=== PATIENT | male | born 1945 | race Caucasian/White ===

== ENCOUNTER 2019-03-02 16:14 | Outpatient (REF) | payer MEDICARE, BC, SELFPAY ==
[2019-03-02 19:42] LABS: ALT 34 U/L (12-78); AST 27 U/L (15-37); Albumin 3.6 g/dL (3.4-5.0); Alkaline Phosphatase 80 U/L (46-116); Anion Gap 7.6 mmol/L (3-11); BUN 16 mg/dL (7-18); Bilirubin, Total 1.4 mg/dL (0.2-1.0); CO2 28.4 mmol/L (21.0-32.0); CREATININE 0.84 mg/dL (0.70-1.30); Calcium 8.5 mg/dL (8.5-10.1); Chloride 105 mmol/L (98-107); Cholesterol 127 mg/dL (50-200); Glucose 101 mg/dL (70-100); HDL Cholesterol 65 mg/dL (40-60); LDL CHOLESTEROL 56 mg/dL (<100); Potassium 4.6 mmol/L (3.5-5.1); Sodium 141 mmol/L (136-145); Total Protein 6.6 g/dL (6.4-8.2); Triglyceride 31 mg/dL (30-150)
[2019-03-02 20:11] LABS: Creatine Kinase 109 U/L (39-308)
== END 2019-03-02 16:34 ==
LOC: NCHCN 16:14
PROVIDERS: PCP Internal Medicine; Visit Provider Internal Medicine
DX: E78.5 Hyperlipidemia, unspecified (principal); I10 Essential (primary) hypertension
CPT/HCPCS: 80053; 80061; 82550; 83721

== ENCOUNTER 2019-08-26 12:28 | Outpatient (REF) | payer MEDICARE, BC, SELFPAY ==
[2019-08-26 19:35] LABS: INR 1.1 (0.9-1.1); Prothrombin Time 11.4 sec (9.3-11.0)
[2019-08-26 19:37] LABS: ALT 28 U/L (16-63); AST 25 U/L (15-37); Albumin 3.7 g/dL (3.4-5.0); Alkaline Phosphatase 91 U/L (46-116); Anion Gap 7.3 mmol/L (3-11); BUN 20 mg/dL (7-18); Bilirubin, Total 1.2 mg/dL (0.2-1.0); CO2 26.7 mmol/L (21.0-32.0); CREATININE 0.91 mg/dL (0.70-1.30); Chloride 107 mmol/L (98-107); Glucose 101 mg/dL (70-100); Potassium 4.5 mmol/L (3.5-5.1); Sodium 141 mmol/L (136-145); Total Protein 6.9 g/dL (6.4-8.2)
[2019-08-26 19:41] LABS: HCT 39.6 % (40.0-50.0); HGB 13.1 g/dL (13.5-17.5); Mean Corp. HGB Concentration 33.1 g/dL (32.0-36.0); Mean Corpuscular Hemoglobin 31.6 pg (27.0-33.0); Mean Corpuscular Volume 95.4 fL (80-95); Mean Platelet Volume 11.1 fL (8.0-11.0); Platelet Count 181 x1000/uL (130-400); RBC 4.15 m/cumm (4.50-6.00); RBC Distribution Width 12.8 % (11.8-14.1); White Blood Cell Count 5.24 k/cumm (4.4-10.8)
== END 2019-08-26 12:48 ==
LOC: NCHCN 12:28
PROVIDERS: PCP Internal Medicine; Visit Provider Internal Medicine
DX: I48.91 Unspecified atrial fibrillation (principal); R73.09 Other abnormal glucose; G56.22 Lesion of ulnar nerve, left upper limb; E66.9 Obesity, unspecified
CPT/HCPCS: 80053; 85027; 85610

== ENCOUNTER 2019-11-24 18:43 | Outpatient (REF) | payer MEDICARE, BC, SELFPAY ==
[2019-11-24 20:59] LABS: Abs Immature Grans 0.01 k/cumm (0.0-0.09); Absolute Basophil Count 0.03 k/cumm (0.0-0.2); Absolute Eosinophil Count 0.22 k/cumm (0.0-0.7); Absolute Lymphocyte Count 1.46 k/cumm (1.2-3.4); Absolute Monocyte Count 0.83 k/cumm (0.11-0.7); Absolute Neutrophil Count 4.15 k/cumm (1.2-6.7); Basophils % 0.4; Eosinophils % 3.3; HCT 38.6 % (40.0-50.0); HGB 13.1 g/dL (13.5-17.5); Immature Grans % 0.1 %; Lymphocytes % 21.8; Mean Corp. HGB Concentration 33.9 g/dL (32.0-36.0); Mean Corpuscular Hemoglobin 32.2 pg (27.0-33.0); Mean Corpuscular Volume 94.8 fL (80-95); Monocytes % 12.4; Platelet Count 171 x1000/uL (130-400); RBC 4.07 m/cumm (4.50-6.00)
[2019-11-24 21:04] LABS: Anion Gap 6.7 mmol/L (3-11); BUN 21 mg/dL (7-18); CO2 30.3 mmol/L (21.0-32.0); CREATININE 1.02 mg/dL (0.70-1.30); Calcium 8.7 mg/dL (8.5-10.1); Chloride 104 mmol/L (98-107); Glucose 96 mg/dL (74-106); Potassium 4.3 mmol/L (3.5-5.1); Sodium 141 mmol/L (136-145)
== END 2019-11-24 19:03 ==
LOC: NCHCN 18:43
PROVIDERS: PCP Internal Medicine; Visit Provider Internal Medicine Cardiovascular Disease
DX: I48.91 Unspecified atrial fibrillation (principal)
CPT/HCPCS: 80048; 85025

== ENCOUNTER 2020-10-02 14:46 | Outpatient (REF) | payer MEDICARE, BC, SELFPAY ==
[2020-10-02 20:08] LABS: HCT 39.4 % (40.0-50.0); HGB 12.9 g/dL (13.5-17.5); MCH 31.5 pg (27.0-33.0); MCHC 32.7 % (32.0-36.0); MCV 96.3 fL (80-95); Platelet Count 155 10^3/uL (130-400); RBC 4.09 10^6/uL (4.36-5.78); RDW 12.6 % (11.8-14.1); RDW-SD 44.9 fL
[2020-10-02 20:19] LABS: ALT 25 U/L (16-63); AST 27 U/L (15-37); Albumin 3.7 g/dL (3.4-5.0); Alkaline Phosphatase 92 U/L (46-116); Anion Gap 6.5 mmol/L (3-11); BUN 17 mg/dL (7-18); Bilirubin, Total 1.3 mg/dL (0.2-1.0); CO2 26.5 mmol/L (21.0-32.0); CREATININE 0.96 mg/dL (0.70-1.30); Calcium 8.9 mg/dL (8.5-10.1); Chloride 105 mmol/L (98-107); Glucose 145 mg/dL (74-106); Potassium 4.1 mmol/L (3.5-5.1); Sodium 138 mmol/L (136-145); Total Protein 6.9 g/dL (6.4-8.2)
== END 2020-10-02 15:06 ==
LOC: NCHCN 14:46
PROVIDERS: PCP Internal Medicine; Visit Provider Internal Medicine
DX: I10 Essential (primary) hypertension (principal); I48.91 Unspecified atrial fibrillation; Z72.89 Other problems related to lifestyle
CPT/HCPCS: 80053; 85027

== ENCOUNTER 2020-11-06 20:57 | Outpatient (REF) | payer MEDICARE, BC, SELFPAY ==
[2020-11-06 19:54] LABS: Bacteria Negative HPF (Negative); C & S Indicated? No; Casts Negative LPF (Negative); Crystals Negative HPF (Negative); Epithelial Cells Rare HPF (Negative); Mucus Negative (Negative); WBC 0-2 HPF (0-5)
== END 2020-11-06 21:17 ==
LOC: NCHCN 20:57
PROVIDERS: PCP Internal Medicine; Visit Provider Internal Medicine
DX: R36.1 Hematospermia (principal)
CPT/HCPCS: 81015

== ENCOUNTER 2021-02-01 17:42 | Outpatient (REF) | payer MEDICARE, BC, SELFPAY ==
[2021-02-01 18:09] LABS: Epithelial Cells Rare HPF (Negative); Other Cells Few Renal (Negative); RBC 0-2 HPF (0-2); WBC 20-50 HPF (0-5)
[2021-02-01 18:10] LABS: Bacteria Few HPF (Negative); C & S Indicated? Yes; Casts Negative LPF (Negative); Crystals Negative HPF (Negative); Mucus Negative (Negative)
== END 2021-02-01 17:43 | disposition home or self-care (01) ==
LOC: NCHCN 17:42
PROVIDERS: PCP Internal Medicine; Visit Provider Internal Medicine
DX: R31.9 Hematuria, unspecified (principal)
CPT/HCPCS: 81015; 87086

== ENCOUNTER 2021-02-05 13:33 | Outpatient (REF) | payer MEDICARE, BC, SELFPAY | END 2021-02-05 13:34 | disposition home or self-care (01) | LOC: NCHCN 13:33 | PROVIDERS: PCP Internal Medicine; Visit Provider Internal Medicine | DX: R31.9 Hematuria, unspecified (principal) | CPT/HCPCS: 87086 ==

== ENCOUNTER 2021-07-17 09:36 | Outpatient (REF) | payer MEDICARE, BC, SELFPAY ==
[2021-07-17 17:37] LABS: HCT 38.9 % (40.0-50.0); HGB 12.8 g/dL (13.5-17.5); MCH 31.6 pg (27.0-33.0); MCHC 32.9 % (32.0-36.0); MPV 10.9 fL (8.0-11.0); Platelet Count 156 10^3/uL (130-400); RBC 4.05 10^6/uL (4.36-5.78); RDW 12.9 % (11.8-14.1); RDW-SD 45.5 fL; WBC 5.33 10^3/uL (4.4-10.8)
[2021-07-17 17:59] LABS: ALT 30 U/L (16-63); AST 25 U/L (15-37); Anion Gap 8.9 mmol/L (3-11); BUN 12 mg/dL (7-18); CO2 27.1 mmol/L (21.0-32.0); CREATININE 0.8 mg/dL (0.70-1.30); Calcium 8.7 mg/dL (8.5-10.1); Calculated LDL 62 mg/dL (<100); Chloride 106 mmol/L (98-107); Cholesterol 138 mg/dL (<200); Glucose 103 mg/dL (74-106); HDL Cholesterol 68 mg/dL (40-60); Potassium 4.8 mmol/L (3.5-5.1); Sodium 142 mmol/L (136-145); Triglyceride 41 mg/dL (<150)
[2021-07-17 18:14] LABS: Creatine Kinase 143 U/L (39-308)
== END 2021-07-17 09:37 | disposition home or self-care (01) ==
LOC: NCHCN 09:36
PROVIDERS: PCP Internal Medicine; Visit Provider Internal Medicine
DX: Z79.01 Long term (current) use of anticoagulants (principal); I25.810 Atherosclerosis of coronary artery bypass graft(s) without angina pectoris
CPT/HCPCS: 80048; 80061; 82550; 85027; 84450; 84460

== ENCOUNTER 2021-08-29 17:53 | Outpatient (REF) | payer MEDICARE, BC, SELFPAY ==
[2021-08-30 07:12] LABS: COMMENT (LAB VIEW ONLY) 107.64 mg/dL; Microalb ug/mg Crea 11.1 ug/mg Cr
[2021-08-30 18:29] LABS: PSA, Screening 6.6 ng/mL (0.0-6.5)
== END 2021-08-29 17:54 | disposition home or self-care (01) ==
LOC: NCHCN 17:53
PROVIDERS: PCP Internal Medicine; Visit Provider Internal Medicine
DX: Z12.5 Encounter for screening for malignant neoplasm of prostate (principal); R31.9 Hematuria, unspecified
CPT/HCPCS: 84153; 82043; 82570; 87086

== ENCOUNTER 2021-09-27 02:10 | Outpatient (CLI) | payer MEDICARE, BC, SELFPAY ==
--- NOTE | 2021-09-27 | DI.CT_ITS ---
Exam(s) CT ABDOMEN PELVIS WO/W EXAM: CT ABDOMEN PELVIS WO/W CLINICAL HISTORY: HEMATURIA R31.9. TECHNIQUE: Imaging Protocol: Axial computed tomography images with coronal and sagittal reformatted images were created and reviewed CONTRAST MATERIAL: Intravenous: Omnipaque 100cc Oral: None COMPARISON: No exams were available for comparison FINDINGS: VISUALIZED LUNG BASES: There is a 3 millimeter noncalcified nodule in the right lung base posterior b kelle segment. No pleural effusions.. ABDOMEN: There is no ascites. LIVER: There are no focal hepatic lesions evident . GALLBLADDER/BILIARY: Multiple calculi are noted gallbladder. Largest calculus measures 1.5 cm. Gall bladder wall is not edematous and no pericholecystic fluid. CBD is not dilated. PANCREAS: No evidence of obvious pancreatic mass. No obvious dilatation pancreatic duct. Dilatation of the pancreatic duct. SPLEEN: Spleen is not enlarged. No obvious intrasplenic lesions. Splenic and portal veins are paten t. ADRENALS: There are no significant adrenal masses. KIDNEYS:There is a small benign exophytic cyst at the anterior cortex of the right kidney which measu res 9 x 9 millimeters. Another similar size 9 millimeter cyst is seen in the inferior pole of the op posite-left kidney. There are no solid renal masses. No calculi nor hydronephrosis.. URETERS: Single nondilated ureter on each side. URINARY BLADDER: Not distended. Right-sided Hutch diverticulum measuring 2.5 x 2.0 cm. No mass nor calculus within this diverticulum. PROSTATE GLAND: Enlarged and lobulated. It projects into the bladder base. No other obvious bladder findings. ABDOMINAL AORTA: There is an low infrarenal abdominal aortic aneurysm just below the ISABELA, exhibiting maximum diameter of 3 cm and appearing saccular.. LYMPH NODES:There is no retroperitoneal nor paraaortic adenopathy. ABDOMINAL WALL: Fat containing small umbilical hernia. No bowel loops therein. No significant ingui nal hernia. GI: There is no evidence of bowel obstruction, free air, nor abscess. PELVIS: GI: No evidence of appendicitis.Sigmoid diverticulosis but no obvious acute diverticulitis. LYMPH NODES: There is no intrapelvic nor inguinal adenopathy. REPRODUCTIVE: Enlarged partially calcified lobulated prostate gland. URINARY BLADDER: As above. OSSEOUS: Sternotomy wires. No lytic osseous lesions. No blastic osseous seen. Multilevel chronic degenerative disc disease. No compression fractures IMPRESSION: 1. Cholelithiasis. Multiple gallstones. No gallbladder wall edema nor dilatation of the biliary charles e. 2. Solitary small cyst in each kidney. No solid renal masses. No calculi nor hydronephrosis. There is a solitary nondilated ureter on each side 3. Enlarged and lobulated partially calcified prostate gland projecting into the bladder base. The b ladder is not distended but does exhibit a right-sided Hutch diverticulum measuring 25 x 20 millimete rs. There is no mass nor calculus evident within the Hutch diverticulum. 4. There is a 3 cm saccular appearing low infrarenal abdominal aortic aneurysm just above the aortic bifurcation. No leak at this time. RADIATION DOSE DELIVERED: 4,445.64mGy.cm Total DLP DATA REPOSITORY: All CT scans at this facility are submitted to the National Radiology Data Registry (NRDR) Dose Index Registry (DIR) with the [employer] (ACR). RADIATION OPTIMIZATION: All CT scans at this facility use at least one of these dose optimization te chniques: automated exposure control; mA and/or kV adjustment per patient size (includes targeted exa ms where dose is matched to clinical indication); or iterative reconstruction.
[2021-09-27] MEDS: Omnipaque 350 MG/ML 100 ML BTL IJ (13:59)
== END 2021-09-27 02:30 ==
PROVIDERS: PCP Internal Medicine; Visit Provider Internal Medicine
DX: R31.9 Hematuria, unspecified (principal); N28.1 Cyst of kidney, acquired; N32.3 Diverticulum of bladder; N40.0 Benign prostatic hyperplasia without lower urinary tract symptoms; I71.4 Abdominal aortic aneurysm, without rupture; K80.20 Calculus of gallbladder without cholecystitis without obstruction
CPT/HCPCS: 74178; J3490

== ENCOUNTER → 2021-11-28 08:53 | Outpatient (BNVA) | payer MEDICARE, BC, SELFPAY | PROVIDERS: PCP Internal Medicine; Referring Provider Internal Medicine; Visit Provider Nurse Practitioner Gerontology | DX: R31.0 Gross hematuria (principal); R97.20 Elevated prostate specific antigen [PSA]; Z12.5 Encounter for screening for malignant neoplasm of prostate; Z80.42 Family history of malignant neoplasm of prostate | CPT/HCPCS: 36415; 81003; 99205 ==

== ENCOUNTER 2021-11-28 10:46 | Outpatient (REF) | payer MEDICARE, BC, SELFPAY ==
[2021-11-28 22:39] LABS: PSA, Diagnostic 9.2 ng/mL (0.0-6.5)
== END 2021-11-28 10:47 | disposition home or self-care (01) ==
LOC: LBN 10:46
PROVIDERS: PCP Internal Medicine; Visit Provider Nurse Practitioner Gerontology
DX: R31.9 Hematuria, unspecified (principal); R97.20 Elevated prostate specific antigen [PSA]
CPT/HCPCS: 84153

== ENCOUNTER 2021-12-03 01:41 | Outpatient (CLI) | payer MEDICARE, BC, SELFPAY ==
[2021-12-03 14:36] LABS: CREATININE 0.8 mg/dL (0.70-1.30)
== END 2021-12-03 01:42 | disposition home or self-care (01) ==
LOC: LBO 01:41
PROVIDERS: PCP Internal Medicine; Visit Provider Nurse Practitioner Gerontology
DX: R31.9 Hematuria, unspecified (principal)
CPT/HCPCS: 36415; 82565

== ENCOUNTER → 2022-01-01 12:52 | Outpatient (BNVA) | payer MEDICARE, BC, SELFPAY | PROVIDERS: PCP Internal Medicine; Referring Provider Internal Medicine; Visit Provider Nurse Practitioner Gerontology | DX: R31.0 Gross hematuria (principal); R97.20 Elevated prostate specific antigen [PSA]; Z80.42 Family history of malignant neoplasm of prostate | CPT/HCPCS: 99215 ==

== ENCOUNTER 2022-01-08 01:11 | Outpatient (CLI) | payer MEDICARE, BC, SELFPAY ==
--- NOTE | 2022-01-08 07:30 | DI.US_ITS ---
Exam(s) US PROSTATE BIOPSY EXAM: US PROSTATE BIOPSY CLINICAL HISTORY: pelvic MRI RAD 5,prostate nodule,n40.2 TECHNIQUE: Transrectal prostate ultrasound was provided for Dr. Morgan for guidance with performing p rostate biopsy. COMPARISON: No exams were available for comparison FINDINGS: Prostate volume 60 cc. Twelve biopsy samples were obtained. Please see procedure note for details. DATA REPOSITORY:
--- NOTE | 2022-01-08 14:00 | PROST_PTH ---
PATIENT: Parag Cervantes LOC: [facility]#:[id number] AGE/SX: 76/M ROOM: RE01/08/[address]: Rajni Galeano DNP : 1945 BED: DIS: 01/08/2022 SPEC #: [id number] RECD: 01/08/22 15:50 STATUS: CRIS REChristy #: [id number] DONTE: 01/08/22 14:[address]: Renaldo Morgan DEPT: Surgical Specimen RECD BY: Bela Hayes ENTERED: 01/08/22 15:52 SP TYPE: PROST OTHR DR: BERYL Cotton Robert E Tissues: 1 - PROSTATE NEEDLE BIOPSY 2 - PROSTATE NEEDLE BIOPSY 3 - PROSTATE NEEDLE BIOPSY 4 - PROSTATE NEEDLE BIOPSY 5 - PROSTATE NEEDLE BIOPSY 6 - PROSTATE NEEDLE BIOPSY 7 - PROSTATE NEEDLE BIOPSY 8 - PROSTATE NEEDLE BIOPSY 9 - PROSTATE NEEDLE BIOPSY 10 - PROSTATE NEEDLE BIOPSY 11 - PROSTATE NEEDLE BIOPSY 12 - PROSTATE NEEDLE BIOPSY Procedures: GROSS AND MICRO LEVEL 4 Comments: [id number]
--- NOTE | 2022-01-08 14:40 | ROE_ITS ---
Date of service: 01/08/22 Time of Service: 14:41 Operative Note Operative Note DATE OF PROCEDURE: 01/08/22 PRE-OP DIAGNOSIS: Elevated PSA POST-OP DIAGNOSIS: same Abnormal prostate MRI PROCEDURE: Ultrasound guided biopsy of the prostate SURGEON: Renaldo Morgan ANESTHESIA TYPE: Local By Surgeon Refer to Anesthesia Record ESTIMATED BLOOD LOSS: 10 PATHOLOGY: other (12 laterally directed biopsies of the prostate sent for permanent section) COMPLICATIONS: None Patient was transported to: no change Patient's condition: stable Implants: None Indications: This is a 76-year gentleman who has a finding of an elevated PSA of 9.2 ng/mL. He was evaluated with a multiparameter prostate MRI. There was a suspicious finding in the prostate in the right anterior mid gland (PI-RADS 5) the left posterior lateral mid prostate (PI-RADS 4) and in the transition zone toward the mid gland and base (PI-RADS 5). He presents for ultrasound-guided biopsy of the prostate Findings: Multiple calcifications at the junction of the transition and peripheral zones Procedure Description: The patient was given a antibiotic and mechanical bowel prep. He was brought to the radiology suite on 01/08/2022. He was placed in the left lateral position. Transrectal imaging of the prostate was then performed using a variable megahertz transducer. The prostate was imaged in transverse and longitudinal planes. The prostatic volume was calculated at 57 cc. No specific hypoechoic areas were seen in the peripheral zone. A periprostatic nerve block was then performed with 1% lidocaine without epine phrine. A total of 12 laterally directed prostate biopsies were then taken, labeled and sent to pathology for permanent section. The patient tolerated the procedure well with no complications. He will follow up in 1 to 2 weeks for his biopsy results. He may resume his Eliquis as soon as any blood in the urine or stool has subsided.
== END 2022-01-08 01:31 ==
PROVIDERS: PCP Internal Medicine; Visit Provider Nurse Practitioner Gerontology
DX: N40.2 Nodular prostate without lower urinary tract symptoms (principal); C61 Malignant neoplasm of prostate
CPT/HCPCS: 55700; 76942; 88305

== ENCOUNTER → 2022-01-17 15:10 | Outpatient (BNVA) | payer MEDICARE, BC, SELFPAY | PROVIDERS: PCP Internal Medicine; Referring Provider Internal Medicine; Visit Provider Urology | DX: C61 Malignant neoplasm of prostate (principal); R31.9 Hematuria, unspecified; N32.89 Other specified disorders of bladder; I48.91 Unspecified atrial fibrillation; I25.10 Atherosclerotic heart disease of native coronary artery without angina pectoris; Z79.01 Long term (current) use of anticoagulants; Z95.1 Presence of aortocoronary bypass graft | CPT/HCPCS: 99443 ==

== ENCOUNTER → 2022-01-30 01:44 | Outpatient (CLI) | payer MEDICARE, BC, SELFPAY ==
--- NOTE | 2022-01-30 15:03 | DI.US_ITS ---
APPROVED REPORT EXAM: Comprehensive 2D, Doppler, and color-flow Echocardiogram Patient Location: Out-Patient Seamstress Fitter: Sandi Reyna RDCS (AE) Indications: Pre operative exam, CAD, A Fib, Chronic anticoagulation, CABG Other Information Study Quality: Fair. Technically limited study due to body habitus. Conclusion Normal left ventricular wall thickness and chamber size. Estimated ejection fraction is 55%. No wal l motion abnormalities are identified Normal right ventricular size and systolic function The left atrium is moderately dilated. The right atrium is borderline dilated Mildly sclerotic trileaflet aortic valve without stenosis or regurgitation Mild mitral annular calcification. Mild mitral regurgitation Normal tricuspid valve with mild regurgitation. Estimated right ventricular systolic pressure is 30 mmHg Mildly dilated ascending aorta measuring 3.76 cm Wall motion Left Ventricle The left ventricle is normal size. The overall left ventricular systolic function appears normal. The re is normal left ventricular wall thickness. No wall motion abnormalities There is no ventricular se ptal defect visualized. LVEF is 55%. Right Ventricle Right ventricle is grossly normal in size. Right ventricular systolic function is grossly normal. Atria Left atrium is moderately dilated. Right atrium is borderline dilated. The interatrial septum is inta ct with no evidence for an atrial septal defect. Aortic Valve The Aortic valve is mildly sclerotic. Aortic valve is trileaflet. There is no aortic valvular stenosi s. No aortic regurgitation is present. Mitral Valve Mild mitral annular calcification. No evidence of mitral valve stenosis. Mild mitral regurgitation. Tricuspid Valve The tricuspid valve is normal in structure. There is no tricuspid valve stenosis. Mild tricuspid regu rgitation. The RVSP is 30.1 mmHg. Pulmonic Valve The pulmonary valve is normal in structure. There is no pulmonic valvular stenosis. Trace pulmonic re gurgitation. Great Vessels Aortic root is mildly dilated. The ascending aorta is mildly dilated. Aortic arch is not well visuali zed. IVC is normal in size and collapses >50% with inspiration. Pericardium There is no pericardial effusion. 2D Dimensions IVSD d PLAX 1.10 cm M: 0.6-1.2 LV Vol A2C d MOD 135.9 mL LVPW d PLAX 1.13 cm M: 0.6 - 1.2 LV Vol A4C d MOD 114.6 mL LVID d PLAX 4.51 cm M: 4.2 - 5.8 LA vol/ BSA A2C s A-L 65.5 mL/m2 LVDs 3.15 cm M: 2.5 - 4.0 LA vol/ BSA A4C s A-L 52.3 mL/m2 Ao Root d 3.91 cm M: 3.1 - 3.7 LA Vol/ BSA Biplane s A-L 60.7 mL/m2 RA Area A4C 16.14 cm2 LA Area A4C s MOD 30.55 cm2 RA Vol/ BSA A4C s A-L 19.1 mL/m2 LA Area A2C s MOD 35.48 cm2 Ao Asc Diam d 3.76 cm M: 2.6 - 3.4 LV EF A4C MOD 55.6 % LV EF Teichholz 56.9 % LV EF A2C MOD 46.6 % LVEF (Forde's) 49.14 % M: 52 - 72 LV EF Biplane MOD 49.1 % LV Volume 90.62 mL M: 62 - 150 SV 61.39 mL LV Volume Index 41.00 mL/m2 M: 34 - 74 SV Index 27.68 mL/m2 LV Vol Biplane MOD 124.9 mL FS 29.65 % M-Mode TAPSE 1.39 cm (M/F) >1.7 LV Diastology MV E' medial 0.093 (>0.07 m/s) MV E Vmax 1.00 (0.4-1.3 m/s) LV E/e MED 10.70 (<14) MV E' lateral 0.139 (>0.1 m/s) LV E/e LAT 7.15 (<14) MV E/E' medial 10.74 MV E/E' lateral 7.16 Aortic Valve LVOT Area 3.93 cm2 AoV Area Vmax 2.88 cm2 LVOT Vmax 1.00 m/s AoV Area/ BSA (Vmax) 1.30 cm2/m2 LVOT Mean Jean. 0.66 m/s JEFF Mean Jean. 2.67 cm2 LVOT Peak Grad 4.0 mmHg JEFF Mean Jean. Index 1.20 cm2/m2 LVOT Mean Grad 2.1 mmHg LVOT VTI 0.187 m LVOT Diam s 2.20 cm AoV Vmax 1.37 m/s Velocity Ratio 0.72 AoV Mean Jean. 0.98 m/s AoV Peak Grad 7.5 mmHg LVOT SV 73.57 mL AoV Mean Grad 4.3 mmHg AoV VTI 0.256 m AoV Area VTI 2.87 cm2 AoV Area/ BSA (VTI) 1.30 cm/m2 Mitral Valve MV DT 144 (160-240 msec) MR Vmax 4.47 m/s MV PHT 42 msec MR VTI 1.419 m MV Area PHT 5.26 cm2 MR Peak Grad 80.0 mmHg MV VTI 0.262 m MR Mean Grad 67.1 mmHg MV Area VTI 2.81 (4.0-6.0 cm2) Pulmonary Valve PV Vmax 1.24 (0.5-1.5 m/s) RVOT Peak Gr. 2.76 mmHg PV Peak Grad 6.1 mmHg RVOT Mean Gr. 1.40 mmHg PV Mean Grad 3.6 mmHg RVOT VTI 0.129 m PV VTI 0.234 m RVOT Vmax 0.83 m/s Tricuspid Valve TR Peak Grad 27.0 mmHg TR Vmax 2.60 m/s RA Pressure 3.00 mmHg RVSP (TR) 30.1 mmHg
== END ==
PROVIDERS: PCP Internal Medicine; Visit Provider Urology
DX: I25.10 Atherosclerotic heart disease of native coronary artery without angina pectoris (principal); I48.91 Unspecified atrial fibrillation; Z79.01 Long term (current) use of anticoagulants
CPT/HCPCS: 93306

== ENCOUNTER 2022-03-11 09:19 | Outpatient (CLI) | payer MEDICARE, BC, SELFPAY ==
--- NOTE | 2022-03-11 09:15 | RT.EKG_ITS ---
APPROVED REPORT Exam: Resting ECG Reason for Exam: Afib Patient Location: O HR:72 bpm ECG Measurements Heart Rate [address] [id number] P [id number] QRSd 94 QRS 61 QT 372 T 33 QTc 408 Conclusion Atrial fibrillation...V-rate 58- 93, irreg A-activity Borderline low voltage, extremity leads...all extremity leads <0.6mV PVC
== END 2022-03-11 09:20 | disposition home or self-care (01) ==
LOC: DI.CARD 09:20
PROVIDERS: PCP Internal Medicine; Visit Provider Internal Medicine Cardiovascular Disease
DX: I25.10 Atherosclerotic heart disease of native coronary artery without angina pectoris (principal); I48.91 Unspecified atrial fibrillation
CPT/HCPCS: 93010

== ENCOUNTER → 2022-03-11 11:04 | Outpatient (BNVA) | payer MEDICARE, BC, SELFPAY | PROVIDERS: PCP Internal Medicine; Referring Provider Urology; Visit Provider Internal Medicine Cardiovascular Disease | DX: I25.10 Atherosclerotic heart disease of native coronary artery without angina pectoris (principal); I48.91 Unspecified atrial fibrillation | CPT/HCPCS: 93005; 99203; 99214 ==

== ENCOUNTER → 2022-03-25 00:39 | Outpatient (CLI) | payer MEDICARE, BC, SELFPAY ==
--- NOTE | 2022-03-25 07:30 | DI.NM_ITS ---
APPROVED REPORT Exam: Exercise Treadmill Patient Location: Out-Patient Room/Bed: Stress Nurse: Thais Harding RN Ordering Provider:LORI ARANDA, Contact Number: [phone] BMI: 38.39 Baseline Rhythm: Atrial Fibrillation Comment: Frequent multi focal PVC's, occasional couplet Indications: Shortness of breath, fatigue, CAD Medical History Medical History: bladder mass, prostate CA, afib, angina, CAD, ETOH abuse, HLD, HTN, obesity, JOLENE, pr e DM, torn meniscus, shoulder impingement Cardiac Medications: Apixiban, Atorvastatin, Lisinopril, Metoprolol Allergies: None Cardiac Risk Factors: +Family history, HTN, HLD, CVD, pre DM, Obesity Previous Cardiac Procedures: CABG x4 (2016) Pretest Chest Pain Characteristics: No chest pain Exercise History: Sedentary Physical Disabilities: None Lung Sounds: Clear bilaterally Heart Sounds: S1/S2, irregular Stress Test Details Test: Exercise stress testing was performed using a Del protocol. Nuclear Acquisition: Rest Tc-99m/Stress Tc-99m 1 day Rest Isotope: Tc-99m Sestamibi. Dose: 11 Date: 03/25/2022 Injection Time: 0900 Stress Isotope: Tc-99m Sestamibi. Dose: 37 Date: 03/25/2022 Injection Time: 1103 HR Resting HR Supine: 72 bpm Max Heart Rate (APMHR): 142.484161 bpm Resting HR Standin bpm Target HR (85% APMHR): 120.559358 bpm Max HR Achieved: 148 bpm % of APMHR: 104.23 Recovery HR: 94 bpm HR response to stress: Accelerated HR response to stress Comment: Metoprolol not held for stress test per PCP BP Resting BP Supine: 132/94 mmHg Resting BP Standin/98 mmHg Max BP: 192/100 mmHg Recovery BP: 150/98 mmHg BP response to stress: Normal blood pressure response to stress. ECG Resting ECG: Atrial Fibrillation Ectopy: Frequent multifocal PVC's, occasional couplet Stress ECG: Atrial Fibrillation ST Change: No significant ST segment changes noted Comment: Frequent multifocal PVC's Recovery ECG: Atrial Fibrillation Recovery ST Change: No significant ST segment changes noted Comment: Frequent multifocal PVC's, more frequent couplets, intermittent but short lived bigeminy,ra re triplet Clinical Reason for Termination: Fatigue Stress Symptoms: General Fatigue, Dyspnea Exercise duration: 2 min06 sec Highest Stage Reached: Stage 1: 1.7 mph at 10% grade. Exercise capacity: 4.64 METs Angina Score: None Hunt Treadmill Score: 1.7 Rate Pressure Product: 31069 Stress ECG Conclusion 1. Resting electrocardiogram showed atrial fibrillation 2. Patient exercised on the Del protocol and completed a workload of 4.64 METS, limited by fatigue 3. Accelerated heart rate response to exercise. The patient achieved greater than 100% of predicted heart rate for age 4. There was no electrocardiographic evidence of myocardial ischemia 5. Atrial fibrillation was present throughout, with premature ventricular contractions versus aberran cy 6. See MPI report Hunt Treadmill Score is 1.7 which is Moderate risk. Stress Test Summary STAGE Time (mins) Speed (mph) Grade (%) HR BP SYMPTOMS METS Supine 72 132/94 Standing 77 138/98 1 3 1.7 10 143 4.6 1 min recovery 126 178/88 3 min recovery 82 192/100 6 min recovery 94 150/98 MPI Conclusion Normal myocardial perfusion without evidence of ischemia or prior infarction EF 50%, normal wall motion Radiologist Interpretation Radiologist agrees with Hose Turner's Interpretation. Radiologist Interpretation by: Gogo Shaffer MD Interpretation Date/Time: 03/25/2022 15:48:55
== END ==
PROVIDERS: PCP Internal Medicine; Visit Provider Internal Medicine Cardiovascular Disease
DX: I25.10 Atherosclerotic heart disease of native coronary artery without angina pectoris (principal); R53.83 Other fatigue; R06.02 Shortness of breath
CPT/HCPCS: 78452; 93016; 93018; 93017

== ENCOUNTER 2022-04-12 01:11 | Outpatient (CLI) | payer MEDICARE, BC, SELFPAY ==
[2022-04-12 10:16] LABS: Source Nasal/Nares
[2022-04-12 12:49] LABS: COVID-19 PCR Negative (Negative)
== END 2022-04-12 01:12 | disposition home or self-care (01) ==
LOC: LBO 01:11
PROVIDERS: PCP Internal Medicine; Visit Provider Urology
DX: Z20.822 Contact with and (suspected) exposure to COVID-19 (principal); Z01.818 Encounter for other preprocedural examination
CPT/HCPCS: 87635; U0005

== ENCOUNTER 2022-04-15 05:52 | Day surgery (SDC) | payer MEDICARE, BC, SELFPAY ==
[2022-04-15 06:24] VITALS: BP 115/81; PULSE 68; RESP 17; TEMP 36.9; O2SAT 92
--- NOTE | 2022-04-15 06:50 | HPE_ITS ---
Date of service: 04/15/22 Time of Service: 06:51 Assessment and Plan Assessment and plan (1) Bladder mass: Status: Acute Assessment and plan: For cystoscopy with TURBT. His ultimate treatment will depend on his surgical pathology (2) Prostate cancer: Status: Chronic History of Present Illness History of Present Illness Chief Complaint: Bladder mass Narrative: This is a 76-year-old gentleman who was initially seen with an elevated PSA. He underwent a multiparameter prostate MRI which showed a high suspicion for clinically significant prostate cancer. He ultimately underwent ultrasound- guided biopsies of the prostate confirmed adenocarcinoma. Given his age and tumor parameters, we are pursuing an active surveillance protocol for him. His MRI also demonstrated a mass on the left side of the bladder adjacent to the ureteral orifice. He presents now for cystoscopy with transurethral resection of this area. He has not seen any gross blood in the urine since one week after his prostate biopsy Review of Systems Narrative: No fevers or chills No vision change or dysphasia No diabetes or thyroid dysfunction Shortness of breath with exertion. No hemoptysis Hx A Fib and CAD. No chest pain. Chronic constipation improved after prostate biopsy. No nausea, vomiting, hepatitis, ulcers, jaundice No seizures, strokes or peripheral neuropathy Bleeds and bruises easily while on Eliquis No gout PFSH All Active Problems (Updated 04/15/22 @ 06:57 by Renaldo Morgan MD) Bladder mass (Acute) Prostate cancer (Chronic) Family history of prostate cancer (Acute) Hematuria (Acute) Medical History (Updated 04/15/22 @ 06:57 by Renaldo Morgan MD) Actinic keratoses Afib Angina at rest Arthritis of both knees CAD (coronary artery disease) Chronic anticoagulation Heavy alcohol consumption Hematospermia HLD (hyperlipidemia) HTN (hypertension) Obesity JOLENE (obstructive sleep apnea) Prediabetes Shoulder impingement syndrome Torn meniscus Ulnar neuropathy Surgical History S/P CABG x 4 [facility] 12/20/15 Social History Smoking/Tobacco Use Status: Former Tobacco Use Quit Date: 10/20/61 Smoking risk assessment performed?: Yes Alcohol Intake: current Alcohol Intake frequency: 3 or more drinks per day Alcohol type: beer Drug use: Rarely Substance use type: marijuana Details: 6 pack/night Do you feel safe at home: Yes Do you feel safe in your relationship?: Yes Meds Allergies and Home Medications Allergies Allergy/AdvReac Type Severity Reaction Status Date / Time No Known Allergies Allergy Verified 04/15/22 06:42 Home Medications Medication Instructions Recorded Confirmed Type apixaban 5 mg tablet (Eliquis) 5 mg PO BID 09/05/21 04/15/22 History atorvastatin 40 mg tablet 40 mg PO QHS 09/05/21 04/15/22 History cholecalciferol (vitamin D3) 50 50 mcg PO DAILY 09/05/21 04/15/22 History mcg (2,000 unit) capsule lisinopril 10 mg tablet 10 mg PO DAILY 09/05/21 04/15/22 History metoprolol tartrate 50 mg tablet 50 mg PO BID 09/05/21 04/15/22 History jwgchiwa-qpf-nfxnj acid 300 1 tab PO DAILY 09/05/21 04/15/22 History mcg-lycopene 600 mcg-lutein 300 mcg tablet (Centrum Silver Men) omega-3 fatty acids 1,000 mg 1,000 mg PO DAILY 09/05/21 04/15/22 History capsule (Fish Oil Concentrate) saw palm 50 mg-pyg 20 mg-nettl 25 1 cap PO DAILY 09/05/21 04/15/22 History mg-pump 100 [id number]-it-Zn-Cu capsule (Prostate Control) triamcinolone acetonide 0.1 % 1 applic topical BID 09/05/21 04/15/22 History topical cream Exam Const General: cooperative Nutritional Appearance: obese Neck Neck: normal visual inspection and supple Resp Effort & Inspection: normal respiratory effort Auscultation: clear to auscultation bilaterally Cardio Rate: abnormal rate Rhythm: abnormal rhythm GI Palpation: soft Neuro General: patient alert, patient awake and patient oriented x3 Results Last Vital Signs Temp 36.9 C 04/15/22 06:24 Pulse 68 04/15/22 06:24 Resp 17 04/15/22 06:24 BP 115/81 04/15/22 06:24 Pulse Ox 92 04/15/22 06:24
--- NOTE | 2022-04-15 07:00 | W.ANESPRE ---
General Info Date of Service Date Performed: 04/15/22 Height: 5 ft 9 in Weight: 117.2 kg Body Mass Index (BMI): 38.1 Surgical Procedure: Operation Date: 04/15/22 07:40 Proposed Procedure Side Surgeon p Cysto w/Transurethral Resection Bladder Tumor Renaldo Morgan MD Meds Allergies and Home Medications Allergies Allergy/AdvReac Type Severity Reaction Status Date / Time No Known Allergies Allergy Verified 04/15/22 06:42 Home Medication Medication Instructions Recorded apixaban 5 mg tablet (Eliquis) 5 mg PO BID 09/05/21 atorvastatin 40 mg tablet 40 mg PO QHS 09/05/21 cholecalciferol (vitamin D3) 50 50 mcg PO DAILY 09/05/21 mcg (2,000 unit) capsule lisinopril 10 mg tablet 10 mg PO DAILY 09/05/21 metoprolol tartrate 50 mg tablet 50 mg PO BID 09/05/21 ottuebyx-kvh-kexlm acid 300 1 tab PO DAILY 09/05/21 mcg-lycopene 600 mcg-lutein 300 mcg tablet (Centrum Silver Men) omega-3 fatty acids 1,000 mg 1,000 mg PO DAILY 09/05/21 capsule (Fish Oil Concentrate) saw palm 50 mg-pyg 20 mg-nettl 25 1 cap PO DAILY 09/05/21 mg-pump 100 ii-najk-dh-Zn-Cu capsule (Prostate Control) triamcinolone acetonide 0.1 % 1 applic topical BID 09/05/21 topical cream Current Visit Medications: Current Medications Generic Name Dose Route Start Last Admin Trade Name Freq PRN Reason Stop Dose Admin Ringer's Solution 1,000 mls @ 80 mls/hr 04/15/22 06:00 IV 05/12/22 23:59 INFUSION LAURA Cefazolin Sodium/Dextrose 2 gm in 50 mls @ 100 mls/hr 04/15/22 06:00 Ancef Duplex IVPB 05/12/22 23:59 PREOP LAURA IV Miscellaneous Supplies 1 each 04/15/22 06:00 Iv Access IV 05/12/22 23:59 DIRECTED LAURA Sodium Chloride 0 ml 04/15/22 06:00 Normal Saline Flush 10 Ml Syr IV 05/12/22 23:59 PRN PRN Sodium Chloride 0 ml 04/15/22 06:00 Normal Saline 10 Ml Vial IJ 05/12/22 23:59 DIRECTED PRN Sterile Water 0 ml 04/15/22 06:00 Water,Injection,Sterile 10 Ml Vial IJ 05/12/22 23:59 DIRECTED PRN PFSH Active Problems Active Problems: Problem Status Onset Code Bladder mass N32.89 Prostate cancer C61 Family history of prostate cancer Z80.42 Hematuria R31.9 Medical History Medical History (Updated 04/15/22 @ 06:57 by Renaldo Morgan MD) Actinic keratoses Afib Angina at rest Arthritis of both knees CAD (coronary artery disease) Chronic anticoagulation Heavy alcohol consumption Hematospermia HLD (hyperlipidemia) HTN (hypertension) Obesity JOLENE (obstructive sleep apnea) Prediabetes Shoulder impingement syndrome Torn meniscus Ulnar neuropathy Surgical History Surgical History S/P CABG x 4 Visaliastate 12/20/15 RH Tobacco Smoking/Tobacco Use Status: Former Tobacco Use Alcohol Alcohol Intake: current Alcohol intake frequency: 3 or more drinks per day Alcohol type: beer Substance Use Substance use: Rarely Substance use type: marijuana Details: 6 pack/night Vital Signs and Lab Results Vital Signs Most Recent Vital Signs in EMR: Most Recent Vital Signs Temp Pulse Resp BP Pulse Ox 36.9 C 68 17 115/81 92 04/15/22 06:24 04/15/22 06:24 04/15/22 06:24 04/15/22 06:24 04/15/22 06:24 Lab Results Blood Type / Crossmatch: No Data to Display Complete Blood Count: No Data to Display Complete Metabolic Panel: No Data to Display Liver Function Panel: No Data to Display Coagulation Panel: No Data to Display Cardiac Panel: No Data to Display Arterial Blood Gas: No Data to Display Venous Blood Gas: No Data to Display Pancreas Panel: No Data to Display Thyroid Panel: No Data to Display Infectious Disease: Coronavirus (COVID-19)(PCR) Negative (Negative) 04/12/22 08:10 Coronavirus 2019 Source Nasal/Nares 04/12/22 08:10 Blood Cultures: No Data to Display Toxicology Panel: No Data to Display Imaging and Studies Imaging and Studies Study information below may be from another EMR and interpreted by another provider. Please see original notes in EMR for more complete details. EKG Summary: Conclusion Atrial fibrillation...V-rate 58- 93, irreg A-activity Borderline low voltage, extremity leads...all extremity leads <0.6mV PVC Stress Test Summary: Stress ECG Conclusion 1. Resting electrocardiogram showed atrial fibrillation 2. Patient exercised on the Del protocol and completed a workload of 4.64 METS, limited by fatigue 3. Accelerated heart rate response to exercise. The patient achieved greater than 100% of predicted heart rate for age 4. There was no electrocardiographic evidence of myocardial ischemia 5. Atrial fibrillation was present throughout, with premature ventricular contractions versus aberrancy 6. See MPI report Hunt Treadmill Score is 1.7 which is Moderate risk. Echocardiogram Summary: Conclusion Normal left ventricular wall thickness and chamber size. Estimated ejection fraction is 55%. No wall motion abnormalities are identified Normal right ventricular size and systolic function The left atrium is moderately dilated. The right atrium is borderline dilated Mildly sclerotic trileaflet aortic valve without stenosis or regurgitation Mild mitral annular calcification. Mild mitral regurgitation Normal tricuspid valve with mild regurgitation. Estimated right ventricular systolic pressure is 30 mmHg Mildly dilated ascending aorta measuring 3.76 cm Anesthesia Assessment and Plan Anesthesia History Personal History: No History of Anesthesia Complications Family History: No Family History of Anesthesia Complications Exercise Tolerance Exercise Tolerance: Metabolic Equivalents>4 Pertinent Negatives Pertinent Negatives: No Symptoms of GERD, No Major Cardiovascular Symptoms or Complaints (A fib (chronic)), No Major Pulmonary Symptoms or Complaints and No History of CVA/TIA Cardiac & Pulmonary Exam Cardiac Exam: Normal S1/S2 Heart Sounds Pulmonary Exam: Clear Bilateral Breath Sounds Implantable Cardiac Device Does patient have a Pacemaker or an ICD?: No Airway Exam Known Difficult Airway: No Mallampati Class: 2 Mouth Opening: Normal (> 3cm) Thyromental Distance: Greater than 3 cm Facial Hair: Full Nelson Neck Range of Motion: Full ROM Neck Circumference: Normal Teeth Condition: Normal Dentition ASA Classification ASA Score: ASA 2 Emergency Case?: No NPO Status NPO Status: NPO Clears >2 hours, Solids >8 hours Anesthesia Plan Resuscitation Status: Full Code Anesthesia Technique: General Anesthesia Airway Planned: Natural Airway Monitors Used: Standard Monitors
[2022-04-15] MEDS: Lactated Ringers 1,000 ML 80 ML IV (07:13)
[2022-04-15] MEDS: ceFAZolin 2 GM/50 ML BAG IVPB (07:27)
[2022-04-15 07:29] VITALS: BMI 38.1
--- NOTE | 2022-04-15 07:47 | BLADDER_PTH ---
PATIENT: Parag Cervantes LOC: [facility] U#:[id number] AGE/SX: 76/M ROOM: RE04/15/[address]: Renaldo Morgan MD : 1945 BED: DIS: 04/15/2022 SPEC #: [id number] RECD: 04/15/22 13:00 STATUS: CRIS REQ #: [id number] DONTE: 04/15/22 07:[address]: Renaldo Morgan DEPT: Surgical Specimen RECD BY: Bela Hayes ENTERED: 04/15/22 13:02 SP TYPE: Bladder OTHR DR: Kingsley Handy Tissues: 1 - BLADDER BIOPSY Procedures: GROSS AND MICRO LEVEL 5 Comments: [id number]
--- NOTE | 2022-04-15 07:59 | W.PM.OP ---
Date of service: 04/15/22 Time of Service: 07:59 Operative Note Operative Note DATE OF PROCEDURE: 04/15/22 PRE-OP DIAGNOSIS: Bladder mass POST-OP DIAGNOSIS: same PROCEDURE: cystoscopy with TURBT SURGEON: Renaldo Morgan ANESTHESIA TYPE: General:No Airway Refer to Anesthesia Record ESTIMATED BLOOD LOSS: 25 PATHOLOGY: other (bladder tumor) COMPLICATIONS: None Patient was transported to: same day Patient's condition: stable Implants: 16 bangladeshi elizabeth with 10 cc in sterile balloon Indications: This is a 76-year-old gentleman who was initially seen for an elevated PSA. He was evaluated with a multiparameter prostate MRI. The imaging studies showed the likelihood of clinically significant prostate cancer, but also showed a mass in the bladder. The patient underwent ultrasound-guided biopsies of the prostate which confirmed adenocarcinoma. He is being monitored with an active surveillance protocol. He presents now for cystoscopy with transurethral resection of his bladder mass. Findings: Papillary lesion adjacent to the left ureteral orifice. The mass measured 2 to 3 cm in largest dimension Procedure Description: The patient was brought to the operating room on 04/15/2022. He was given a dose of preoperative antibiotics. After successful induction of general anesthesia, he was placed in the dorsal lithotomy position. His genitalia was prepped and draped. 2% Xylocaine jelly was instilled into the urethra to act as a local anesthetic. A 22 Mongolian rigid cystoscope was passed through the urethra into the bladder. The urethra and bladder were inspected with a 30 degree lens. The pendulous, bulbar and membranous urethra all appeared normal with no strictures. The prostatic urethra showed some trilobar enlargement with a very small median lobe. The bladder neck was entered and the bladder mucosa was inspected. The right ureteral orifice appeared normal. Just lateral to the left ureteral orifice, a papillary lesion was identified. The lesion in the typical appearance of a urothelial cell carcinoma. The remainder of the bladder was inspected using both a 30 and a 70 degree lens. No additional lesions were identified. We then removed the cystoscope and passed a 24 Mongolian resectoscope sheath through the urethra into the bladder. Transurethral resection of the visible tumor was performed using an [employer] resectoscope and bipolar cautery. All resected tissue was evacuated and sent to pathology for permanent section. The base of the resection site was cauterized using the coagulation current. Care was taken not to cauterize around the ureteral orifice. Because of the depth of the resection, we elected to place a Elizabeth catheter. We chose a 16 Mongolian catheter and passed it through the urethra into the bladder. The catheter balloon was inflated with 10 cc of sterile water and the catheter was hooked to gravity drainage. The patient tolerated the procedure well with no complications.
--- NOTE | 2022-04-15 08:02 | W.PM.DSUDISC ---
Discharge Plan Disposition Patient Disposition: HOME Condition: Good Discharge Details Reason For Visit: Bladder tumor Attending Provider: Renaldo Morgan Primary Care Provider: Kingsley Handy Meds and New Rx's Prescriptions: No Action Prostate Control 14-12-76-100 mg capsule 1 cap PO DAILY Eliquis 5 mg tablet 5 mg PO BID atorvastatin 40 mg tablet 40 mg PO QHS metoprolol tartrate 50 mg tablet 50 mg PO BID lisinopril 10 mg tablet 10 mg PO DAILY triamcinolone acetonide 0.1 % cream 1 applic topical BID Centrum Silver Men 300-600-300 mcg tablet 1 tab PO DAILY cholecalciferol (vitamin D3) 50 mcg (2,000 unit) capsule 50 mcg PO DAILY omega-3 fatty acids [Fish Oil Concentrate] 1,000 mg capsule 1,000 mg PO DAILY Discharge Instructions Additional Instructions: elizabeth to leg bag - instruct pt in care followup @ 1 week for elizabeth removal (could be as early as Friday) appt with me @ 2 weeks to review surgical pathology may restart Eliquis once catheter is removed Activity:: Activity as Tolerated Shower/Bathe:: 24 hours Equipment/Supplies:: elizabeth to leg bag Diet:: As Tolerated Discharge Orders Discharge Orders: Discharge Order (Routine); Ordered 04/15/22 Ordered By: Renaldo Morgan DS: Diagnosis Discharge Diagnosis (1) Bladder mass: Status: Acute (2) Prostate cancer: Status: Chronic
[2022-04-15 08:07] VITALS: BP 96/62; PULSE 59; RESP 16; TEMP 36.5; O2SAT 92
--- NOTE | 2022-04-15 08:53 | W.ANESPOSTOP ---
Postoperative Evaluation Date, Time and Location Date Performed: 04/15/22 Time Performed: 08:53 Patient Location: Day Surgery Unit Vital Signs Most Recent Imported Vital Signs: Most Recent Vital Signs Temp Pulse Resp BP Pulse Ox 36.9 C 68 17 115/81 92 04/15/22 06:24 04/15/22 06:24 04/15/22 06:24 04/15/22 06:24 04/15/22 06:24 Most Recent Manually Entered Vital Signs: Adult Blood Pressure: 96/62 Heart Rate: 59 Respirations: 16 Oxygen Saturation (%): 92 Temperature (C): 36.5 C Pain Score (0-10 Scale): 0 Pain Score Most Recent Pain Score: Most Recent Pain Score Pain Level 0 04/15/22 06:24 Assessment Mental Status: Awake (Alert & Oriented to Patient Baseline) Airway and Respiratory Function: Patent airway with normal (patient baseline) respiratory exam Cardiovascular Function: Hemodynamically Stable Hydration Status: Adequately Hydrated Nausea & Vomiting: No Nausea or Vomiting Pain: Pt. Denies Any Pain Peripheral Nerve Block: Patient did not receive a nerve block
[2022-04-15 08:57] VITALS: BP 96/62; PULSE 59; RESP 16; TEMPC 36.5; O2SAT 92
[2022-04-15 09:13] VITALS: BP 131/83; PULSE 59; RESP 16; TEMP 36.5; O2SAT 93
== END 2022-04-15 09:45 | disposition home or self-care (01) ==
PROVIDERS: PCP Internal Medicine; Visit Provider Urology
PROC: 0TBB8ZZ Excision of Bladder, Via Natural or Artificial Opening Endoscopic (ICD-10-PCS; CPT 52235; principal; 2022-04-15 07:30)
DX: N32.89 Other specified disorders of bladder (principal); C61 Malignant neoplasm of prostate; I48.91 Unspecified atrial fibrillation; I25.10 Atherosclerotic heart disease of native coronary artery without angina pectoris
CPT/HCPCS: 52235; 88305; 88307; J0690; J1100; J2405

== ENCOUNTER → 2022-04-17 12:06 | Outpatient (BNVA) | payer MEDICARE, BC, SELFPAY | PROVIDERS: PCP Internal Medicine; Referring Provider Internal Medicine; Visit Provider Nurse Practitioner Gerontology | DX: R31.9 Hematuria, unspecified (principal); N32.89 Other specified disorders of bladder | CPT/HCPCS: 99214 ==

== ENCOUNTER → 2022-04-23 07:48 | Outpatient (BNVA) | payer MEDICARE, BC, SELFPAY | PROVIDERS: PCP Internal Medicine; Referring Provider Internal Medicine; Visit Provider Urology | DX: C61 Malignant neoplasm of prostate (principal); C67.9 Malignant neoplasm of bladder, unspecified | CPT/HCPCS: 99213 ==

== ENCOUNTER 2022-04-24 05:45 | Inpatient (IN) | payer MEDICARE, BC, SELFPAY ==
[2022-04-24] VITALS (100 sets, daily range): BP systolic 106–163; BP diastolic 53–78; PULSE 81–143; RESP 11–49; TEMP 36.5–39.1; O2SAT 89–99
--- NOTE | 2022-04-24 | DI.US_ITS ---
Exam(s) US RENAL EXAM: US RENAL CLINICAL HISTORY: urosepsis. TECHNIQUE: [place] scale, color and spectral Doppler were used. COMPARISON: No exams were available for comparison FINDINGS: Exam is somewhat limited by patient body habitus. Renal size in cm: Right: 12.2 left: 11.3 Echogenicity: Normal Hydronephrosis: No Cyst or mass: No Nephrolithiasis: No Bladder:Not well distended. Prevoid vol: 105 cc. The patient voided 20 minutes prior to the exam Postvoid vol:Patient was unable to void again. Prostate not visualized IMPRESSION: No evidence hydronephrosis. Limited exam due to patient body habitus. DATA REPOSITORY:
--- NOTE | 2022-04-24 05:45 | RT.EKG_ITS ---
APPROVED REPORT Exam: Resting ECG Reason for Exam: dizzy Patient Location: E HR:108 bpm ECG Measurements Heart Rate 108 AXIS PA [id number] P [id number] QRSd 96 QRS 33 QT 325 T 45 QTc 435 Conclusion Atrial fibrillation...V-rate 79-142, irreg A-activity
--- NOTE | 2022-04-24 06:00 | DI.CT_ITS ---
Exam(s) CT HEAD CERVICAL SPINE WO EXAM: CT HEAD CERVICAL SPINE WO CLINICAL HISTORY: fal, antocoagulated, weakness. TECHNIQUE: Imaging Protocol: Axial computed tomography images with coronal and sagittal reformatted images were created and reviewed COMPARISON: No exams were available for comparison FINDINGS: Head CT Ventricles and Extra axial spaces: Normal in size and morphology for the patient's age. Hemorrhage: None. Cerebral parenchyma: Minimal atrophy, otherwise normal. Midline shift: None. Brainstem/Cerebellum: Normal. Calvarium: Normal. Visualized Paranasal sinuses/Mastoids: Clear. Cervical Spine CT BONES: Vertebral body heights are maintained. There is reversal of the normal cervical lordosis likel y secondary to combination of neck positioning and degenerative changes. There is no evidence of acu te fracture. Advanced degenerative disc changes and facet degenerative changes are seen at multiple levels . SOFT TISSUES: No paraspinal hematoma. The airway appears intact. No pneumothorax is seen at the lung apices. IMPRESSION: Head CT: No acute abnormality. C-spine CT: Degenerative changes, no acute abnormality. RADIATION DOSE DELIVERED: 1,533.78mGy.cm Total DLP DATA REPOSITORY: All CT scans at this facility are submitted to the National Radiology Data Registry (NRDR) Dose Index Registry (DIR) with the [employer] (A[employer]). RADIATION OPTIMIZATION: All CT scans at this facility use at least one of these dose optimization te chniques: automated exposure control; mA and/or kV adjustment per patient size (includes targeted exa ms where dose is matched to clinical indication); or iterative reconstruction.
--- NOTE | 2022-04-24 06:00 | DI.RAD_ITS ---
Exam(s) XR CHEST 2V PA LATERAL EXAM: XR CHEST 2V PA LATERAL CLINICAL HISTORY: fever, weakness TECHNIQUE: 2D digital imaging was performed. COMPARISON: No exams were available for comparison FINDINGS: Exam is limited by under penetration and suboptimal pulmonary inflation. The heart is enlarged. Alexis rnal wires are noted. No focal infiltrate or effusion. IMPRESSION: No acute abnormality. DATA REPOSITORY: RADIATION DOSE DELIVERED:
--- NOTE | 2022-04-24 06:09 | ED.GENADUL_ITS ---
Discharge Plan Disposition Patient Disposition: [facility] INPATIENT Condition: Stable Discharge Details Clinical Impression: Fall, Acute UTI Primary Care Provider: Kingslye Handy ED Provider: Favio Chaney Home Meds and New Rx's Prescriptions: No Action Prostate Control 76-15-88-100 mg capsule 1 cap PO DAILY Eliquis 5 mg tablet 5 mg PO BID atorvastatin 40 mg tablet 40 mg PO QHS metoprolol tartrate 50 mg tablet 50 mg PO BID lisinopril 10 mg tablet 10 mg PO DAILY triamcinolone acetonide 0.1 % cream 1 applic topical BID Centrum Silver Men 300-600-300 mcg tablet 1 tab PO DAILY cholecalciferol (vitamin D3) 50 mcg (2,000 unit) capsule 50 mcg PO DAILY omega-3 fatty acids [Fish Oil Concentrate] 1,000 mg capsule 1,000 mg PO DAILY Medical Decision Making <Alan Sanchez MD - Last Filed: 04/24/22 07:02> 76-year-old male who underwent cystoscopy with resection of bladder tumor on April 15. The catheter was removed on April 23. Last night patient had unwitnessed fall approximately 2:30 in the morning. He was found by EMS to have mild weakness, confusion and a fever. His states yesterday he was weak, a little out of it, and that when he fell early in the morning he was unable to get up and she found him on the floor this morning. He arrives to the ER awake and alert, oriented. His exam is reassuring but notes resting pulse approximately 100 and subtle hypoxia for which he is given 2 L oxygen. Differential diagnosis includes occult or aspiration pneumonia, electrolyte abnormality, must exclude ACS or traumatic injury. Patient IV access established, referred for CT scan of the head and cervical spine, chest x-ray, laboratory work-up with urinalysis and blood cultures. Labs noted elevated white blood cell count and evidence of mild dehydration. Fluids initiated. Patient will be signed out to Dr. Hector Polo pending review of his imaging and reevaluation. <Favio Chaney MD - Last Filed: 04/24/22 07:57> 76-year-old male who underwent cystoscopy with resection of bladder tumor on April 15. The catheter was removed on April 23. Last night patient had unwitnessed fall approximately 2:30 in the morning. He was found by EMS to have mild weakness, confusion and a fever. His states yesterday he was weak, a little out of it, and that when he fell early in the morning he was unable to get up and she found him on the floor this morning. He arrives to the ER awake and alert, oriented. His exam is reassuring but notes resting pulse approximately 100 and subtle hypoxia for which he is given 2 L oxygen. Differential diagnosis includes occult or aspiration pneumonia, electrolyte abnormality, must exclude ACS or traumatic injury. Patient IV access established, referred for CT scan of the head and cervical spine, chest x-ray, laboratory work-up with urinalysis and blood cultures. Labs noted elevated white blood cell count and evidence of mild dehydration. Fluids initiated. Patient will be signed out to Dr. Hector Polo pending review of his imaging and reevaluation. 7: 57 evidence of UTI. Likely contributing to delirium and fall. CT negative. X-ray negative. Ceftriaxone initiated. Patient admitted for antibiotics fluid hydration close monitoring of mental status and strength. HPI <Alan Sanchez MD - Last Filed: 04/24/22 07:02> General Mode of arrival: EMS . Date/Time Provider Initiated Documentation: 04/24/22 06:03 . Limitations to Documentation: no limitations . Information obtained by: patient, family and EMS . History of Present Illness 76 year old M presents to the emergency department with the chief complaint of Unwitnessed fall this AM. Fever 102, weakness., described as moderate, Patient reports no radiation. Patient started experiencing this hour(s) No relieving factors improve symptom(s), No exacerbating factors reported . Patient notes fever/chills and weakness; denies diaphoresis and headaches. Patient did receive the following treatments prior to arrival, none Related Data Home Medications Medication Instructions Recorded Confirmed apixaban 5 mg tablet (Eliquis) 5 mg PO BID 09/05/21 04/24/22 atorvastatin 40 mg tablet 40 mg PO QHS 09/05/21 04/24/22 cholecalciferol (vitamin D3) 50 50 mcg PO DAILY 09/05/21 04/24/22 mcg (2,000 unit) capsule lisinopril 10 mg tablet 10 mg PO DAILY 09/05/21 04/24/22 metoprolol tartrate 50 mg tablet 50 mg PO BID 09/05/21 04/24/22 ndxunnyx-psk-ouhll acid 300 1 tab PO DAILY 09/05/21 04/24/22 mcg-lycopene 600 mcg-lutein 300 mcg tablet (Centrum Silver Men) omega-3 fatty acids 1,000 mg 1,000 mg PO DAILY 09/05/21 04/24/22 capsule (Fish Oil Concentrate) saw palm 50 mg-pyg 20 mg-nettl 25 1 cap PO DAILY 09/05/21 04/15/22 mg-pump 100 kl-htks-ff-Zn-Cu capsule (Prostate Control) triamcinolone acetonide 0.1 % 1 applic topical BID 09/05/21 04/15/22 topical cream Allergies Allergy/AdvReac Type Severity Reaction Status Date / Time No Known Allergies Allergy Verified 04/24/22 05:59 General Stated Complaint: AMS/LOC PRASHANT: 2 Review of Systems <Alan Sanchez MD - Last Filed: 04/24/22 07:02> Narrative: Unsure of loss of consciousness. Was too weak to get up. Been urinating but with blood as he was told to expect. Denies cough or shortness of breath. 8 systems were reviewed and otherwise - PFSH <Alan Sanchez MD - Last Filed: 04/24/22 07:02> All Active Problems (Updated 04/24/22 @ 07:57 by Favio Chaney MD) Fall (Acute) Acute UTI (Acute) Bladder cancer (Acute) Prostate cancer (Chronic) Family history of prostate cancer (Acute) Hematuria (Acute) Medical History Actinic keratoses Afib Angina at rest Arthritis of both knees Bladder mass CAD (coronary artery disease) Chronic anticoagulation Heavy alcohol consumption Hematospermia HLD (hyperlipidemia) HTN (hypertension) Obesity JOLENE (obstructive sleep apnea) Prediabetes Shoulder impingement syndrome Torn meniscus Ulnar neuropathy Surgical History S/P CABG x 4 [facility] 12/20/15 RH Social History Smoking/Tobacco Use Status: Former Tobacco Use Quit Date: 10/20/61 Smoking risk assessment performed?: Yes Alcohol Intake: current Alcohol Intake frequency: 3 or more drinks per day Alcohol type: beer Drug use: Rarely Substance use type: marijuana Details: 6 pack/night Do you feel safe at home: Yes Do you feel safe in your relationship?: Yes Exam <Alan Sanchez MD - Last Filed: 04/24/22 07:02> Narrative Exam Narrative: GEN: awake, alert, oriented 3. Pleasant, well groomed, interactive. HEAD: Normocephalic, atraumatic ENT: Mucous membranes dry, oropharynx unremarkable, External ear exam unremarkable EYES: PERRL, EOMI NECK: Full ROM, no MONIQUE, no menigismus CHEST/RESP: Nontender, clear to auscultation bilateral, no wheeze/rhonchi/rales CARDIOVASCULAR: Irregularly irregular, no murmur, rub cathleen. 2+ Rad pulse bilateral ABDOMEN: Soft, nontender, no mass. +Bowel sounds EXT: Full ROM, no edema, no rash Neuro: Grossly normal neurologic exam, conversant, interactive. Psych: Speech fluent, thoughts congruent, affect normal Course <Alan Sanchez MD - Last Filed: 04/24/22 07:02> Vital Signs Vital signs: Vital Signs Temperature 39.1 C H 04/24/22 05:55 Pulse 104 H 04/24/22 05:55 Respiratory Rate 28 H 04/24/22 05:55 Blood Pressure 144/78 H 04/24/22 05:55 Pulse Oximetry 93 04/24/22 05:55 Temperature 39.1 C H 04/24/22 05:55 Temperature Source Oral 04/24/22 05:55 Pulse 104 H 04/24/22 05:55 Respiratory Rate 25 H 04/24/22 06:01 Respiratory Effort 04/24/22 06:01 Respiratory Depth Normal 04/24/22 06:01 Respiratory Pattern Tachypnea 04/24/22 06:01 Blood Pressure 144/78 H 04/24/22 05:55 Blood Pressure Position Supine 04/24/22 05:55 Pulse Oximetry 93 04/24/22 05:55 Oxygen Delivery Method Room Air 04/24/22 05:55 Oxygen Flow Rate 0 04/24/22 05:55 Pain Level 0 04/24/22 05:55 Sign Out <Alan Sanchez MD - Last Filed: 04/24/22 07:02> Sign Out Data: Sign Out Comment: Followup imaging, labs Last updated by Alan Sanchez MD at 04/24/22 07:03
[2022-04-24] MEDS: Normal Saline 1,000 ML 125 ML IV ×2 (06:15→10:02)
[2022-04-24 06:24] LABS: Abs Immature Grans 0.07 10^3/uL (0.0-0.06); Absolute Lymphocyte Count 0.26 10^3/uL (1.2-3.4); Basophils % 0.1; HCT 40.8 % (40.0-50.0); HGB 13.7 g/dL (13.5-17.5); Immature Grans % 0.5; Lymphocytes % 1.9; MCH 32.3 pg (27.0-33.0); MCHC 33.6 % (32.0-36.0); MCV 96 fL (80-95); MPV 10.3 fL (8.0-11.0); Monocytes % 7.9; Neutrophils % 89.6; Platelet Count 141 10^3/uL (130-400); RBC 4.24 10^6/uL (4.36-5.78); RDW 12.3 % (11.8-14.1); RDW-SD 43.5 fL; WBC 13.48 10^3/uL (4.4-10.8)
[2022-04-24 06:25] LABS: Absolute Basophil Count 0.01 10^3/uL (0.0-0.2); Absolute Monocyte Count 1.06 10^3/uL (0.1-0.8); Absolute Neutrophil Count 12.08 10^3/uL (1.2-6.7)
[2022-04-24 06:37] LABS: Lactate 1.4 mmol/L (0.6-1.4)
[2022-04-24 06:42] LABS: INR 1.3 (0.9-1.1); Prothrombin Time 13.2 sec (9.3-11.0)
[2022-04-24 06:45] LABS: ALT 27 U/L (16-63); AST 32 U/L (15-37); Albumin 3.6 g/dL (3.4-5.0); Alkaline Phosphatase 81 U/L (46-116); Anion Gap 10.5 mmol/L (3-11); BUN 22 mg/dL (7-18); Bilirubin, Total 2.8 mg/dL (0.2-1.0); CO2 22.5 mmol/L (21.0-32.0); CREATININE 1.5 mg/dL (0.70-1.30); Calcium 8.9 mg/dL (8.5-10.1); Chloride 97 mmol/L (98-107); Estimated GFR 45.26 (mL/min/1.73m2); Glucose 152 mg/dL (74-106); Magnesium 1.7 mg/dL (1.8-2.4); Potassium 4.5 mmol/L (3.5-5.1); Sodium 130 mmol/L (136-145); Total Protein 7.7 g/dL (6.4-8.2); Troponin I < 50 ng/L (<or=60)
--- NOTE | 2022-04-24 07:08 | DI.VRAD_ITS ---
PROCEDURE INFORMATION: Exam: CT Head Without Contrast Exam date and time: 04/24/2022 6:49 AM Age: 76 years old Clinical indication: Injury or trauma; Blunt trauma (contusions or hematomas); With loss of consciousness; Not specified; Syncope and collapse and other: General weakness; Injury date: 04/24/22; Injury details: Fall, syncope TECHNIQUE: Imaging protocol: Computed tomography of the head without contrast. Radiation optimization: All CT scans at this facility use at least one of these dose optimization techniques: automated exposure control; mA and/or kV adjustment per patient size (includes targeted exams where dose is matched to clinical indication); or iterative reconstruction. COMPARISON: No relevant prior studies available. FINDINGS: Brain: Normal. No hemorrhage. Unremarkable white matter. No mass effect. Cerebral ventricles: No ventriculomegaly. Paranasal sinuses: Visualized sinuses are unremarkable. No fluid levels. Mastoid air cells: Visualized mastoid air cells are well aerated. Bones/joints: Unremarkable. No acute fracture. Soft tissues: Unremarkable. IMPRESSION: No acute intracranial abnormality. PROCEDURE INFORMATION: Exam: CT Cervical Spine Without Contrast Exam date and time: 04/24/2022 6:49 AM Age: 76 years old Clinical indication: Injury or trauma; Blunt trauma (contusions or hematomas); With loss of consciousness; Not specified; Syncope and collapse and other: General weakness; Injury date: 04/24/22; Injury details: Fall, syncope TECHNIQUE: Imaging protocol: Computed tomography of the cervical spine without contrast. Radiation optimization: All CT scans at this facility use at least one of these dose optimization techniques: automated exposure control; mA and/or kV adjustment per patient size (includes targeted exams where dose is matched to clinical indication); or iterative reconstruction. COMPARISON: No relevant prior studies available. FINDINGS: Bones/joints: Reversal of the normal cervical lordosis. No evidence of fracture. Discs/Spinal canal/Neural foramina: Intervertebral disc space narrowing C3-C4, C6-C7. Lungs: Lung apices are normal. Soft tissues: Unremarkable. IMPRESSION: 1. No acute traumatic cervical spine injury. 2. Multilevel degenerative changes. Dictated and Authenticated by: Pan Stanford MD. Ordering:SOUTH Phillips MD
[2022-04-24 07:14] LABS: COVID-19 PCR Negative (Negative); Influenza A PCR Negative (Negative); Influenza B PCR Negative (Negative); RSV PCR Negative (Negative)
[2022-04-24] MEDS: Acetaminophen 325 MG TAB 650 MG PO (07:16)
[2022-04-24] MEDS: MAGNESIUM SULFATE 2 GM/50 ML BAG IVPB (07:17)
[2022-04-24 07:24] LABS: Source Nasopharynx
--- NOTE | 2022-04-24 07:35 | DI.VRAD_ITS ---
PROCEDURE INFORMATION: Exam: XR Chest Exam date and time: 04/24/2022 7:01 AM Age: 76 years old Clinical indication: Fever and other: Weakness; Patient HX: Fever, weakness TECHNIQUE: Imaging protocol: Radiologic exam of the chest. Views: 2 views. COMPARISON: CT HEAD CERVICAL SPINE WO 04/24/2022 6:49 AM FINDINGS: Lungs: Unremarkable. No consolidation. Pleural spaces: Unremarkable. No pleural effusion. No pneumothorax. Heart/Mediastinum: Unremarkable. No cardiomegaly. Bones/joints: Unremarkable. IMPRESSION: No acute findings. Dictated and Authenticated by: Pan Stanford MD. Ordering:SOUTH Phillips MD
[2022-04-24 07:48] LABS: Bilirubin Negative (Negative); Blood Large (Negative); Clarity Cloudy (Clear); Glucose Negative (Negative); Ketones Trace mg/dL (Negative); Leukocyte Esterase Large (Negative); Nitrite Positive (Negative)
[2022-04-24 07:55] LABS: Bacteria Few HPF (Negative); C & S Indicated? Yes; Casts Negative LPF (Negative); Crystals Negative HPF (Negative); Epithelial Cells Rare HPF (Negative); Mucus Trace (Negative); RBC >50 HPF (0-2); WBC >50 HPF (0-5)
[2022-04-24] MEDS: Normal Saline Flush 10 ML SYR IVP (08:45)
--- NOTE | 2022-04-24 10:40 | HPE_ITS ---
Date of service: 04/24/22 Time of Service: 10:41 Assessment and Plan Assessment and plan (1) Sepsis: Status: Acute Assessment and plan: probably urinary source. continue Rocephin; check blood and urine cultures; check renal US. monitor urine output and response to iv fluids. He is currently hemodynamically stable and can be managed on med/surg for now. Professional time spent interviewing and examining patient, discussion of goals of care with hospital team (care management, nursing and consulting professionals) was 60 minutes. (2) Acute UTI: Status: Acute (3) Syncope: Status: Chronic Assessment and plan: probably related to urosepsis. Will monitor on telemetry; negative troponin therefore no evidence for ACS however could be rhythm related or BP related. Hold lisinopril and monitor HR/rhythm. give judicious iv fluids. (4) Bladder cancer: Status: Acute Assessment and plan: Dr. Morgan following. I have put him on consult and he can see him when Dr. Morgan gets back; elizabeth was removed two days ago and patient has been voiding freely. (5) Prostate cancer: Status: Chronic Assessment and plan: follow up w/ Dr. Morgan (6) Afib: Assessment and plan: continue metoprolol but hold his lisinopril in setting of azotemia and syncope; give judicious iv fluids, resume apixaban, monitor telemetry (7) CAD (coronary artery disease): Assessment and plan: patient has hx of CABG x 4 vessels in 01/02 @ [facility] in [place], [place] but had a normal stress MPI on 03/25/22 prior to his cysto/TUBR. He denies any CP or dyspnea and his admission EKG did not show any ischemia and he had two neg. troponin levels. Will monitor on telemetry d/t his afib and syncope (8) HTN (hypertension): (9) HLD (hyperlipidemia): (10) JOLENE (obstructive sleep apnea): History of Present Illness History of Present Illness Chief Complaint: fever, rigors, confusion Narrative: 76 yr male with prostate cancer who underwent cystoscopy and TUBR of bladder mass performed on 04/15. He had his elizabeth removed two days ago. During last night/early this morning around 2:30 am he got out of bed and has unwitnessed fall. He was found by his on the floor who called EMS. He was found to be confused and febrile (temp 39.1 C at the ED this morning). reported to the ED that he was a little weak and out of it yesterday. Evaluation in the ED included head CT and CXR both which showed no acute pathology. Labs were remarkable for WBC 13,000, mild azotemia (BUN 13, creati nine 1.5), negative troponin x two sets, normal lactate 1.4, and UA consistent w/ UTI w/ large blood, positive nitrites and large leukocyte esterase, >50 RBC/HPF, >50 WBC/HPF, and few bacteria, no casts. Blood cultures were obtained and he was begun on Rocephin 1 gm and given iv fluids and acetaminophen. Since admitted from the ER he is more coherent and feeling better. He is admitted for treatment of complicated UTI possible early sepsis and azotemia. Dr. Morgan is off today but I have texted him that his patient is being admitted. I do not feel the patient needs any surgical or procedural intervention. Of note patient does drink beer on regular basis but denies any alcoholic drinks since his surgery as he did not want this to thin his blood out and mess up my surgery. PFSH All Active Problems (Updated 04/24/22 @ 13:31 by Jose Gentile MD) Syncope (Chronic) Sepsis (Acute) Fall (Acute) Acute UTI (Acute) Bladder cancer (Acute) Prostate cancer (Chronic) Family history of prostate cancer (Acute) Hematuria (Acute) Medical History Actinic keratoses Afib Angina at rest Arthritis of both knees Bladder mass CAD (coronary artery disease) Chronic anticoagulation Heavy alcohol consumption Hematospermia HLD (hyperlipidemia) HTN (hypertension) Obesity JOLENE (obstructive sleep apnea) Prediabetes Shoulder impingement syndrome Torn meniscus Ulnar neuropathy Surgical History S/P CABG x 4 [facility] 12/20/15 Social History Smoking/Tobacco Use Status: Former Tobacco Use Quit Date: 10/20/61 Smoking risk assessment performed?: Yes Alcohol Intake: current Alcohol Intake frequency: 3 or more drinks per day Alcohol type: beer Drug use: Rarely Substance use type: marijuana Details: 6 pack/night Do you feel safe at home: Yes Do you feel safe in your relationship?: Yes Meds Allergies and Home Medications Allergies Allergy/AdvReac Type Severity Reaction Status Date / Time No Known Allergies Allergy Verified 04/24/22 05:59 Home Medications Medication Instructions Recorded Confirmed Type apixaban 5 mg tablet (Eliquis) 5 mg PO BID 09/05/21 04/24/22 History atorvastatin 40 mg tablet 40 mg PO QHS 09/05/21 04/24/22 History cholecalciferol (vitamin D3) 50 50 mcg PO DAILY 09/05/21 04/24/22 History mcg (2,000 unit) capsule lisinopril 10 mg tablet 10 mg PO DAILY 09/05/21 04/24/22 History metoprolol tartrate 50 mg tablet 50 mg PO BID 09/05/21 04/24/22 History ovibbhez-xzb-kmawo acid 300 1 tab PO DAILY 09/05/21 04/24/22 History mcg-lycopene 600 mcg-lutein 300 mcg tablet (Centrum Silver Men) omega-3 fatty acids 1,000 mg 1,000 mg PO DAILY 09/05/21 04/24/22 History capsule (Fish Oil Concentrate) saw palm 50 mg-pyg 20 mg-nettl 25 1 cap PO DAILY 09/05/21 04/15/22 History mg-pump 100 qf-uqvn-xk-Zn-Cu capsule (Prostate Control) triamcinolone acetonide 0.1 % 1 applic topical BID 09/05/21 04/15/22 History topical cream Exam Narrative Exam Narrative: Obese white male who is lying in bed in semisolid position he was sleeping with sonorous respirations but easily awakened. Denies any dyspnea or chest discomfort or abdominal discomfort. He confirmed the history that I had re viewed from the ER notes and from my discussion with Dr. Hector Polo. Patient indicated that he had his Elizabeth taken out 2 days ago and was feeling fine until last night when he began chilling having rigors and running a fever. He does not recall how he ended up on the floor. HEENT is unremarkable. His head is atraumatic no bruising of his face. Facial mimetic muscle movements normal extraocular motions intact speech is clear and coherent no dysarthria. Oropharynx noninjected Neck is supple nontender normal carotid pulses no bruits no JVD Lungs are clear to auscultation Skin is diaphoretic Heart is irregular irregular, slightly tachycardic Abdomen is soft nontender normal bowel sounds no organomegaly no bruits No CVA tenderness Extremities warm dry without cyanosis normal pedal pulses no calf tenderness no pretibial or ankle edema. Neuro exam grossly intact no focal motor or sensory deficits no focal cranial nerve deficits. Results Labs Result diagrams: 04/24/22 06:10 04/24/22 06:10 Labs: Laboratory Results - last 24 hr 04/24/22 04/24/22 04/24/22 06:10 06:10 06:10 WBC 13.48 H RBC 4.24 L Hgb 13.7 Hct 40.8 MCV 96 H MCH 32.3 MCHC 33.6 RDW 12.3 Plt Count 141 MPV 10.3 Immature Gran % 0.5 Neutrophils % 89.6 Lymphocytes % 1.9 Monocytes % 7.9 Eosinophils % 0.0 Basophils % 0.1 Nucleated RBC % 0.0 Absolute Neutrophils 12.08 H Absolute Lymphocytes 0.26 L Absolute Monocytes 1.06 H Absolute Eosinophils 0.00 Absolute Basophils 0.01 PT 13.2 H INR 1.3 H VBG Lactate Sodium 130 L Potassium 4.5 Chloride 97 L Carbon Dioxide 22.5 Anion Gap 10.5 BUN 22 H Creatinine 1.5 H Estimated GFR/1.73 m2 45.26 Glucose 152 H Calcium 8.9 Magnesium 1.7 L Total Bilirubin 2.8 H AST 32 ALT 27 Alkaline Phosphatase 81 Troponin I < 50 Total Protein 7.7 Albumin 3.6 Urine Color Urine Clarity Urine pH Ur Specific Ware Urine Protein Urine Ketones Urine Blood Urine Nitrite Urine Bilirubin Urine Urobilinogen Ur Leukocyte Esterase Urine RBC Urine WBC Ur Epithelial Cells Urine Crystals Urine Bacteria Urine Casts Urine Mucus Ur Culture Indicated? Urine Glucose COVID-19 Source SARS-CoV-2 (PCR) Influenza Type A (PCR) Influenza Type B (PCR) RSV (PCR) 04/24/22 04/24/22 04/24/22 06:24 06:32 07:42 WBC RBC Hgb Hct MCV MCH MCHC RDW Plt Count MPV Immature Gran % Neutrophils % Lymphocytes % Monocytes % Eosinophils % Basophils % Nucleated RBC % Absolute Neutrophils Absolute Lymphocytes Absolute Monocytes Absolute Eosinophils Absolute Basophils PT INR VBG Lactate 1.4 Sodium Potassium Chloride Carbon Dioxide Anion Gap BUN Creatinine Estimated GFR/1.73 m2 Glucose Calcium Magnesium Total Bilirubin AST ALT Alkaline Phosphatase Troponin I Total Protein Albumin Urine Color Red Urine Clarity Cloudy Urine pH 6.0 Ur Specific Ware 1.020 Urine Protein >=300 H Urine Ketones Trace H Urine Blood Large H Urine Nitrite Positive H Urine Bilirubin Negative Urine Urobilinogen 1.0 H Ur Leukocyte Esterase Large H Urine RBC >50 H Urine WBC >50 H Ur Epithelial Cells Rare Urine Crystals Negative Urine Bacteria Few Urine Casts Negative Urine Mucus Trace Ur Culture Indicated? Yes Urine Glucose Negative COVID-19 Source Nasopharynx SARS-CoV-2 (PCR) Negative Influenza Type A (PCR) Negative Influenza Type B (PCR) Negative RSV (PCR) Negative Last Vital Signs Temp 37.8 C H 04/24/22 09:48 Pulse 102 H 04/24/22 09:48 Resp 22 04/24/22 09:48 BP 106/68 04/24/22 09:48 Pulse Ox 94 04/24/22 09:48
[2022-04-24 11:04] LABS: Troponin I < 50 ng/L (<or=60)
[2022-04-24] MEDS: Lactated Ringers 1,000 ML 100 ML IV (11:51)
[2022-04-24] MEDS: Acetaminophen 325 MG TAB PO ×2 (13:51→23:01)
[2022-04-24 14:01] LABS: Lab Add On Test DONE
[2022-04-24 14:28] LABS: Procalcitonin 19.9 ng/mL
[2022-04-24] MEDS: Atorvastatin 40 MG TAB PO (21:49)
[2022-04-24] MEDS: Metoprolol 50 MG TAB PO (21:49)
[2022-04-25] VITALS (12 sets, daily range): BP systolic 102–150; BP diastolic 59–86; PULSE 63–93; RESP 17–22; TEMP 36.5–38.2; O2SAT 93–98
[2022-04-25 06:52] LABS: Abs Immature Grans 0.04 10^3/uL (0.0-0.06); Absolute Basophil Count 0.02 10^3/uL (0.0-0.2); Absolute Eosinophil Count 0.04 10^3/uL (0.0-0.7); Absolute Lymphocyte Count 0.55 10^3/uL (1.2-3.4); Absolute Monocyte Count 0.86 10^3/uL (0.1-0.8); Absolute Neutrophil Count 8.22 10^3/uL (1.2-6.7); Basophils % 0.2; Eosinophils % 0.4; HCT 36.4 % (40.0-50.0); HGB 11.9 g/dL (13.5-17.5); Immature Grans % 0.4; Lymphocytes % 5.7; MCH 32.1 pg (27.0-33.0); MCHC 32.7 % (32.0-36.0); MCV 98 fL (80-95); MPV 10.1 fL (8.0-11.0); Monocytes % 8.8; Neutrophils % 84.5; Platelet Count 114 10^3/uL (130-400); RBC 3.71 10^6/uL (4.36-5.78); RDW 12.5 % (11.8-14.1); RDW-SD 45.3 fL; WBC 9.73 10^3/uL (4.4-10.8)
[2022-04-25 07:00] LABS: Anion Gap 7.1 mmol/L (3-11); BUN 20 mg/dL (7-18); CO2 25.9 mmol/L (21.0-32.0); CREATININE 0.9 mg/dL (0.70-1.30); Calcium 8.6 mg/dL (8.5-10.1); Chloride 101 mmol/L (98-107); Glucose 109 mg/dL (74-106); Potassium 4.1 mmol/L (3.5-5.1); Sodium 134 mmol/L (136-145)
[2022-04-25] MEDS: cefTRIAXone 1 GM/50 ML BAG IVPB (08:01)
[2022-04-25] MEDS: Normal Saline Flush 10 ML SYR IVP (08:01)
[2022-04-25] MEDS: Metoprolol 50 MG TAB PO ×2 (08:02→19:42)
[2022-04-25] MEDS: Cholecalciferol (Vitamin D3) 1,000 UNIT TAB 2000 UNITS PO (08:02)
[2022-04-25] MEDS: Multivitamin w/Minerals TAB 1 TAB PO (08:02)
[2022-04-25] MEDS: Apixaban 5 MG TAB PO (08:02)
[2022-04-25] MEDS: Omega-3 Fatty Acids 1000 MG CAP PO (08:02)
[2022-04-25] MEDS: Acetaminophen 325 MG TAB PO ×2 (08:21→17:07)
--- NOTE | 2022-04-25 08:29 | INITIAL_ITS ---
- If Service Date Differs Date of service: 04/25/22 Time of Service: 08:29 Care Management Initial Assess REASON FOR HOSPITALIZATION:: Sepsis PAST MEDICAL HISTORY/PAST SURGICAL HISTORY:: Medical History . Actinic keratoses. Afib. Angina at rest. Arthritis of both knees. Bladder mass. CAD (coronary artery disease). Chronic anticoagulation. Heavy alcohol consumption. Hematospermia. HLD (hyperlipi demia). HTN (hypertension). Obesity. JOLENE (obstructive sleep apnea). Prediabetes. Shoulder impingement syndrome. Torn meniscus. Ulnar neuropathy. Surgical History . S/P CABG x 4. [facility] 12/20/15 [facility]. Cysto and TUBR of bladder mass 04/10 PREVIOUS FUNCTIONAL STATUS/SOCIAL/FAMILY SUPPORTS:: aLlo lives in [place], [place] with his Ijeoma. He has a son Parag araujo who lives in [place]. ADVANCE DIRECTIVES:: none on file Has patient been provided with info about the portal/API?: Yes Did the patient sign up for the portal?: No CODE STATUS:: Full Code INSURANCE COVERAGE / FINANCIAL ISSUES:: Medicare. BS PRIMARY CARE PHYSICIAN:: Kingsley Handy POTENTIAL DISCHARGE NEEDS:: follow up qwith Urology and PCP and plan of care PATIENT/FAMILY EDUCATION NEEDS:: Review discharge instructions, medications, activity, limitations, follow up plan and discuss Ask Me Three TRANSPORTATION:: via private vehicle with family PLAN:: Lalo will likely be discharged home with no new services. He will follow up with his surgeon, PCP and plan of care and transport with family.CM will support Lalo henrietta his discharge planning needs.
--- NOTE | 2022-04-25 12:21 | UCONE_ITS ---
Date of service: 04/25/22 Time of Service: 12:21 Assessment and Plan Assessment and plan (1) Acute UTI: Status: Acute (2) Sepsis: Status: Acute Assessment and plan: We can see urosepsis after a prostate biopsy, but normally the septic events occur shortly thereafter. His prostate biopsy was about 3 months ago, so I do not there is any association between the prostate biopsy and his septic episode Likewise, his bladder tumor was close to the left ureteral orifice. There is always a concern that these patients will develop hydronephrosis and needs some type of drainage procedure if there is infected urine trapped up in the kidney. This gentleman has no flank pain and his renal ultrasound shows no hydronephrosis A much more likely scenario is bacterial seeding that occurred when I removed his Dykes catheter on 04/23/2022. The catheter can become colonized with bacteria and any manipulation of the catheter (such as irrigation or catheter removal) can lead to an infection. Clinically, he is doing much better. Once we see his final culture and sensitivities, we should be able to discharge him with oral antibiotics. History of Present Illness History of Present Illness Chief Complaint: UTI with sepsis Narrative: Is a 76-year-old gentleman is well-known to our practice because of his history of an elevated PSA and bladder mass. Because of the PSA, he underwent ultrasound-guided biopsy of the prostate. We identified low risk prostate cancer and we had planned an active surveillance call. He is due for his next PSA level in 3 months. More recently, he underwent cystoscopy and transurethral resection of a papillary lesion at the left ureteral orifice. The surgical pathology demonstrated low-grade, noninvasive urothelial cell carcinoma. We left a Dykes catheter in place following the surgery. We removed the catheter on 04/23/2022. The patient presented to the emergency department about 24 hours later with fevers and chills. He had an elevated serum white count and his urine was suggestive of a urinary tract infection. He was admitted for IV antibiotics and hydration. He is currently on ceftriaxone pending his final urine and blood cultures. He is feeling much better compared to his admission. He has no flank pain. He has been able to void but feels like his stream is slow. He believes his stream is improving with time For the prostate biopsy, he was prophylaxed with a quinolone. For the transurethral resection of bladder tumor, he was prophylaxed with Ancef. Review of Systems Constitutional Constitutional: Reports chills and Reports fever(s) Cardiovascular Cardiovascular: Denies chest pain Respiratory Respiratory: Denies cough, Denies hemoptysis and Denies excessive phlegm production Gastrointestinal Gastrointestinal: Denies nausea and Denies vomiting PFSH All Active Problems (Updated 04/24/22 @ 13:31 by Jose Gentile MD) Syncope (Chronic) Sepsis (Acute) Fall (Acute) Acute UTI (Acute) Bladder cancer (Acute) Prostate cancer (Chronic) Family history of prostate cancer (Acute) Hematuria (Acute) Medical History Actinic keratoses Afib Angina at rest Arthritis of both knees Bladder mass CAD (coronary artery disease) Chronic anticoagulation Heavy alcohol consumption Hematospermia HLD (hyperlipidemia) HTN (hypertension) Obesity JOLENE (obstructive sleep apnea) Prediabetes Shoulder impingement syndrome Torn meniscus Ulnar neuropathy Surgical History S/P CABG x 4 [facility] 12/20/15 [facility] Social History Smoking/Tobacco Use Status: Former Tobacco Use Quit Date: 10/20/61 Smoking risk assessment performed?: Yes Alcohol Intake: current Alcohol Intake frequency: 3 or more drinks per day Alc ohol type: beer Drug use: Rarely Substance use type: marijuana Details: 6 pack/night Do you feel safe at home: Yes Do you feel safe in your relationship?: Yes Exam Narrative Exam Narrative: Comfortable sitting up at the bedside His vital signs are documented elsewhere His abdomen is soft. His bladder is not distended He is awake and alert His urine culture is growing gram-negative rods and his blood cultures are negative so far I reviewed his renal ultrasound on the PACS system. I do not see any evidence of hydronephrosis on either kidney. Results Last Vital Signs Temp 36.5 C 04/25/22 11:18 Pulse 63 04/25/22 11:18 Resp 20 04/25/22 11:18 BP 108/79 04/25/22 11:18 Pulse Ox 98 04/25/22 11:18 Labs Result diagrams: 04/25/22 06:15 04/25/22 06:15 Labs: Laboratory Results - last 24 hr 04/24/22 04/24/22 04/25/22 06:10 06:10 06:15 WBC RBC Hgb Hct MCV MCH MCHC RDW Plt Count MPV Immature Gran % Neutrophils % Lymphocytes % Monocytes % Eosinophils % Basophils % Nucleated RBC % Absolute Neutrophils Absolute Lymphocytes Absolute Monocytes Absolute Eosinophils Absolute Basophils Sodium 134 L Potassium 4.1 Chloride 101 Carbon Dioxide 25.9 Anion Gap 7.1 BUN 20 H Creatinine 0.9 Estimated GFR/1.73 m2 >= 60.00 Glucose 109 H Calcium 8.6 Procalcitonin 19.9 Add-On Test Request DONE 04/25/22 06:15 WBC 9.73 RBC 3.71 L Hgb 11.9 L Hct 36.4 L MCV 98 H MCH 32.1 MCHC 32.7 D RDW 12.5 Plt Count 114 L MPV 10.1 Immature Gran % 0.4 Neutrophils % 84.5 Lymphocytes % 5.7 Monocytes % 8.8 Eosinophils % 0.4 Basophils % 0.2 Nucleated RBC % 0.0 Absolute Neutrophils 8.22 H Absolute Lymphocytes 0.55 L Absolute Monocytes 0.86 H Absolute Eosinophils 0.04 Absolute Basophils 0.02 Sodium Potassium Chloride Carbon Dioxide Anion Gap BUN Creatinine Estimated GFR/1.73 m2 Glucose Calcium Procalcitonin Add-On Test Request
--- NOTE | 2022-04-25 12:31 | PDOC.CMIN ---
- If Service Date Differs Date of service: 04/25/22 Time of Service: 12:31 Care Management Initial Assess REASON FOR HOSPITALIZATION:: Urosepsis, complicated UTI, delirium, LEATHA. PAST MEDICAL HISTORY/PAST SURGICAL HISTORY:: All Active Problems: Syncope (Chronic), Sepsis (Acute), Fall (Acute), Acute UTI (Acute), Bladder cancer (Acute), Prostate cancer (Chronic), Family history of prostate cancer (Acute), and Hematuria (Acute). Medical History: Actinic keratoses, Afib, Angina at rest, Arthritis of both knees, Bladder mass, CAD (coronary artery disease), Chronic anticoagulation, Heavy alcohol consumption, Hematospermia, HLD (hyperlipidemia), HTN (hypertension), Obesity, JOLENE (obstructive sleep apnea), Prediabetes, Shoulder impingement syndrome, Torn meniscus, and Ulnar neuropathy. Surgical History: S/P CABG x 4 - [facility] 12/20/15 . PREVIOUS FUNCTIONAL STATUS/SOCIAL/FAMILY SUPPORTS:: Lalo lives in [place], [place] with his Ijeoma. He has two sons, Parag Fisher and Quincy, both of whom reside in [place]. Lalo also has a daughter but she from heart failure a couple of weeks ago. He reports her service is next week on May 04, 2022. 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 He now occupies his time by caring for his property and occasionally driving cars from one lot to another for [facility]. Lalo is independent with his ADLs at baseline. CURRENT FUNCTIONAL STATUS:: Lalo is sitting in a chair when comes to meet with him. He is alert, pleasant and easily engages in conversation. 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 ADVANCE DIRECTIVES:: None on file; offers an Advance Directives form and patient declines. Has patient been provided with info about the portal/API?: Yes Did the patient sign up for the portal?: No CODE STATUS:: Full Code INSURANCE COVERAGE / FINANCIAL ISSUES:: BCBS and Medicare. CURRENT HOME/COMMUNITY SERVICES/EQUIPMENT:: No home/community services. Lalo owns a walker rollator with a seat and brakes. PRIMARY CARE PHYSICIAN:: Kingsley Handy MD ([facility]). POTENTIAL DISCHARGE NEEDS:: Follow up appointments with PCP and Urology and plan of care. PATIENT/FAMILY EDUCATION NEEDS:: Review discharge instructions re medications, limitations, follow up plan and discuss Ask Me Three. ANTICIPATED BARRIERS TO DISCHARGE:: No anticipated barriers at this time. TRANSPORTATION:: Via private vehicle with family. PLAN:: Lalo will likely be discharged home with no new services. He will follow up with his PCP, Urologist, and plan of care as directed. He will be transported home by his via private vehicle when ready. CM will continue to support Lalo and his discharge planning needs.
--- NOTE | 2022-04-25 13:07 | PGE_ITS ---
Date of Service Date of service: 04/25/22 Time of Service: 13:07 Assessment and Plan Assessment and plan (1) Sepsis: Status: Acute Assessment and plan: Patient presented with a septic picture including borderline hypotension tachycardia febrile with a urinary tract infection. Blood cultures are showing no growth. Renal ultrasound showed no obstructive uropathy and no neph rolithiasis. Continue Rocephin 1 g IV daily. We will downgrade his antibiotics and convert to oral antibiotics once we have identification and sensitivity on urine culture. Professional time spent interviewing and examining patient, discussion of goals of care with hospital team (care management, nursing and consulting professionals) was 20 minutes. (2) Acute UTI: Status: Acute Assessment and plan: As above (3) Syncope: Status: Chronic Assessment and plan: probably related to urosepsis. Will monitor on telemetry; negative troponin therefore no evidence for ACS. Blood pressures remain on the lower end of normal therefore I will continue to withhold his lisinopril although his azotemia has resolved. (4) Bladder cancer: Status: Acute Assessment and plan: Patient still voiding some blood urine is looking pink discoloration and will continue to do so for about a week after his surgery. Dr. Morgan saw him earlier today and we will continue to follow him up onto the charge.. (5) Prostate cancer: Status: Chronic Assessment and plan: follow up w/ Dr. Morgan (6) Afib: Assessment and plan: I will discontinue his telemetry as his atrial fibrillation rate is controlled. Continue his metoprolol but continue to hold his lisinopril even though his azotemia is resolved. Blood pressures remain on the lower end of normal. Continue apixaban for stroke prevention (7) CAD (coronary artery disease): Assessment and plan: patient has hx of CABG x 4 vessels in 01/02 @ [facility] in [place], [place] but had a normal stress MPI on 03/25/22 prior to his cysto/TUBR. He denies any CP or dyspnea and his admission EKG did not show any ischemia and he had two neg. troponin levels. No ischemic pain negative troponins will discontinue telemetry at this point. (8) HTN (hypertension): Assessment and plan: Stable blood pressure although in the lower end of normal. Continue metoprolol for his A. fib rate control however we will continue to withhold his lisinopril. (9) HLD (hyperlipidemia): Assessment and plan: Continue atorvastatin (10) JOLENE (obstructive sleep apnea): Assessment and plan: Patient previously diagnosed with JOLENE but declines to wear CPAP as he was intolerant of this. Subjective Subjective Interval history since last seen: Patient is much more alert and oriented today. He is eating well no nausea vomiting denies any shortness of breath or chest pain. Denies any flank pain. Denies any suprapubic pain. Says that Dr. Morgan was just in a little bit earlier this morning and met with him. Patient is being treated for complicated urinary tract infection after cystoscopy and transurethral bladder resection of a bladder mass. Urine cultures growing a gram-negative leonel identification and speciation has not been identified. He is currently on ceftriaxone 1 g IV every 24 hours however he did have a low-grade temp this morning 38.2 WBCs are down to 9700. Blood cultures are showing no growth after 24 hours. We will continue the Rocephin until he has been afebrile for 24 hours and once we have final identification and sensitivity on his urinary tract infection we can switch him to oral antibiotics and discharge him home. Exam Narrative Exam Narrative: Obese white male sitting up in his chair he is alert and oriented per his place time circumstance in no discomfort. Lungs are clear to auscultation Chest is barrel chested Hearts irregular regular but controlled rate. (Review of his telemetry shows heart rates varied between 74 to 131 bpm. Higher rate with activity. Occasional PVCs) No CVA tenderness Abdomen obese soft nontender normal bowel sounds no suprapubic tenderness Objective Last Vital Signs Temp 36.5 C 04/25/22 11:18 Pulse 63 04/25/22 11:18 Resp 20 04/25/22 11:18 BP 108/79 04/25/22 11:18 Pulse Ox 98 04/25/22 11:18 Laboratory Results - last 24 hr 04/24/22 04/24/22 04/25/22 06:10 06:10 06:15 WBC RBC Hgb Hct MCV MCH MCHC RDW Plt Count MPV Immature Gran % Neutrophils % Lymphocytes % Monocytes % Eosinophils % Basophils % Nucleated RBC % Absolute Neutrophils Absolute Lymphocytes Absolute Monocytes Absolute Eosinophils Absolute Basophils Sodium 134 L Potassium 4.1 Chloride 101 Carbon Dioxide 25.9 Anion Gap 7.1 BUN 20 H Creatinine 0.9 Estimated GFR/1.73 m2 >= 60.00 Glucose 109 H Calcium 8.6 Procalcitonin 19.9 Add-On Test Request DONE 04/25/22 06:15 WBC 9.73 RBC 3.71 L Hgb 11.9 L Hct 36.4 L MCV 98 H MCH 32.1 MCHC 32.7 D RDW 12.5 Plt Count 114 L MPV 10.1 Immature Gran % 0.4 Neutrophils % 84.5 Lymphocytes % 5.7 Monocytes % 8.8 Eosinophils % 0.4 Basophils % 0.2 Nucleated RBC % 0.0 Absolute Neutrophils 8.22 H Absolute Lymphocytes 0.55 L Absolute Monocytes 0.86 H Absolute Eosinophils 0.04 Absolute Basophils 0.02 Sodium Potassium Chloride Carbon Dioxide Anion Gap BUN Creatinine Estimated GFR/1.73 m2 Glucose Calcium Procalcitonin Add-On Test Request
--- NOTE | 2022-04-25 13:50 | CHAPLAIN ---
Parag was up in the chair when I visited and his was with him. He was mostly interested in getting the volume of the tv turned down. The remote attached to the call carmen wasn't working so his was going to work on getting someone to help.
--- NOTE | 2022-04-25 16:42 | PHA.REVIEW ---
Pharmacy Admission Review - Admission Clinical Review (Last Reviewed 04/24/22 @ 13:21 by Jose Gentile MD) Sepsis (Acute) Fall (Acute) Acute UTI (Acute) Bladder cancer (Acute) No Known Allergies Allergy (Verified 04/24/22 05:59) Resuscitation Status Full Code Height 5 ft 10 in Weight 113.6 kg - Renal Dosing Renal Dosing: BUN 20 mg/dL (7-18) H 04/25/22 06:15 Creatinine 0.9 mg/dL (0.70-1.30) 04/25/22 06:15 Medications needing adjustments: Reviewed (Crcl ~85.3 mL/min using adjusted body weight. Current meds okay.) - Anticoagulation Anticoagulation: Hgb 11.9 g/dL (13.5-17.5) L 04/25/22 06:15 Hct 36.4 % (40.0-50.0) L 04/25/22 06:15 Plt Count 114 10^3/uL (130-400) L 04/25/22 06:15 INR 1.3 (0.9-1.1) H 04/24/22 06:10 Creatinine 0.9 mg/dL (0.70-1.30) 04/25/22 06:15 DVT Prophylaxis: N/A Therapeutic Anticoagulation: Reviewed Medications: Apixaban - Opiate Usage Evaluate Pain Scale/Pains Meds: N/A - Relevant Labs Sodium 134 mmol/L (136-145) L 04/25/22 06:15 Potassium 4.1 mmol/L (3.5-5.1) 04/25/22 06:15 Chloride 101 mmol/L (98-107) 04/25/22 06:15 Magnesium 1.7 mg/dL (1.8-2.4) L 04/24/22 06:10 Electrolytes, C-Reactive P, ESR: Reviewed (mag- 1.7 yesterday, replacement given) - DM Control DM Control: Glucose 109 mg/dL (74-106) H 04/25/22 06:15 Insulin Dosing: N/A (BG slightly elevated last two days. No DM noted in med history, previous A1c from 2018) - Heart Failure/RI Heart Failure/RI: Troponin I < 50 ng/L (<or=60) 04/24/22 10:20 EF%, LAMONTE's, B-Blockers, Diuretics: Reviewed - BP Control BP Control: Blood Pressure 130/86 Blood Pressure 108/79 Blood Pressure 150/80 If elevated: Reviewed (BP has been up and down some this admission, but mostly within normal limits) - Qtc Review If Elevated: N/A (QTc 435 on admission) - IV to PO Switch IV Medications: Reviewed - Home Meds Home Med List reviewed: Reviewed - Current meds Current Medication Order Review: Reviewed - Comments Comments/Follow Ups: Watch BP, mag, SCr, labs, for culture results, and for med changes. Antibiotic Activity - Pharmacy Antibiotic Review Pharmacy Antibiotic Activity: C/S review (BC no growth @24 hours, UC growing gram negative rods. Ceftriaxone ordered (day 2).)
[2022-04-25] MEDS: Atorvastatin 40 MG TAB PO (19:42)
[2022-04-26 03:10] VITALS: BP 128/75; PULSE 95; RESP 17; TEMP 38.1; O2SAT 92
[2022-04-26] MEDS: Acetaminophen 325 MG TAB PO ×2 (03:13→19:23)
[2022-04-26 06:55] LABS: Abs Immature Grans 0.02 10^3/uL (0.0-0.06); Absolute Basophil Count 0.03 10^3/uL (0.0-0.2); Absolute Eosinophil Count 0.22 10^3/uL (0.0-0.7); Absolute Lymphocyte Count 0.67 10^3/uL (1.2-3.4); Absolute Monocyte Count 0.79 10^3/uL (0.1-0.8); Absolute Neutrophil Count 4.53 10^3/uL (1.2-6.7); Basophils % 0.5; Eosinophils % 3.5; HGB 11.5 g/dL (13.5-17.5); Immature Grans % 0.3; Lymphocytes % 10.7; MCHC 34.8 % (32.0-36.0); MCV 95 fL (80-95); MPV 10.5 fL (8.0-11.0); Monocytes % 12.6; Neutrophils % 72.4; Platelet Count 117 10^3/uL (130-400); RBC 3.48 10^6/uL (4.36-5.78); RDW 12.4 % (11.8-14.1); RDW-SD 43.2 fL; WBC 6.26 10^3/uL (4.4-10.8)
[2022-04-26 07:18] LABS: Anion Gap 8.6 mmol/L (3-11); BUN 18 mg/dL (7-18); CO2 23.4 mmol/L (21.0-32.0); CREATININE 0.7 mg/dL (0.70-1.30); Calcium 8.4 mg/dL (8.5-10.1); Chloride 102 mmol/L (98-107); Glucose 104 mg/dL (74-106); Potassium 4.1 mmol/L (3.5-5.1); Sodium 134 mmol/L (136-145)
--- NOTE | 2022-04-26 07:26 | PGE_ITS ---
Date of Service Date of service: 04/26/22 Time of Service: 07:42 Assessment and Plan Assessment and plan (1) Sepsis: Status: Acute (2) Acute UTI: Status: Acute Assessment and plan: His cultures are still pending, but he is improving clinically. I will start him on tamsulosin to help with his urinary hesitancy. I do not believe he will need the medication long-term but it should help with his urine flow in the short run. Subjective Subjective Interval history since last seen: He feels well. He has some urinary hesitancy but his stream improves once the urination starts. His urine has been dark and his Eliquis has been di scontinued. Exam Narrative Exam Narrative: He does not appear toxic at this point His vital signs are documented elsewhere He is awake and alert The specific gram-negative organism has been identified yet on the urine culture, but one of the 2 blood cultures drawn on admission is also growing g yo-negative rods. Objective Last Vital Signs Temp 38.1 C H 04/26/22 03:10 Pulse 95 H 04/26/22 03:10 Resp 17 04/26/22 03:10 BP 128/75 04/26/22 03:10 Pulse Ox 92 04/26/22 03:10 Laboratory Results - last 24 hr 04/26/22 04/26/22 06:15 06:15 WBC 6.26 RBC 3.48 L Hgb 11.5 L Hct 33.0 L MCV 95 MCH 33.0 MCHC 34.8 D RDW 12.4 Plt Count 117 L MPV 10.5 Immature Gran % 0.3 Neutrophils % 72.4 Lymphocytes % 10.7 Monocytes % 12.6 Eosinophils % 3.5 Basophils % 0.5 Nucleated RBC % 0.0 Absolute Neutrophils 4.53 Absolute Lymphocytes 0.67 L Absolute Monocytes 0.79 Absolute Eosinophils 0.22 Absolute Basophils 0.03 Sodium 134 L Potassium 4.1 Chloride 102 Carbon Dioxide 23.4 Anion Gap 8.6 BUN 18 Creatinine 0.7 Estimated GFR/1.73 m2 >= 60.00 Glucose 104 Calcium 8.4 L
[2022-04-26 07:37] VITALS: BP 117/75; PULSE 80; RESP 18; TEMP 37.1; O2SAT 95
[2022-04-26] MEDS: cefTRIAXone 1 GM/50 ML BAG IVPB (07:38)
[2022-04-26] MEDS: Normal Saline Flush 10 ML SYR IVP ×2 (07:38→08:57)
[2022-04-26] MEDS: Normal Saline 500 ML 30 ML IVPB (07:38)
[2022-04-26] MEDS: Omega-3 Fatty Acids 1000 MG CAP PO (07:39)
[2022-04-26] MEDS: Cholecalciferol (Vitamin D3) 1,000 UNIT TAB 2000 UNITS PO (07:39)
[2022-04-26] MEDS: Metoprolol 50 MG TAB PO ×2 (07:39→19:19)
[2022-04-26] MEDS: Multivitamin w/Minerals TAB 1 TAB PO (07:39)
[2022-04-26] MEDS: Tamsulosin 0.4 MG CAPCR PO (08:57)
[2022-04-26 11:15] VITALS: BP 118/75; PULSE 83; RESP 19; TEMP 37.7; O2SAT 96
--- NOTE | 2022-04-26 12:16 | W.PM.PROGNOT ---
Date of Service Date of service: 04/26/22 Time of Service: 12:16 Assessment and Plan Assessment and plan (1) Sepsis: Status: Acute Assessment and plan: Patient presented with a septic picture including borderline hypotension tachycardia febrile with a urinary tract infection. Blood cultures are positive for gram-negative rods. Urine culture was positive for Morganella. Renal ultrasound showed no obstructive uropathy and no nephrolithiasis. Continue Rocephin 1 g IV daily. We will downgrade his antibiotics and convert to oral antibiotics once we have identification and sensitivity on urine culture and his repeat blood cultures have cleared any bacteremia. Professional time spent interviewing and examining patient, discussion of goals of care with hospital team (care management, nursing and consulting professionals) was 20 minutes. (2) Acute UTI: Status: Acute Assessment and plan: As above (3) Bladder cancer: Status: Acute Assessment and plan: Patient still voiding some blood urine is looking pink discoloration and will continue to do so for about a week after his surgery. Dr. Morgan saw him yesterday and again today. He started the patient on tamsulosin to help with his urinary urgency which patient seems to think that this helped him void this morning although would be unusual for tamsulosin to work this quickly. (4) Prostate cancer: Status: Chronic Assessment and plan: follow up w/ Dr. Morgan (5) Afib: Assessment and plan: A. fib rate seems controlled with his current dose of metoprolol. Telemetry was discontinued yesterday. He has had no symptoms of palpitations or chest pain. We will keep him off his apixaban for now due to recurrent hematuria. Per Dr. Morgan hematuria may continue for another week. (6) CAD (coronary artery disease): Assessment and plan: patient has hx of CABG x 4 vessels in 01/02 @ [facility] in [place], [place] but had a normal stress MPI on 03/25/22 prior to his cysto/TUBR. He denies any CP or dyspnea and his admission EKG did not show any ischemia and he had two neg. troponin levels. No ischemic pain negative troponins telemetry has been discontinued. (7) HTN (hypertension): Assessment and plan: Stable blood pressure although in the lower end of normal. Continue metoprolol for his A. fib rate control however we will continue to withhold his lisinopril. (8) HLD (hyperlipidemia): Assessment and plan: Continue atorvastatin (9) JOLENE (obstructive sleep apnea): Assessment and plan: Patient previously diagnosed with JOLENE but declines to wear CPAP as he was intolerant of this. Subjective Subjective Interval history since last seen: Patient continues to have hematuria. He felt some improvement in his voiding ability after getting Flomax. No symptoms of chest pain or dyspnea no abdominal pain nausea or vomiting. He is moving his bowels. Blood cultures still show gram-negative rods in his blood. Urine cultures growing Morganella which is sensitive to the ceftriaxone he is on. Repeat blood culture was were obtained this morning. I spoke with him and his and explained that he will need to remain hospitalized until we have negative blood cultures at which point we can put him on oral antibiotics. I anticipate he will be discharged home on ciprofloxacin and treated for 2 weeks. Exam Narrative Exam Narrative: Patient was seen in his room sitting up in a chair talking with his no acute distress. Lungs are clear to auscultation Heart irregularly irregular without murmur rub Abdomen is obese soft nontender normal bowel sounds No CVA tenderness No suprapubic tenderness. Objective Last Vital Signs Temp 37.7 C H 04/26/22 11:15 Pulse 83 04/26/22 11:15 Resp 19 04/26/22 11:15 BP 118/75 04/26/22 11:15 Pulse Ox 96 04/26/22 11:15 Laboratory Results - last 24 hr 04/26/22 04/26/22 06:15 06:15 WBC 6.26 RBC 3.48 L Hgb 11.5 L Hct 33.0 L MCV 95 MCH 33.0 MCHC 34.8 D RDW 12.4 Plt Count 117 L MPV 10.5 Immature Gran % 0.3 Neutrophils % 72.4 Lymphocytes % 10.7 Monocytes % 12.6 Eosinophils % 3.5 Basophils % 0.5 Nucleated RBC % 0.0 Absolute Neutrophils 4.53 Absolute Lymphocytes 0.67 L Absolute Monocytes 0.79 Absolute Eosinophils 0.22 Absolute Basophils 0.03 Sodium 134 L Potassium 4.1 Chloride 102 Carbon Dioxide 23.4 Anion Gap 8.6 BUN 18 Creatinine 0.7 Estimated GFR/1.73 m2 >= 60.00 Glucose 104 Calcium 8.4 L
--- NOTE | 2022-04-26 12:21 | CMPROGNOTE_ITS ---
- If Service Date Differs Date of service: 04/26/22 Time of Service: 12:21 Care Management Progress Note S/O: Parag was sitting up in a chair with his by his side. He stated that he is feeling great, and he is hopeful that he will be medically ready for discharge this weekend. Per report, MD is awaiting sensitivities in order to determine appropriate antibiotic course, and once his oral antibiotic regiment is identified, he will likely be ready for discharge. He is agreeable to this pl an. He reported that he is very independent and does not anticipate the need for services upon discharge. CM will continue to follow. A: Parag is a 76 year old male admitted to [facility] on 04/24/22 with urosepsis, UTI. P: Lalo will likely be discharged home with no new services. He will follow up with his PCP, Urologist, and plan of care as directed. He will be transported home by his via private vehicle when ready. CM will continue to support Lalo and his discharge planning needs.
[2022-04-26 14:47] VITALS: BP 148/91; PULSE 96; RESP 20; TEMP 37.7; O2SAT 96
[2022-04-26] MEDS: Atorvastatin 40 MG TAB PO (19:19)
[2022-04-26 19:23] VITALS: BP 154/86; PULSE 107; RESP 16; TEMP 37.5; O2SAT 93
[2022-04-27 01:33] VITALS: BP 114/64; PULSE 105; RESP 14; TEMP 36.1; O2SAT 95
[2022-04-27 07:12] VITALS: BP 129/75; PULSE 64; RESP 18; TEMP 36.4; O2SAT 95
[2022-04-27] MEDS: Cholecalciferol (Vitamin D3) 1,000 UNIT TAB 2000 UNITS PO (08:34)
[2022-04-27] MEDS: Metoprolol 50 MG TAB PO (08:34)
[2022-04-27] MEDS: Multivitamin w/Minerals TAB 1 TAB PO (08:34)
[2022-04-27] MEDS: Tamsulosin 0.4 MG CAPCR PO (08:34)
[2022-04-27] MEDS: Omega-3 Fatty Acids 1000 MG CAP PO (08:34)
[2022-04-27] MEDS: Normal Saline Flush 10 ML SYR IVP (08:35)
[2022-04-27] MEDS: cefTRIAXone 1 GM/50 ML BAG IVPB (08:35)
--- NOTE | 2022-04-27 09:45 | W.PM.DS.N ---
Date of service: 04/27/22 Time of Service: 09:45 DS: Diagnosis Discharge Diagnosis (1) Sepsis: Status: Resolved (2) Acute UTI: Status: Acute (3) Bladder cancer: Status: Acute (4) Prostate cancer: Status: Chronic (5) Afib: (6) CAD (coronary artery disease): (7) HTN (hypertension): (8) HLD (hyperlipidemia): (9) JOLENE (obstructive sleep apnea): Discharge Plan Disposition Patient Disposition: HOME Condition: Stable Discharge Details Reason For Visit: urosepsis, complicated UTI, delirium, LEATHA Admit Date/Time: 04/24/22 07:57 Admit Provider: Jose Gentile Attending Provider: Jose Gentile Primary Care Provider: Kingsley Handy [facility] Course Hospital Course: 76 yr male? with prostate cancer who underwent cystoscopy and TUBR of bladder mass performed on 04/15. He had his elizabeth removed two days prior to admission. 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 He was found by his on the floor who called EMS. He was found to be confused and febrile (temp 39.1 C at the ED this morning). reported to the ED that he was a little weak and out of it yesterday. Evaluation in the ED included head CT and CXR both which showed no acute pathology. Labs were remarkable for WBC 13,000, mild azotemia (BUN 13,? creatinine 1.5), negative troponin x two sets, normal lactate 1.4, and UA consistent w/ UTI w/ large blood, positive nitrites and large leukocyte esterase, >50 RBC/HPF, >50 WBC/HPF, and few bacteria, no casts. Blood cultures were obtained and he was begun on Rocephin 1 gm and given iv fluids and acetaminophen. Since admitted from the ER he is more coherent and feeling better. He is admitted for treatment of complicated UTI possible early sepsis and azotemia. Of note patient does drink beer on regular basis but denies any alcoholic drinks since his surgery as he did not want this to thin his blood out and mess up my surgery. Rocephin intiated. His WBC count was elevated, then normalized. His lisinopril was held initially d/t LEATHA with a creatinine of 1.6. With hydration the creatinine normalized. He was monitored on telemetry w/o any significant findings. Troponin levels negative. His urine and blood cultures grew Morganella MOrganii, sensitive to Rocephin. Repeat blood cultures were obtained to monitor for clearing. He was very adamant about leaving before the repeat cultures were finalized, but they were negative x 24 hours. He was discharged on Levaquin to complete a 14 day course of antibiotics. Addendum: following d/c his repeat blood cultures were negative x 48 hours. Follow up with DR Morgan per his recommendation. Follow up with PCP in 1-2 weeks. Home Meds and New Rx's Prescriptions: New polyethylene glycol 3350 17 gram Powder In Packet 17 g PO DAILY PRN PRN (Reason: Constipation) Qty: 0 0RF tamsulosin 0.4 mg Capsule 0.4 mg PO DAILY Qty: 30 0RF levofloxacin 750 mg tablet 750 mg PO DAILY Qty: 11 0RF Rx Instructions: Take first dose the morning of 04/28/22 Continued Prostate Control 03-33-04-100 mg capsule 1 cap PO DAILY Eliquis 5 mg tablet 5 mg PO BID atorvastatin 40 mg tablet 40 mg PO QHS metoprolol tartrate 50 mg tablet 50 mg PO BID lisinopril 10 mg tablet 10 mg PO DAILY triamcinolone acetonide 0.1 % cream 1 applic topical BID Centrum Silver Men 300-600-300 mcg tablet 1 tab PO DAILY cholecalciferol (vitamin D3) 50 mcg (2,000 unit) capsule 50 mcg PO DAILY omega-3 fatty acids [Fish Oil Concentrate] 1,000 mg capsule 1,000 mg PO DAILY Discharge Instructions Instructions: Bacteremia (DC) Stand Alone Forms: Nursing Discharge Form Referrals: Renaldo Morgan MD [ [facility] STAFF PHYSICIAN] - (Follow-up with Dr. Morgan as scheduled ) Kingsley Handy [Primary Care Provider] - (Follow-up with Dr. Handy in 1-2 weeks) Activity:: Activity as Tolerated Equipment/Supplies:: No Equipment Needed Diet:: Resume usual home diet Discharge Orders Discharge Orders: Discharge Order (Routine); Ordered 04/27/22 Ordered By: Favio Lopez Discharge Data Discharge Date/Time-TO BE ENTERED AT DEPARTURE: 04/27/22 11:02 DS: Summary Time Spent with Patient providing and/or coordinating discharge services: Greater than 30 minutes Status at Discharge Functional status at discharge: independent ambulation Overall status at discharge: patient is back to baseline Mental Status: mental status grossly normal Speech and Movement: speech and movement normal Mood: congruent mood Affect: normal affect Exam Narrative Exam Narrative: Gen: sitting in chair. NAD Lungs are clear to auscultation Heart irregularly irregular without murmur rub Abdomen is obese soft nontender normal bowel sounds No suprapubic tenderness. Psych: affect is normal. Grossly normal appearance and normal mentation. Psych Mental Status: mental status grossly normal Speech and Movement: speech and movement normal Mood: congruent mood Affect: normal affect DS: Data Vitals/I&O Vitals and I&O: Vital Signs Temperature 36.4 C L 04/27/22 07:12 Temperature Source Tympanic 04/27/22 07:12 Pulse 64 04/27/22 07:12 Pulse Rhythm Irregular 04/27/22 04:02 Pulse 90 04/24/22 08:56 Respiratory Rate 18 04/27/22 07:12 Respiratory Effort Non-Labored 04/27/22 04:02 Respiratory Depth Normal 04/27/22 04:02 Respiratory Pattern Normal 04/27/22 04:02 Blood Pressure 129/75 04/27/22 07:12 Blood Pressure Mean 82 04/24/22 08:45 Blood Pressure Position Supine 04/24/22 05:55 Pulse Oximetry 95 04/27/22 07:12 Oxygen Delivery Method Room Air 04/27/22 07:12 Oxygen Flow Rate 0 04/27/22 07:12 Pain Level 0 04/27/22 07:12 Comment 04/26/22 14:47 Intake & Output 04/26/22 04/26/22 04/27/22 11:59 23:59 11:59 Intake Total 545 / 785 240 / 785 Output Total 1100 / 1900 800 / 1900 1300 / 1300 Balance -555 / -1115 -560 / -1115 -1300 / -1300 Weight 114.7 kg 113.5 kg Intake: IV 65 / 65 Oral 480 / 720 240 / 720 Output: Urine 1100 / 1900 800 / 1900 1300 / 1300 Other: Urine Color Dark Red Dark Felicita Straw Urine Appearance Sediment Cloudy Hematuria Urine Odor None None Strong Stool Size Moderate Stool Characteristics Formed Brown Voiding Methods Toilet Toilet Toilet Data Completed and Pending Labs on day of discharge: 04/26/22 09:05 Blood Blood Culture - Pending 04/26/22 08:55 Blood Blood Culture - Pending Preliminary micro results at discharge 04/24/22 06:10 Blood Culture - Preliminary Blood Gram Negative Pawel 04/24/22 06:32 Blood Culture - Preliminary Blood Gram Negative Pawel 04/26/22 09:05 Blood Culture - Pending Blood 04/26/22 08:55 Blood Culture - Pending Blood PFSH All Active Problems (Updated 04/28/22 @ 00:06 by LEYLA HRADIN) Acute UTI (Acute) Bladder cancer (Acute) Prostate cancer (Chronic) Family history of prostate cancer (Acute) Hematuria (Acute) Medical History Actinic keratoses Afib Angina at rest Arthritis of both knees Bladder mass CAD (coronary artery disease) Chronic anticoagulation Heavy alcohol consumption Hematospermia HLD (hyperlipidemia) HTN (hypertension) Obesity JOLENE (obstructive sleep apnea) Prediabetes Shoulder impingement syndrome Torn meniscus Ulnar neuropathy Surgical History S/P CABG x 4 [facility] 12/20/15 [facility] Social History Smoking/Tobacco Use Status: Former Tobacco Use Quit Date: 10/20/61 Smoking risk assessment performed?: Yes Alcohol Intake: current Alcohol Intake frequency: 3 or more drinks per day Alcohol type: beer Drug use: Rarely Substance use type: marijuana Details: 6 pack/night Do you feel safe at home: Yes Do you feel safe in your relationship?: Yes
--- NOTE | 2022-04-27 13:33 | PDOC.CMDIS ---
- If Service Date Differs Date of service: 04/27/22 Time of Service: 13:33 LACE Index Scoring Tool - Questions: Length of Stay (in days): 3 Acuity (Admit via E.D.?): Yes Comorbidities: Any Tumor E.D. Visits: 1 - Answers: Total Score: 9 Risk of Readmission: Low Risk Care Management Discharge Reason for Hospitalization: Urosepsis, complicated UTI, delirium, LEATHA. Discharge Plan: Parag returned home today with no new services. His drove him home via private vehicle. He will follow up with his PCP and discharge plan of care. He is happy to be going home. Patient/Family Education Needs: Review discharge instructions and limitations, discussion of self care needs including ask me three.
== END 2022-04-27 11:02 | disposition home or self-care (01) | DRG 872 ==
LOC: ER 07:57 → MS 09:24
PROVIDERS: Emergency Medicine; Admitting Provider Internal Medicine; Emergency Provider Emergency Medicine; PCP Internal Medicine; Visit Provider Internal Medicine
DX: A41.59 Other Gram-negative sepsis (principal); N39.0 Urinary tract infection, site not specified; R55 Syncope and collapse; R53.1 Weakness; E86.0 Dehydration; C67.9 Malignant neoplasm of bladder, unspecified; C61 Malignant neoplasm of prostate; I48.91 Unspecified atrial fibrillation; E78.5 Hyperlipidemia, unspecified; I10 Essential (primary) hypertension; E66.9 Obesity, unspecified; G47.33 Obstructive sleep apnea (adult) (pediatric); R73.03 Prediabetes; B96.89 Other specified bacterial agents as the cause of diseases classified elsewhere; Z87.891 Personal history of nicotine dependence; W19.XXXA Unspecified fall, initial encounter; I25.10 Atherosclerotic heart disease of native coronary artery without angina pectoris; Z68.35 Body mass index [BMI] 35.0-35.9, adult; Z80.42 Family history of malignant neoplasm of prostate; Z79.01 Long term (current) use of anticoagulants; Z95.1 Presence of aortocoronary bypass graft
CPT/HCPCS: 36410; 36415; 76770; 80048; 80053; 84145; 87040; 87077; 87637; 93005; 96361; 96365; 96366; 96368; 99222; 99232; 99285; 70450; 71046; 72125; 81003; 81015; 83605; 83735; 84484; 85025; 85610; 87086; 87186; 93010; 99223; 99239; J0696

== ENCOUNTER → 2022-05-16 15:06 | Outpatient (BNVA) | payer MEDICARE, BC, SELFPAY | PROVIDERS: PCP Internal Medicine; Referring Provider Internal Medicine; Visit Provider Nurse Practitioner Gerontology | DX: C67.9 Malignant neoplasm of bladder, unspecified (principal); C61 Malignant neoplasm of prostate; R82.998 Other abnormal findings in urine | CPT/HCPCS: 51798; 81003; 99213 ==

== ENCOUNTER 2022-05-16 17:46 | Outpatient (REF) | payer MEDICARE, BC, SELFPAY | END 2022-05-16 17:47 | disposition home or self-care (01) | LOC: LBN 17:46 | PROVIDERS: PCP Internal Medicine; Visit Provider Nurse Practitioner Gerontology | DX: N39.0 Urinary tract infection, site not specified (principal) | CPT/HCPCS: 87086 ==

== ENCOUNTER 2022-07-24 02:49 | Outpatient (CLI) | payer MEDICARE, BC, SELFPAY ==
[2022-07-24 22:55] LABS: PSA, Diagnostic 6.5 ng/mL (<=6.5)
== END 2022-07-24 02:50 | disposition home or self-care (01) ==
LOC: LBO 02:49
PROVIDERS: PCP Internal Medicine; Visit Provider Urology
DX: C61 Malignant neoplasm of prostate (principal)
CPT/HCPCS: 36415; 84153

== ENCOUNTER → 2022-07-30 12:51 | Outpatient (BNVA) | payer MEDICARE, BC, SELFPAY | PROVIDERS: PCP Internal Medicine; Referring Provider Internal Medicine; Visit Provider Urology | DX: C68.9 Malignant neoplasm of urinary organ, unspecified (principal) | CPT/HCPCS: 52000; 81003 ==

== ENCOUNTER 2022-07-30 13:31 | Outpatient (REF) | payer MEDICARE, BC, SELFPAY ==
--- NOTE | 2022-07-30 13:00 | PAPNONF_PTH ---
PATIENT: Parag Cervantes LOC: [facility] U#:[id number] AGE/SX: 76/M ROOM: RE07/30/[address]: Renaldo Morgan MD : [id number] BED: DIS: 07/30/2022 SPEC #: [id number] RECD: 07/30/22 18:15 STATUS: GABRIELLEJeanine REQ #: [id number] DONTE: 07/30/22 13:[address]: Renaldo Morgan DEPT: [facility] Cytology RECD BY: Bela Hayes ENTERED: 07/30/22 18:16 SP TYPE: ELMER GARCIA DR: Kingsley Handy Tissues: 1 - BODY FLUID CYTO(SPUTUM/URINE)[facility] Procedures: BODY FLUID CYTO(URINE/SPUTUM) Comments: [id number] (TOTAL VOLUME = 45 ml) (45 ml URINE & 45 ml CYTOLYT ADDED)
== END 2022-07-30 13:32 | disposition home or self-care (01) ==
LOC: LBN 13:31
PROVIDERS: PCP Internal Medicine; Visit Provider Urology
DX: C61 Malignant neoplasm of prostate (principal)
CPT/HCPCS: 88104

== ENCOUNTER 2022-08-05 07:40 | Day surgery (SDC) | payer MEDICARE, BC, SELFPAY | END 2022-08-05 07:41 | disposition home or self-care (01) | LOC: SUR 07:41 | PROVIDERS: PCP Internal Medicine; Visit Provider Urology | DX: C67.9 Malignant neoplasm of bladder, unspecified (principal); Z53.9 Procedure and treatment not carried out, unspecified reason ==

== ENCOUNTER 2022-08-08 06:03 | Day surgery (SDC) | payer MEDICARE, BC, SELFPAY ==
[2022-08-08 06:15] VITALS: BP 152/89; PULSE 69; RESP 18; TEMP 36.4; O2SAT 99
[2022-08-08] MEDS: Lactated Ringers 1,000 ML 80 ML IV (06:45)
--- NOTE | 2022-08-08 06:48 | W.ANESPRE ---
General Info Date of Service Date Performed: 08/08/22 Height: 5 ft 10 in Weight: 115.8 kg Body Mass Index (BMI): 36.6 Surgical Procedure: Operation Date: 08/08/22 07:40 Proposed Procedure Side Surgeon p Cystoscopy with Bladder Biopsy, Fulgration, Instill Mitomycin Renaldo Morgan MD Meds Allergies and Home Medications Allergies Allergy/AdvReac Type Severity Reaction Status Date / Time No Known Allergies Allergy Verified 08/08/22 06:04 Home Medication Medication Instructions Recorded apixaban 5 mg tablet (Eliquis) 5 mg PO BID 09/05/21 atorvastatin 40 mg tablet 40 mg PO QHS 09/05/21 cholecalciferol (vitamin D3) 50 50 mcg PO DAILY 09/05/21 mcg (2,000 unit) capsule lisinopril 10 mg tablet 10 mg PO DAILY 09/05/21 metoprolol tartrate 50 mg tablet 50 mg PO BID 09/05/21 swtxpjvh-fcf-ksdjs acid 300 1 tab PO DAILY 09/05/21 mcg-lycopene 600 mcg-lutein 300 mcg tablet (Centrum Silver Men) omega-3 fatty acids 1,000 mg 1,000 mg PO DAILY 09/05/21 capsule (Fish Oil Concentrate) saw palm 50 mg-pyg 20 mg-nettl 25 1 cap PO DAILY 09/05/21 mg-pump 100 tm-akej-hv-Zn-Cu capsule (Prostate Control) triamcinolone acetonide 0.1 % 1 applic topical BID 09/05/21 topical cream polyethylene glycol 3350 17 gram 17 g PO DAILY PRN PRN Constipation 04/27/22 oral powder packet #0 ea tamsulosin 0.4 mg capsule 0.4 mg PO DAILY #90 caps 05/16/22 Current Visit Medications: Current Medications Generic Name Dose Route Start Last Admin Trade Name Freq PRN Reason Stop Dose Admin Mitomycin 40 mg/ Sodium 0 mg 08/08/22 06:00 Chloride 40 ml BLADIN 08/08/22 16:00 ONCE LAURA Ringer's Solution 1,000 mls @ 80 mls/hr 08/08/22 06:00 08/08/22 06:45 IV 09/06/22 23:59 80 mls/hr INFUSION LAURA Administration Cefazolin Sodium/Dextrose 2 gm in 50 mls @ 100 mls/hr 08/08/22 06:00 Ancef Duplex IVPB 08/08/22 16:00 PREOP LAURA IV Miscellaneous Supplies 1 each 08/08/22 06:00 Iv Access IV 09/06/22 23:59 DIRECTED LAURA Sodium Chloride 0 ml 08/08/22 06:00 Normal Saline Flush 10 Ml Syr IV 09/06/22 23:59 PRN PRN Sodium Chloride 0 ml 08/08/22 06:00 Normal Saline 10 Ml Vial IJ 09/06/22 23:59 DIRECTED PRN Sterile Water 0 ml 08/08/22 06:00 Water,Injection,Sterile 10 Ml Vial IJ 09/06/22 23:59 DIRECTED PRN PFSH Active Problems Active Problems: Problem Status Onset Code Urothelial carcinoma C68.9 Acute UTI N39.0 Family history of prostate cancer Z80.42 Hematuria R31.9 Medical History Medical History Actinic keratoses Afib Angina at rest Arthritis of both knees Bladder mass CAD (coronary artery disease) Chronic anticoagulation Heavy alcohol consumption Hematospermia HLD (hyperlipidemia) HTN (hypertension) Obesity JOLENE (obstructive sleep apnea) Prediabetes Shoulder impingement syndrome Torn meniscus Ulnar neuropathy Surgical History Surgical History S/P CABG x 4 [facility] 12/20/15 RH Tobacco Smoking/Tobacco Use Status: Former Tobacco Use Alcohol Alcohol Intake: current Alcohol intake frequency: 3 or more drinks per day Alcohol type: beer Substance Use Substance use: Rarely Substance use type: marijuana Details: 6 pack/night Vital Signs and Lab Results Vital Signs Most Recent Vital Signs in EMR: Most Recent Vital Signs Temp Pulse Resp BP Pulse Ox 36.4 C L 69 18 152/89 H 99 08/08/22 06:15 08/08/22 06:15 08/08/22 06:15 08/08/22 06:15 08/08/22 06:15 Lab Results Blood Type / Crossmatch: No Data to Display Complete Blood Count: No Data to Display Complete Metabolic Panel: No Data to Display Liver Function Panel: No Data to Display Coagulation Panel: No Data to Display Cardiac Panel: No Data to Display Arterial Blood Gas: No Data to Display Venous Blood Gas: No Data to Display Pancreas Panel: No Data to Display Thyroid Panel: No Data to Display Infectious Disease: No Data to Display Blood Cultures: No Data to Display Toxicology Panel: No Data to Display Imaging and Studies Imaging and Studies Study information below may be from another EMR and interpreted by another provider. Please see original notes in EMR for more complete details. EKG Summary: Conclusion Atrial fibrillation...V-rate 58- 93, irreg A-activity Borderline low voltage, extremity leads...all extremity leads <0.6mV PVC Stress Test Summary: Stress ECG Conclusion 1. Resting electrocardiogram showed atrial fibrillation 2. Patient exercised on the Del protocol and completed a workload of 4.64 METS, limited by fatigue 3. Accelerated heart rate response to exercise. The patient achieved greater than 100% of predicted heart rate for age 4. There was no electrocardiographic evidence of myocardial ischemia 5. Atrial fibrillation was present throughout, with premature ventricular contractions versus aberrancy 6. See MPI report Hunt Treadmill Score is 1.7 which is Moderate risk. Echocardiogram Summary: Conclusion Normal left ventricular wall thickness and chamber size. Estimated ejection fraction is 55%. No wall motion abnormalities are identified Normal right ventricular size and systolic function The left atrium is moderately dilated. The right atrium is borderline dilated Mildly sclerotic trileaflet aortic valve without stenosis or regurgitation Mild mitral annular calcification. Mild mitral regurgitation Normal tricuspid valve with mild regurgitation. Estimated right ventricular systolic pressure is 30 mmHg Mildly dilated ascending aorta measuring 3.76 cm Anesthesia Assessment and Plan Anesthesia History Personal History: No History of Anesthesia Complications Family History: No Family History of Anesthesia Complications Exercise Tolerance Exercise Tolerance: Metabolic Equivalents>4 Pertinent Negatives Pertinent Negatives: No Symptoms of GERD Cardiac & Pulmonary Exam Cardiac Exam: Normal S1/S2 Heart Sounds Pulmonary Exam: Clear Bilateral Breath Sounds Implantable Cardiac Device Does patient have a Pacemaker or an ICD?: No Airway Exam Known Difficult Airway: No Mallampati Class: 3 Mouth Opening: Normal (> 3cm) Thyromental Distance: Greater than 3 cm Neck Range of Motion: Full ROM Neck Circumference: Normal Teeth Condition: Normal Dentition ASA Classification ASA Score: ASA 3 Emergency Case?: No NPO Status NPO Status: NPO Clears >2 hours, Solids >8 hours Anesthesia Plan Resuscitation Status: Full Code Anesthesia Technique: General Anesthesia Airway Planned: Natural Airway Monitors Used: Standard Monitors
--- NOTE | 2022-08-08 06:49 | HPE_ITS ---
Date of service: 08/08/22 Time of Service: 06:49 Assessment and Plan Assessment and plan (1) Urothelial carcinoma: Status: Acute Assessment and plan: For cystoscopy, TURBT and instillation of Mitomycin C into bladder History of Present Illness History of Present Illness Chief Complaint: Bladder cancer Narrative: This is a 76-year-old gentleman who has a history of low-grade, noninvasive urothelial cell carcinoma of the bladder.? He was diagnosed in March 2022.? On surveillance cystoscopy, a small papillary lesion was identified on the floor of the bladder. He presents for TURBT and instillation of Mitomycin C. He also has a history of an elevated PSA.? He underwent ultrasound-guided biopsy of the prostate.? 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 We have been monitoring him with active surveillance.? His PSA was not in 9.2 ng/mL at the time of his diagnosis.? The PSA has since come back down to 6.5 ng/mL. Review of Systems Narrative: No fevers or chills No vision change or dysphasia No diabetes or thyroid dysfunction Chronically short of breath. No cough or hemoptysis Hx atrial fibrillation. No chest pain No nausea, vomiting, hepatitis, ulcers, jaundice No seizures, strokes or peripheral neuropathy No bleeding disorders or anemia No gout PFSH All Active Problems Urothelial carcinoma (Acute) Acute UTI (Acute) Family history of prostate cancer (Acute) Hematuria (Acute) Medical History Actinic keratoses Afib Angina at rest Arthritis of both knees Bladder mass CAD (coronary artery disease) Chronic anticoagulation Heavy alcohol consumption Hematospermia HLD (hyperlipidemia) HTN (hypertension) Obesity JOLENE (obstructive sleep apnea) Prediabetes Shoulder impingement syndrome Torn meniscus Ulnar neuropathy Surgical History S/P CABG x 4 [facility] 12/20/15 Social History Smoking/Tobacco Use Status: Former Tobacco Use Quit Date: 10/20/61 Smoking risk assessment performed?: Yes Alcohol Intake: current Alcohol Intake frequency: 3 or more drinks per day Alcohol type: beer Drug use: Rarely Substance use type: marijuana Details: 6 pack/night Do you feel safe at home: Yes Do you feel safe in your relationship?: Yes Meds Allergies and Home Medications Allergies Allergy/AdvReac Type Severity Reaction Status Date / Time No Known Allergies Allergy Verified 08/08/22 06:04 Home Medications Medication Instructions Recorded Confirmed Type apixaban 5 mg tablet (Eliquis) 5 mg PO BID 09/05/21 08/07/22 History atorvastatin 40 mg tablet 40 mg PO QHS 09/05/21 08/08/22 History cholecalciferol (vitamin D3) 50 50 mcg PO DAILY 09/05/21 08/08/22 History mcg (2,000 unit) capsule lisinopril 10 mg tablet 10 mg PO DAILY 09/05/21 08/08/22 History metoprolol tartrate 50 mg tablet 50 mg PO BID 09/05/21 08/08/22 History cngdftdd-ouw-vhjsr acid 300 1 tab PO DAILY 09/05/21 08/08/22 History mcg-lycopene 600 mcg-lutein 300 mcg tablet (Centrum Silver Men) omega-3 fatty acids 1,000 mg 1,000 mg PO DAILY 09/05/21 08/08/22 History capsule (Fish Oil Concentrate) saw palm 50 mg-pyg 20 mg-nettl 25 1 cap PO DAILY 09/05/21 08/08/22 History mg-pump 100 jx-gfzm-xa-Zn-Cu capsule (Prostate Control) triamcinolone acetonide 0.1 % 1 applic topical BID 09/05/21 08/08/22 History topical cream polyethylene glycol 3350 17 gram 17 g PO DAILY PRN PRN Constipation 04/27/22 08/07/22 Rx oral powder packet #0 ea tamsulosin 0.4 mg capsule 0.4 mg PO DAILY #90 caps 05/16/22 08/08/22 Rx Exam Const General: cooperative and comfortable Neck Neck: supple Resp Effort & Inspection: normal respiratory effort Auscultation: clear to auscultation bilaterally Cardio Rate: regular rate Rhythm: regular rhythm GI Palpation: soft and no masses Neuro General: patient alert, patient awake and patient oriented x3 Results Last Vital Signs Temp 36.4 C L 08/08/22 06:15 Pulse 69 08/08/22 06:15 Resp 18 08/08/22 06:15 BP 152/89 H 08/08/22 06:15 Pulse Ox 99 08/08/22 06:15
[2022-08-08 06:51] VITALS: BMI 36.6
[2022-08-08] MEDS: ceFAZolin 2 GM/50 ML BAG IVPB (07:59)
--- NOTE | 2022-08-08 08:20 | BLADDER_PTH ---
PATIENT: Parag Cervantes LOC: [facility] U#:[id number] AGE/SX: 77/M ROOM: RE08/08/[address]: Renaldo Morgan MD : 1945 BED: DIS: 08/08/2022 SPEC #: [id number] RECD: 08/08/22 12:42 STATUS: CRIS REQ #: [id number] DONTE: 08/08/22 08:[address]: Renaldo Morgan DEPT: Surgical Specimen RECD BY: Bela Hayes ENTERED: 08/08/22 12:42 SP TYPE: Bladder OTHR DR: Kingsley Handy Tissues: 1 - BLADDER BIOPSY Procedures: GROSS AND MICRO LEVEL 4 Comments: [id number]
[2022-08-08] MEDS: mitoMYcin 40 MG, Normal Saline 40 ML BLADIN (08:21)
--- NOTE | 2022-08-08 08:26 | PDOC.DSDIS_ITS ---
Discharge Plan Disposition Patient Disposition: HOME Condition: Good Discharge Details Reason For Visit: bladder cancer Attending Provider: Renaldo Morgan Primary Care Provider: Kingsley Handy Jeremiah Meds and New Rx's Prescriptions: No Action tamsulosin 0.4 mg capsule 0.4 mg PO DAILY Qty: 90 0RF Prostate Control 16-02-73-100 mg capsule 1 cap PO DAILY Eliquis 5 mg tablet 5 mg PO BID atorvastatin 40 mg tablet 40 mg PO QHS metoprolol tartrate 50 mg tablet 50 mg PO BID lisinopril 10 mg tablet 10 mg PO DAILY triamcinolone acetonide 0.1 % cream 1 applic topical BID Centrum Silver Men 300-600-300 mcg tablet 1 tab PO DAILY cholecalciferol (vitamin D3) 50 mcg (2,000 unit) capsule 50 mcg PO DAILY omega-3 fatty acids [Fish Oil Concentrate] 1,000 mg capsule 1,000 mg PO DAILY polyethylene glycol 3350 17 gram Powder In Packet 17 g PO DAILY PRN PRN (Reason: Constipation) Qty: 0 0RF Discharge Instructions Additional Instructions: OK to restart Eliquis Followup 1 to 2 weeks for pathology report Leave catheter clamped with Mitomycin C in place for 1 to 2 hours - then unclamp, drain bladder and remove catheter Unclamp and drain bladder sooner if pt experiencing significant bladder pain Activity:: Activity as Tolerated Shower/Bathe:: 24 hours Diet:: As Tolerated Discharge Orders Discharge Orders: Discharge Order (Routine); Ordered 08/08/22 Ordered By: Renaldo Mogran DS: Diagnosis Discharge Diagnosis (1) Urothelial carcinoma: Status: Acute
--- NOTE | 2022-08-08 08:31 | ROE_ITS ---
Date of service: 08/08/22 Time of Service: 08:31 Operative Note Operative Note DATE OF PROCEDURE: 08/08/22 PRE-OP DIAGNOSIS: Bladder cancer POST-OP DIAGNOSIS: same PROCEDURE: Cystoscopy, bladder biopsy, fulguration of bladder tumor, instillation of Mitomycin-C into the bladder SURGEON: Renaldo Morgan ANESTHESIA TYPE: General:No Airway Refer to Anesthesia Record ESTIMATED BLOOD LOSS: 5 PATHOLOGY: other (bladder biopsy) Patient was transported to: same day Patient's condition: stable Implants: 16 turkish elizabeth catheter with 10 cc sterile water in balloon - clamped with M itomycin C 40 mg in 40 mL solution instilled Indications: This is a 77-year-old gentleman who has a history of low-grade, noninvasive urothelial cell carcinoma of the bladder. On a recent surveillance cystoscopy, he had a small recurrence. He presents for biopsy, fulguration and instillation of chemotherapy into the bladder Findings: small papillary tumor on posterior bladder wall Procedure Description: The patient was brought to the operating room on 08/07/2022. He was given a dose of preoperative IV antibiotics. After successful induction of general anesthesia without intubation, he was placed in the dorsal lithotomy position. His genitalia was prepped and draped. 2% Xylocaine jelly was instilled into the urethra to act as a local anesthetic. A 22 Persian rigid cystoscope was passed through the urethra into the bladder. Urethra and bladder were inspected with the 30 degree lens. The pendulous, bulbar and membranous urethra was all appeared normal with no strictures. The prostatic urethra showed lateral lobe enlargement but no significant median lobe. The bladder neck was entered and the bladder mucosa was inspected. Both ureteral orifices appeared normal with no blood coming from either side. Posterior to the trigone, a small less than 2 cm papillary lesion was visualized. No additional papillary or nodular lesions were seen throughout the remainder of the bladder. There was a right sided bladder diverticulum with no mucosal abnormalities within the lumen of the diverticulum. The visible bladder tumor was biopsied with cold cup biopsy forceps. The biopsy was sent to pathology for permanent section. The biopsy site was then cauterized with bipolar cautery. The cystoscope was withdrawn. A 16 Persian Elizabeth catheter was then passed through the urethra into the bladder. The catheter balloon was inflated with 10 cc of sterile water. The bladder was drained. A solution containing 40 mg of Mitomycin-C mixed in 40 mL of saline was then instilled into the bladder through the catheter. The catheter was cl amped. We will plan on leaving the medication instilled in the bladder for 1 to 2 hours postop before draining the bladder and removing the catheter. The patient tolerated this procedure with no complications. He was taken back to the day surgery unit in stable condition.
[2022-08-08 08:35] VITALS: BP 133/82; PULSE 61; RESP 18; TEMP 36.4; O2SAT 96
[2022-08-08 09:10] VITALS: BP 156/87; PULSE 59; RESP 16; TEMP 36.4; O2SAT 95
--- NOTE | 2022-08-08 09:10 | W.ANESPOSTOP ---
Postoperative Evaluation Date, Time and Location Date Performed: 08/08/22 Time Performed: 09:10 Patient Location: Day Surgery Unit Vital Signs Most Recent Imported Vital Signs: Most Recent Vital Signs Temp Pulse Resp BP Pulse Ox 36.4 C L 61 18 133/82 96 08/08/22 08:35 08/08/22 08:35 08/08/22 08:35 08/08/22 08:35 08/08/22 08:35 Pain Score Most Recent Pain Score: Most Recent Pain Score Pain Level 0 08/08/22 08:35 Assessment Mental Status: Awake (Alert & Oriented to Patient Baseline) Airway and Respiratory Function: Patent airway with normal (patient baseline) respiratory exam Cardiovascular Function: Hemodynamically Stable Hydration Status: Adequately Hydrated Nausea & Vomiting: No Nausea or Vomiting Pain: Pt. Denies Any Pain Peripheral Nerve Block: Patient did not receive a nerve block
[2022-08-08 10:20] VITALS: BP 138/80; PULSE 66; RESP 18; TEMP 36.4; O2SAT 96
== END 2022-08-08 11:55 | disposition home or self-care (01) ==
PROVIDERS: PCP Internal Medicine; Visit Provider Urology
PROC: 0TBB8ZX Excision of Bladder, Via Natural or Artificial Opening Endoscopic, Diagnostic (ICD-10-PCS; CPT 52204; principal; 2022-08-08 07:30)
DX: C67.0 Malignant neoplasm of trigone of bladder (principal); R73.03 Prediabetes; I48.91 Unspecified atrial fibrillation; I25.10 Atherosclerotic heart disease of native coronary artery without angina pectoris
CPT/HCPCS: 52234; 51720; 88305; J0690; J2704; J9280

== ENCOUNTER 2022-08-12 12:30 | Day surgery (SDC) | payer MEDICARE, BC, SELFPAY ==
[2022-08-12] VITALS (7 sets, daily range): BP systolic 83–145; BP diastolic 47–97; PULSE 55–74; RESP 13–18; TEMP 36–36.6; O2SAT 92–96; BMI 37.3
--- NOTE | 2022-08-12 13:00 | W.PM.HP.N ---
Date of service: 08/12/22 Time of Service: 13:01 Assessment and Plan Assessment and plan (1) Clot retention of urine: Status: Acute Assessment and plan: We will plan to do a cystoscopy and clot evacuation. History of Present Illness History of Present Illness Chief Complaint: Clot Retention Narrative: 77-year-old gentleman who has a history of urothelial cell carcinoma of the bladder. He underwent cystoscopy, bladder biopsy, fulguration of the biopsy site and instillation of Mitomycin-C into the bladder late last week. He is on anticoagulation chronically and he was instructed to restart the anticoagulants within 24 hours. He presented to the office today with gross hematuria, clots and difficulty voiding. Review of Systems Narrative: No fevers or chills No vision change or dysphasia No diabetes or thyroid dysfunction Chronically short of breath. No hemoptysis Hx atrial fibrillation. No chest pain No nausea, vomiting, hepatitis, ulcers, jaundice, No seizures, strokes or peripheral neuropathy On Eliquis. No anemia No gout PFSH All Active Problems (Updated 08/12/22 @ 13:03 by Renaldo Morgan MD) Clot retention of urine (Acute) Hematuria (Acute) Family history of prostate cancer (Acute) Acute UTI (Acute) Urothelial carcinoma (Acute) Medical History (Updated 08/12/22 @ 13:03 by Renaldo Morgan MD) Actinic keratoses Afib Angina at rest Arthritis of both knees Bladder mass CAD (coronary artery disease) Chronic anticoagulation Heavy alcohol consumption Hematospermia HLD (hyperlipidemia) HTN (hypertension) Obesity JOLENE (obstructive sleep apnea) Prediabetes Shoulder impingement syndrome Torn meniscus Ulnar neuropathy Surgical History (Updated 08/12/22 @ 12:52 by Flower Garces RN) History of appendectomy S/P CABG x 4 [facility] 12/20/15 RH Status post cystoscopy bladder cystoscopy Social History Smoking/Tobacco Use Status: Former Tobacco Use Quit Date: 10/20/61 Smoking risk assessment performed?: Yes Alcohol Intake: current Alcohol Intake frequency: 3 or more drinks per day Alcohol type: beer Drug use: Rarely Substance use type: marijuana Details: 6 pack/night Do you feel safe at home: Yes Do you feel safe in your relationship?: Yes Meds Allergies and Home Medications Allergies Allergy/AdvReac Type Severity Reaction Status Date / Time No Known Allergies Allergy Verified 08/08/22 06:04 Home Medications Medication Instructions Recorded Confirmed Type apixaban 5 mg tablet (Eliquis) 5 mg PO BID 09/05/21 08/12/22 History atorvastatin 40 mg tablet 40 mg PO QHS 09/05/21 08/12/22 History cholecalciferol (vitamin D3) 50 50 mcg PO DAILY 09/05/21 08/12/22 History mcg (2,000 unit) capsule lisinopril 10 mg tablet 10 mg PO DAILY 09/05/21 08/12/22 History metoprolol tartrate 50 mg tablet 50 mg PO BID 09/05/21 08/12/22 History leojjims-ccp-sipdp acid 300 1 tab PO DAILY 09/05/21 08/12/22 History mcg-lycopene 600 mcg-lutein 300 mcg tablet (Centrum Silver Men) omega-3 fatty acids 1,000 mg 1,000 mg PO DAILY 09/05/21 08/12/22 History capsule (Fish Oil Concentrate) saw palm 50 mg-pyg 20 mg-nettl 25 1 cap PO DAILY 09/05/21 08/12/22 History mg-pump 100 kt-cbbq-pf-Zn-Cu capsule (Prostate Control) triamcinolone acetonide 0.1 % 1 applic topical BID 09/05/21 08/12/22 History topical cream polyethylene glycol 3350 17 gram 17 g PO DAILY PRN PRN Constipation 04/27/22 08/12/22 Rx oral powder packet #0 ea tamsulosin 0.4 mg capsule 0.4 mg PO DAILY #90 caps 05/16/22 08/12/22 Rx Exam Const General: cooperative and comfortable Neck Neck: supple Resp Effort & Inspection: normal respiratory effort Auscultation: clear to auscultation bilaterally Cardio Rate: abnormal rate Rhythm: abnormal rhythm GI Inspection: normal to inspection Palpation: soft Neuro General: patient alert, patient awake and patient oriented x3
[2022-08-12] MEDS: Lactated Ringers 1,000 ML 80 ML IV (13:25)
--- NOTE | 2022-08-12 13:26 | W.ANESPRE ---
General Info Date of Service Date Performed: 08/12/22 Height: 5 ft 9 in Weight: 114.532 kg Body Mass Index (BMI): 37.3 Surgical Procedure: Operation Date: 08/12/22 14:10 Proposed Procedure Side Surgeon p Cystoscopy w/ Clot Evacuation, Possible Fulgeration Renaldo Morgan MD Meds Allergies and Home Medications Allergies Allergy/AdvReac Type Severity Reaction Status Date / Time No Known Allergies Allergy Verified 08/08/22 06:04 Home Medication Medication Instructions Recorded apixaban 5 mg tablet (Eliquis) 5 mg PO BID 09/05/21 atorvastatin 40 mg tablet 40 mg PO QHS 09/05/21 cholecalciferol (vitamin D3) 50 50 mcg PO DAILY 09/05/21 mcg (2,000 unit) capsule lisinopril 10 mg tablet 10 mg PO DAILY 09/05/21 metoprolol tartrate 50 mg tablet 50 mg PO BID 09/05/21 xtqopnhy-flc-rszeg acid 300 1 tab PO DAILY 09/05/21 mcg-lycopene 600 mcg-lutein 300 mcg tablet (Centrum Silver Men) omega-3 fatty acids 1,000 mg 1,000 mg PO DAILY 09/05/21 capsule (Fish Oil Concentrate) saw palm 50 mg-pyg 20 mg-nettl 25 1 cap PO DAILY 09/05/21 mg-pump 100 ub-qzmd-ro-Zn-Cu capsule (Prostate Control) triamcinolone acetonide 0.1 % 1 applic topical BID 09/05/21 topical cream polyethylene glycol 3350 17 gram 17 g PO DAILY PRN PRN Constipation 04/27/22 oral powder packet #0 ea tamsulosin 0.4 mg capsule 0.4 mg PO DAILY #90 caps 05/16/22 Current Visit Medications: Current Medications Generic Name Dose Route Start Last Admin Trade Name Freq PRN Reason Stop Dose Admin Ringer's Solution 1,000 mls @ 80 mls/hr 08/12/22 06:00 08/12/22 13:25 IV 09/11/22 23:59 80 mls/hr INFUSION LAURA Administration Cefazolin Sodium/Dextrose 2 gm in 50 mls @ 100 mls/hr 08/12/22 06:00 Ancef Duplex IVPB 09/11/22 23:59 PREOP LAURA IV Miscellaneous Supplies 1 each 08/12/22 06:00 Iv Access IV 09/11/22 23:59 DIRECTED LAURA Sodium Chloride 0 ml 08/12/22 06:00 Normal Saline Flush 10 Ml Syr IV 09/11/22 23:59 PRN PRN Sodium Chloride 0 ml 08/12/22 06:00 Normal Saline 10 Ml Vial IJ 09/11/22 23:59 DIRECTED PRN Sterile Water 0 ml 08/12/22 06:00 Water,Injection,Sterile 10 Ml Vial IJ 09/11/22 23:59 DIRECTED PRN PFSH Active Problems Active Problems: Problem Status Onset Code Clot retention of urine R33.8 Hematuria R31.9 Family history of prostate cancer Z80.42 Acute UTI N39.0 Urothelial carcinoma C68.9 Medical History Medical History (Updated 08/12/22 @ 13:03 by Renaldo Morgan MD) Actinic keratoses Afib Angina at rest Arthritis of both knees Bladder mass CAD (coronary artery disease) Chronic anticoagulation Heavy alcohol consumption Hematospermia HLD (hyperlipidemia) HTN (hypertension) Obesity JOLENE (obstructive sleep apnea) Prediabetes Shoulder impingement syndrome Torn meniscus Ulnar neuropathy Surgical History Surgical History (Updated 08/12/22 @ 12:52 by Flower Garces RN) History of appendectomy S/P CABG x 4 [facility] 12/20/15 RH Status post cystoscopy bladder cystoscopy Tobacco Smoking/Tobacco Use Status: Former Tobacco Use Alcohol Alcohol Intake: current Alcohol intake frequency: 3 or more drinks per day Alcohol type: beer Substance Use Substance use: Rarely Substance use type: marijuana Details: 6 pack/night Vital Signs and Lab Results Vital Signs Most Recent Vital Signs in EMR: Most Recent Vital Signs Temp Pulse Resp BP Pulse Ox 36 C L 69 18 115/82 96 08/12/22 13:04 08/12/22 13:04 08/12/22 13:04 08/12/22 13:04 08/12/22 13:04 Lab Results Blood Type / Crossmatch: No Data to Display Complete Blood Count: No Data to Display Complete Metabolic Panel: No Data to Display Liver Function Panel: No Data to Display Coagulation Panel: No Data to Display Cardiac Panel: No Data to Display Arterial Blood Gas: No Data to Display Venous Blood Gas: No Data to Display Pancreas Panel: No Data to Display Thyroid Panel: No Data to Display Infectious Disease: No Data to Display Blood Cultures: No Data to Display Toxicology Panel: No Data to Display Imaging and Studies Imaging and Studies Study information below may be from another EMR and interpreted by another provider. Please see original notes in EMR for more complete details. EKG Summary: Conclusion Atrial fibrillation...V-rate 58- 93, irreg A-activity Borderline low voltage, extremity leads...all extremity leads <0.6mV PVC Stress Test Summary: Stress ECG Conclusion 1. Resting electrocardiogram showed atrial fibrillation 2. Patient exercised on the Del protocol and completed a workload of 4.64 METS, limited by fatigue 3. Accelerated heart rate response to exercise. The patient achieved greater than 100% of predicted heart rate for age 4. There was no electrocardiographic evidence of myocardial ischemia 5. Atrial fibrillation was present throughout, with premature ventricular contractions versus aberrancy 6. See MPI report Hunt Treadmill Score is 1.7 which is Moderate risk. Echocardiogram Summary: Conclusion Normal left ventricular wall thickness and chamber size. Estimated ejection fraction is 55%. No wall motion abnormalities are identified Normal right ventricular size and systolic function The left atrium is moderately dilated. The right atrium is borderline dilated Mildly sclerotic trileaflet aortic valve without stenosis or regurgitation Mild mitral annular calcification. Mild mitral regurgitation Normal tricuspid valve with mild regurgitation. Estimated right ventricular systolic pressure is 30 mmHg Mildly dilated ascending aorta measuring 3.76 cm Anesthesia Assessment and Plan Anesthesia History Personal History: No History of Anesthesia Complications Family History: No Family History of Anesthesia Complications Exercise Tolerance Exercise Tolerance: Metabolic Equivalents<4 Pertinent Negatives Pertinent Negatives: No Symptoms of GERD, No Major Cardiovascular Symptoms or Complaints, No Major Pulmonary Symptoms or Complaints and No History of CVA/TIA Cardiac & Pulmonary Exam Cardiac Exam: Normal S1/S2 Heart Sounds Pulmonary Exam: Clear Bilateral Breath Sounds Implantable Cardiac Device Does patient have a Pacemaker or an ICD?: No Airway Exam Known Difficult Airway: No Mallampati Class: 3 Mouth Opening: Normal (> 3cm) Thyromental Distance: Greater than 3 cm Neck Range of Motion: Full ROM Neck Circumference: Normal Teeth Condition: Normal Dentition ASA Classification ASA Score: ASA 3 Emergency Case?: No NPO Status NPO Status: NPO Small Non-Fatty Meal >6 hours Anesthesia Plan Resuscitation Status: Full Code Anesthesia Technique: General Anesthesia Airway Planned: Natural Airway Monitors Used: Standard Monitors Preoperative Comments:: previous anes: prop, face mask, without issues.
[2022-08-12] MEDS: ceFAZolin 2 GM/50 ML BAG IVPB (14:08)
[2022-08-12] MEDS: Lidocaine 2% Jelly 6 ML SYR (14:29)
--- NOTE | 2022-08-12 14:43 | PDOC.DSDIS_ITS ---
Date of service: 08/12/22 Time of Service: 14:43 Discharge Plan Disposition Patient Disposition: HOME Condition: Stable Discharge Details Reason For Visit: cystoscopy with clot evacuation Attending Provider: Renaldo Morgan Primary Care Provider: [facility] Course Hospital Course: N/A Home Meds and New Rx's Prescriptions: No Action tamsulosin 0.4 mg capsule 0.4 mg PO DAILY Qty: 90 0RF Prostate Control 20-55-20-100 mg capsule 1 cap PO DAILY Eliquis 5 mg tablet 5 mg PO BID atorvastatin 40 mg tablet 40 mg PO QHS metoprolol tartrate 50 mg tablet 50 mg PO BID lisinopril 10 mg tablet 10 mg PO DAILY triamcinolone acetonide 0.1 % cream 1 applic topical BID Centrum Silver Men 300-600-300 mcg tablet 1 tab PO DAILY cholecalciferol (vitamin D3) 50 mcg (2,000 unit) capsule 50 mcg PO DAILY omega-3 fatty acids [Fish Oil Concentrate] 1,000 mg capsule 1,000 mg PO DAILY polyethylene glycol 3350 17 gram Powder In Packet 17 g PO DAILY PRN PRN (Reason: Constipation) Qty: 0 0RF Discharge Instructions Additional Instructions: Elizabeth to legbag - instruct pt in use Hold Eliquis this evening but restart tomorrow AM Elizabeth catheter later this week in our office Pt should already have F/U appt to review surgical pathology Activity:: Activity as Tolerated Shower/Bathe:: 24 hours Activity:: Activity as Tolerated Equipment/Supplies:: elizabeth to legbag Diet:: As Tolerated Discharge Orders Discharge Orders: Discharge Order (Routine); Ordered 08/12/22 Ordered By: Renaldo Morgan DS: Diagnosis Discharge Diagnosis (1) Clot retention of urine: Status: Acute
--- NOTE | 2022-08-12 14:52 | ROE_ITS ---
Date of service: 08/12/22 Time of Service: 14:52 Operative Note Operative Note DATE OF PROCEDURE: 08/12/22 PRE-OP DIAGNOSIS: Clot retention POST-OP DIAGNOSIS: same PROCEDURE: Cystoscopy with evacuation of clots from bladder SURGEON: Renaldo Morgan ANESTHESIA TYPE: General LMA/ETT Refer to Anesthesia Record ESTIMATED BLOOD LOSS: 50 PATHOLOGY: none sent COMPLICATIONS: None Patient was transported to: PACU Patient's condition: stable Implants: 16 Jordanian elizabeth catheter with 10 cc sterile water in balloon Indications: This is a 77-year-old gentleman who has a history of atrial fibrillation. He is on chronic anticoagulants. Last week, he underwent cystoscopy, biopsy of a bladder lesion, fulguration of the biopsy site and instillation of Mitomycin-C into the bladder. He restarted his anticoagulants about 24 hours after the procedure. He has had gross hematuria for the past 3 days and began passing clots yesterday. He has had more difficulty voiding and presents now for clot evacuation. Findings: Multiple clots in bladder No active bleeding from biopsy site Venous oozing from prostate Procedure Description: The patient was brought to the operating room on 08/12/2022. He was given preop erative antibiotics. After successful induction of general anesthesia, he was placed in the dorsal lithotomy position. His genitalia was prepped and draped. 2% Xylocaine jelly was instilled into the urethra to act as a local anesthetic. A 22 Jordanian rigid cystoscope was passed through the urethra into the bladder. The bladder was inspected with a 30 degree lens. The pendulous, bulbar and membranous urethra's appeared normal. The prostatic urethra had some lateral lobe enlargement and a slow venous ooze of blood from the superficial blood vessels. No papillary lesions were seen on the prostatic urethra. The bladder neck was entered and initially visibility was compromised by the presence of blood clots. The blood clots were hand irrigated out using a German syringe. The previous biopsy site was then inspected and no venous oozing or arterial bleeding was seen. The bladder was then filled with irrigant and a 16 Jordanian Elizabeth catheter was passed through the urethra into the bladder. The catheter balloon was inflated with 10 cc of sterile water and the catheter was hooked to gravity drainage. He tolerated this procedure with no complications.
--- NOTE | 2022-08-12 14:58 | W.PM.DSUDISC ---
Date of service: 08/12/22 Time of Service: 15:02 Discharge Plan Disposition Patient Disposition: HOME Condition: Stable Discharge Details Reason For Visit: cystoscopy with clot evacuation Attending Provider: Renaldo Morgan Primary Care Provider: Kingsley Handy [facility] Course Hospital Course: N/A Home Meds and New Rx's Prescriptions: New finasteride 5 mg tablet 5 mg PO DAILY Qty: 14 0RF No Action tamsulosin 0.4 mg capsule 0.4 mg PO DAILY Qty: 90 0RF Prostate Control 93-46-33-100 mg capsule 1 cap PO DAILY Eliquis 5 mg tablet 5 mg PO BID atorvastatin 40 mg tablet 40 mg PO QHS metoprolol tartrate 50 mg tablet 50 mg PO BID lisinopril 10 mg tablet 10 mg PO DAILY triamcinolone acetonide 0.1 % cream 1 applic topical BID Centrum Silver Men 300-600-300 mcg tablet 1 tab PO DAILY cholecalciferol (vitamin D3) 50 mcg (2,000 unit) capsule 50 mcg PO DAILY omega-3 fatty acids [Fish Oil Concentrate] 1,000 mg capsule 1,000 mg PO DAILY polyethylene glycol 3350 17 gram Powder In Packet 17 g PO DAILY PRN PRN (Reason: Constipation) Qty: 0 0RF Discharge Instructions Additional Instructions: Elizabeth to legbag - instruct pt in use Hold Eliquis this evening but restart tomorrow AM Elizabeth catheter later this week in our office Pt should already have F/U appt to review surgical pathology It appears that the blood was from your prostate more than from your bladder - you got a dose of finasteride today in the hospital and a prescription for the medication was sent to your pharmacy. You should start taking the prescription tomorrow. Stand Alone Forms: Anesthesia Discharge Inst., Khurram Bunch (DSU) Activity:: Activity as Tolerated Shower/Bathe:: 24 hours Activity:: Activity as Tolerated Equipment/Supplies:: elizabeth to legbag Diet:: As Tolerated Discharge Orders Discharge Orders: Discharge Order (Routine); Ordered 08/12/22 Ordered By: Renaldo Morgan DS: Diagnosis Discharge Diagnosis (1) Clot retention of urine: Status: Acute
--- NOTE | 2022-08-12 15:11 | W.ANESPOSTOP ---
Postoperative Evaluation Date, Time and Location Date Performed: 08/12/22 Time Performed: 15:11 Patient Location: PACU Vital Signs Most Recent Imported Vital Signs: Most Recent Vital Signs Temp Pulse Resp BP Pulse Ox 36.6 C 55 L 13 107/63 94 08/12/22 15:05 08/12/22 15:05 08/12/22 15:05 08/12/22 15:05 08/12/22 15:05 Pain Score Most Recent Pain Score: Most Recent Pain Score Pain Level 0 08/12/22 15:05 Assessment Mental Status: Awake (Alert & Oriented to Patient Baseline) Airway and Respiratory Function: Patent airway with normal (patient baseline) respiratory exam Cardiovascular Function: Hemodynamically Stable Hydration Status: Adequately Hydrated Nausea & Vomiting: No Nausea or Vomiting Pain: Pain is tolerable per patient Peripheral Nerve Block: Patient did not receive a nerve block
[2022-08-12] MEDS: Finasteride 5 MG TAB PO (15:34)
[2022-08-12] MEDS: Phenazopyridine 200 MG TAB PO (15:35)
== END 2022-08-12 16:19 | disposition home or self-care (01) ==
PROVIDERS: PCP Internal Medicine; Visit Provider Urology
PROC: 0TJB8ZZ Inspection of Bladder, Via Natural or Artificial Opening Endoscopic (ICD-10-PCS; CPT 52000; principal; 2022-08-12 14:00)
DX: R31.0 Gross hematuria (principal); R33.8 Other retention of urine; Z79.01 Long term (current) use of anticoagulants; I48.91 Unspecified atrial fibrillation
CPT/HCPCS: 52001; 99214; J0690; J1100; J1885; J2405; J2704

== ENCOUNTER 2022-08-12 21:09 | Outpatient (REF) | payer MEDICARE, BC, SELFPAY | END 2022-08-12 21:10 | disposition home or self-care (01) | LOC: LBN 21:09 | PROVIDERS: PCP Internal Medicine; Visit Provider Nurse Practitioner Gerontology | DX: R31.0 Gross hematuria (principal) | CPT/HCPCS: 87086 ==

== ENCOUNTER → 2022-08-14 13:51 | Outpatient (BNVA) | payer MEDICARE, BC, SELFPAY | PROVIDERS: PCP Internal Medicine; Referring Provider Internal Medicine; Visit Provider Nurse Practitioner Gerontology | DX: C68.9 Malignant neoplasm of urinary organ, unspecified (principal); N32.89 Other specified disorders of bladder | CPT/HCPCS: 99213 ==

== ENCOUNTER → 2022-08-20 14:45 | Outpatient (BNVA) | payer MEDICARE, BC, SELFPAY | PROVIDERS: PCP Internal Medicine; Referring Provider Internal Medicine; Visit Provider Urology | DX: C68.9 Malignant neoplasm of urinary organ, unspecified (principal) | CPT/HCPCS: 99213 ==

== ENCOUNTER 2022-09-06 08:54 | Day surgery (SDC) | payer MEDICARE, BC, SELFPAY ==
[2022-09-06 09:00] VITALS: BP 143/83; PULSE 46; RESP 16; TEMP 37; O2SAT 96
[2022-09-06] MEDS: Tropicam./Phenyleph. (1/2.5%) 5 ML BTL OS ×3 (09:24→09:38)
--- NOTE | 2022-09-06 09:38 | W.ANESPRE ---
General Info Date of Service Date Performed: 09/06/22 Height: 5 ft 9 in Weight: 117 kg Body Mass Index (BMI): 38.0 Surgical Procedure: Operation Date: 09/06/22 11:25 Proposed Procedure Side Surgeon p Cataract Extraction with IOL Implant Left Favio Bell MD Meds Allergies and Home Medications Allergies Allergy/AdvReac Type Severity Reaction Status Date / Time No Known Allergies Allergy Verified 09/06/22 09:18 Home Medication Medication Instructions Recorded apixaban 5 mg tablet (Eliquis) 5 mg PO BID 09/05/21 atorvastatin 40 mg tablet 40 mg PO QHS 09/05/21 cholecalciferol (vitamin D3) 50 50 mcg PO DAILY 09/05/21 mcg (2,000 unit) capsule lisinopril 10 mg tablet 10 mg PO DAILY 09/05/21 metoprolol tartrate 50 mg tablet 50 mg PO BID 09/05/21 wmxpfmlx-cqh-mesie acid 300 1 tab PO DAILY 09/05/21 mcg-lycopene 600 mcg-lutein 300 mcg tablet (Centrum Silver Men) omega-3 fatty acids 1,000 mg 1,000 mg PO DAILY 09/05/21 capsule (Fish Oil Concentrate) saw palm 50 mg-pyg 20 mg-nettl 25 1 cap PO DAILY 09/05/21 mg-pump 100 pz-vjgy-eb-Zn-Cu capsule (Prostate Control) triamcinolone acetonide 0.1 % 1 applic topical BID 09/05/21 topical cream polyethylene glycol 3350 17 gram 17 g PO DAILY PRN PRN Constipation 04/27/22 oral powder packet #0 ea finasteride 5 mg tablet 5 mg PO DAILY #14 tabs 08/12/22 tamsulosin 0.4 mg capsule See Rx Instructions .Route 08/26/22 .COMPLEX #90 caps Current Visit Medications: Current Medications Generic Name Dose Route Start Last Admin Trade Name Freq PRN Reason Stop Dose Admin Acetaminophen 1,000 mg 09/06/22 06:00 Acetaminophen 500 Mg Tab PO Q4H PRN PRN Miscellaneous Medication 0 ml 09/06/22 06:00 Prednisolone 1%, Moxifloxacin 0.5%, Nepafenac 0.1% 5ml Btl OS DIRECTED LAURA Miscellaneous Medication 0 ml 09/06/22 06:00 09/06/22 09:38 Tropicam./Phenyleph. (1/2.5%) 5 Ml Btl OS 1 drp DIRECTED LAURA Administration Tetracaine HCl 0 ml 09/06/22 06:00 Tetracaine 0.5% 4 Ml Btl OS DIRECTED LAURA PFSH Active Problems Active Problems: Problem Status Onset Code Nuclear sclerotic cataract of left eye H25.12 Hematuria R31.9 Family history of prostate cancer Z80.42 Acute UTI N39.0 Urothelial carcinoma C68.9 Medical History Medical History Actinic keratoses Afib Angina at rest Arthritis of both knees Bladder mass CAD (coronary artery disease) Chronic anticoagulation Heavy alcohol consumption Hematospermia HLD (hyperlipidemia) HTN (hypertension) Obesity JOLENE (obstructive sleep apnea) Prediabetes Shoulder impingement syndrome Torn meniscus Ulnar neuropathy Surgical History Surgical History History of appendectomy S/P CABG x 4 [facility] 12/20/15 RH Status post cystoscopy bladder cystoscopy Tobacco Smoking/Tobacco Use Status: Former Tobacco Use Alcohol Alcohol Intake: current Alcohol intake frequency: 3 or more drinks per day Alcohol type: beer Substance Use Substance use: Rarely Substance use type: marijuana Details: 6 pack/night Vital Signs and Lab Results Vital Signs Most Recent Vital Signs in EMR: Most Recent Vital Signs Temp Pulse Resp BP Pulse Ox 37 C 46 L 16 143/83 H 96 09/06/22 09:00 09/06/22 09:00 09/06/22 09:00 09/06/22 09:00 09/06/22 09:00 Lab Results Blood Type / Crossmatch: No Data to Display Complete Blood Count: No Data to Display Complete Metabolic Panel: No Data to Display Liver Function Panel: No Data to Display Coagulation Panel: No Data to Display Cardiac Panel: No Data to Display Arterial Blood Gas: No Data to Display Venous Blood Gas: No Data to Display Pancreas Panel: No Data to Display Thyroid Panel: No Data to Display Infectious Disease: No Data to Display Blood Cultures: No Data to Display Toxicology Panel: No Data to Display Imaging and Studies Imaging and Studies Study information below may be from another EMR and interpreted by another provider. Please see original notes in EMR for more complete details. EKG Summary: Conclusion Atrial fibrillation...V-rate 58- 93, irreg A-activity Borderline low voltage, extremity leads...all extremity leads <0.6mV PVC Stress Test Summary: Stress ECG Conclusion 1. Resting electrocardiogram showed atrial fibrillation 2. Patient exercised on the Del protocol and completed a workload of 4.64 METS, limited by fatigue 3. Accelerated heart rate response to exercise. The patient achieved greater than 100% of predicted heart rate for age 4. There was no electrocardiographic evidence of myocardial ischemia 5. Atrial fibrillation was present throughout, with premature ventricular contractions versus aberrancy 6. See MPI report Hunt Treadmill Score is 1.7 which is Moderate risk. Echocardiogram Summary: Conclusion Normal left ventricular wall thickness and chamber size. Estimated ejection fraction is 55%. No wall motion abnormalities are identified Normal right ventricular size and systolic function The left atrium is moderately dilated. The right atrium is borderline dilated Mildly sclerotic trileaflet aortic valve without stenosis or regurgitation Mild mitral annular calcification. Mild mitral regurgitation Normal tricuspid valve with mild regurgitation. Estimated right ventricular systolic pressure is 30 mmHg Mildly dilated ascending aorta measuring 3.76 cm Anesthesia Assessment and Plan Anesthesia History Personal History: No History of Anesthesia Complications Family History: No Family History of Anesthesia Complications Exercise Tolerance Exercise Tolerance: Metabolic Equivalents<4 Pertinent Negatives Pertinent Negatives: No Symptoms of GERD Cardiac & Pulmonary Exam Cardiac Exam: Normal S1/S2 Heart Sounds Pulmonary Exam: Clear Bilateral Breath Sounds Implantable Cardiac Device Does patient have a Pacemaker or an ICD?: No Airway Exam Known Difficult Airway: No Mallampati Class: 3 Mouth Opening: Normal (> 3cm) Thyromental Distance: Greater than 3 cm Neck Range of Motion: Full ROM Neck Circumference: Normal Teeth Condition: Normal Dentition ASA Classification ASA Score: ASA 3 Emergency Case?: No NPO Status NPO Status: NPO Clears >2 hours, Solids >8 hours Anesthesia Plan Resuscitation Status: Full Code Anesthesia Technique: MAC Anesthesia Airway Planned: Natural Airway Monitors Used: Standard Monitors Preoperative Comments:: No MKO per pt
[2022-09-06 09:41] VITALS: BMI 38.0
[2022-09-06] MEDS: Tetracaine 0.5% 4 ML BTL OS (10:24)
[2022-09-06] MEDS: Lidocaine 2% Jelly 6 ML SYR (10:27)
[2022-09-06] MEDS: Povidone-Iodine Ophth 30 ML BTL (10:28)
[2022-09-06] MEDS: Duovisc Viscoelastic System EACH 1 EACH (10:30)
[2022-09-06] MEDS: Balanced Salt Soln.-PLUS 500 ML BAG (10:30)
[2022-09-06 10:57] VITALS: BP 168/98; PULSE 72; RESP 16; TEMP 36.3; O2SAT 96
--- NOTE | 2022-09-06 11:01 | W.PM.DSUDISC ---
Date of service: 09/06/22 Time of Service: 11:01 Discharge Plan Disposition Patient Disposition: HOME Condition: Good Discharge Details Attending Provider: Favio Bell Primary Care Provider: Kingsley Handy Meds and New Rx's Prescriptions: No Action Prostate Control 42-52-09-100 mg capsule 1 cap PO DAILY Eliquis 5 mg tablet 5 mg PO BID atorvastatin 40 mg tablet 40 mg PO QHS metoprolol tartrate 50 mg tablet 50 mg PO BID lisinopril 10 mg tablet 10 mg PO DAILY triamcinolone acetonide 0.1 % cream 1 applic topical BID Centrum Silver Men 300-600-300 mcg tablet 1 tab PO DAILY cholecalciferol (vitamin D3) 50 mcg (2,000 unit) capsule 50 mcg PO DAILY omega-3 fatty acids [Fish Oil Concentrate] 1,000 mg capsule 1,000 mg PO DAILY tamsulosin 0.4 mg capsule See Rx Instructions .ROUTE .COMPLEX Qty: 90 4RF Dose Instruction: TAKE 1 CAPSULE BY MOUTH DAILY Rx Instructions: TAKE 1 CAPSULE BY MOUTH DAILY polyethylene glycol 3350 17 gram Powder In Packet 17 g PO DAILY PRN PRN (Reason: Constipation) Qty: 0 0RF finasteride 5 mg tablet 5 mg PO DAILY Qty: 14 0RF Discharge Instructions Stand Alone Forms: Post-op Topical Cataract, Khurram Bunch (DSU) DS: Diagnosis Discharge Diagnosis (1) Nuclear sclerotic cataract of left eye: Status: Resolved
--- NOTE | 2022-09-06 11:01 | W.PM.OP ---
Date of service: 09/06/22 Time of Service: 11:02 Operative Note Operative Note DATE OF PROCEDURE: 09/06/22 PRE-OP DIAGNOSIS: Nuclear cataract, left eye POST-OP DIAGNOSIS: same PROCEDURE: Cataract extraction using phacoemulsification with intraocular lens implant, left eye SURGEON: Favio Bell ANESTHESIA TYPE: Local By Surgeon and MAC Refer to Anesthesia Record PATHOLOGY: none sent COMPLICATIONS: None Patient was transported to: same day Patient's condition: stable Implants: Diego and Diego / [employer] Tecnis [id number] Indications: Progressive decreased vision due to cataract, left eye Procedure Description: CATARACT SURGERY OPERATIVE REPORT PREOPERATIVE DIAGNOSIS: 1. Nuclear cataract, left eye POSTOPERATIVE DIAGNOSIS: Same OPERATION: 1. Cataract extraction using phacoemulsification with posterior chamber intraocular lens implant, left eye. IOL: IOL Computer Lab Aide/Model: Diego & Diego / SRINIVASA Tecnis [id number] IOL Power: + 22.0 diopters IOL Serial Number: [id number] Optic Diameter: 6.0 mm Haptic/Overall Diameter: 13.0 mm PHACO INFO: Surya Finconurion Vision System with OZil and Active Fluidics Cumulative Dispersed Energy (CDE): 13.24 seconds SURGEON: Favio Bell MD, JATINDER ANESTHESIA: Monitored A [facility] (MAC), with local sub-tenon's anesthetic infiltration COMPLICATIONS: None SPECIMENS: None INDICATIONS FOR PROCEDURE: The patient is a 77-year-old gentleman with history of diminished visual acuity in his left eye secondary to the development of nuclear cataract. He has previously undergone cataract surgery in the right eye in [facility]. He is significantly symptomatic from cataract in his left eye that he desired cataract surgery and attempt to improve and maximize his vision. PROCEDURE: The correct surgical eye was identified and marked as the left eye and the pupil was dilated in the preoperative area using mydriatics and cycloplegics. The dilated pupil size was 7.0 mm. The patient elected to proceed without oral sedation. The patient was brought to the operating room where cardiopulmonary monitoring was instituted and surgical time-out was performed, confirming the correct operative eye and IOL power. Topical anesthesia was administered and ophthalmic povidone-iodine 5% was instilled into the conjunctival fornices. Lidocaine gel was applied to the cornea and the eddie-ocular area was prepped with Betadine 10% solution and draped in the usual sterile fashion for intraocular surgery, including an aperture drape. A Tegaderm transparent film dressing was cut in half and used to cover the lashes and lid margins. Care was taken to sequester the lashes and lid margins under the Tegaderm dressing. A lid speculum was placed between the lids of the operative eye and the Surya LuxOR Revalia operating microscope was maneuvered into position. Won scissors were then used to make a conjunctival buttonhole approximately 6mm posterior to the limbus in the inferonasal quadrant. Blunt dissection was carried out to expose bare sclera, and a blunt-tipped sub-tenon?s anesthesia cannula was introduced and passed posteriorly along the globe where non-preserved plain lidocaine was injected into posterior sub-Tenon?s space. A sideport knife was used to make a paracentesis port superiorly/superiortemporally. Intraocular phenylephrine/lidocaine was injected int the anterior chamber.. The anterior chamber was filled with viscoelastic. A keratome knife was used to construct a 2-plane near-clear corneal tunnel extending 2.0mm into clear cornea temporally. A flap was raised on the anterior capsule and capsulorhexis forceps were used to complete a continuous curvilinear capsulorhexis of 4.8 mm. Balanced salt solution was then used to perform cortical cleaving hydrodissection and nuclear hydrodelineation until the lens could be freely rotated within the capsular bag. The lens nucleus was then disassembled and removed within the capsular bag and iris plane using phacoemulsification. Residual cortical material was removed using the 45-degree angled silicone I/A tip with 0.3mm port. The posterior capsule was carefully polished to remove as much residual lens epithelial cells as safely possible. The capsular bag was then inflated and the anterior chamber deepened with viscoelastic. The lens implant described above was inserted into the capsular bag using the SRINIVASA [place] Injector. A Kuglen hook was used to dial the IOL into position. Residual viscoelastic was then removed first from posterior to the IOL, then from the anterior chamber using the I/A handpiece. The lens implant was noted to center nicely within the capsular bag. The incisions were stromally hydrated, and the anterior chamber was reformed using BSS. Then 0.5cc of moxifloxacin 1.0mg/ml were injected into the capsular bag and anterior chamber. The incisions were checked with a Weck spear and found to be secure. Several drops of ophthalmic povidone-iodine 5% were then applied to the eye followed by two drops of Imprimis combination prednisolone/moxifloxacin/nepafenac solution. The drapes were removed and a clear plastic protective eye shield was placed over the eye. The patient was then returned to Same Day Surgery in stable condition.
--- NOTE | 2022-09-06 11:06 | W.ANESPOSTOP ---
Postoperative Evaluation Date, Time and Location Date Performed: 09/06/22 Time Performed: 11:06 Patient Location: Day Surgery Unit Vital Signs Most Recent Imported Vital Signs: Most Recent Vital Signs Temp Pulse Resp BP Pulse Ox 36.3 C L 72 16 168/98 H 96 09/06/22 10:57 09/06/22 10:57 09/06/22 10:57 09/06/22 10:57 09/06/22 10:57 Pain Score Most Recent Pain Score: Most Recent Pain Score Pain Level 0 09/06/22 10:57 Assessment Mental Status: Awake (Alert & Oriented to Patient Baseline) Airway and Respiratory Function: Patent airway with normal (patient baseline) respiratory exam Cardiovascular Function: Hemodynamically Stable Hydration Status: Adequately Hydrated Nausea & Vomiting: No Nausea or Vomiting Pain: Pt. Denies Any Pain Peripheral Nerve Block: Patient did not receive a nerve block
== END 2022-09-06 11:21 | disposition home or self-care (01) ==
LOC: SUR 08:54
PROVIDERS: PCP Internal Medicine; Visit Provider Ophthalmology
PROC: (CPT 66984; principal; 2022-09-06 11:15)
DX: H25.12 Age-related nuclear cataract, left eye (principal); G47.33 Obstructive sleep apnea (adult) (pediatric); R73.03 Prediabetes; I48.91 Unspecified atrial fibrillation
CPT/HCPCS: 66984; V2632

== ENCOUNTER → 2022-12-31 09:23 | Outpatient (BNVA) | payer MEDICARE, BC, SELFPAY | PROVIDERS: PCP Internal Medicine; Referring Provider Internal Medicine; Visit Provider Physical Therapy Assistant | DX: L98.9 Disorder of the skin and subcutaneous tissue, unspecified (principal) | CPT/HCPCS: 99213 ==

== ENCOUNTER 2023-01-04 15:39 | Emergency (ER) | payer MEDICARE, BC, SELFPAY ==
[2023-01-04] VITALS (26 sets, daily range): BP systolic 146–177; BP diastolic 72–120; PULSE 54–110; RESP 15–28; TEMP 37.1; O2SAT 91–97
--- NOTE | 2023-01-04 15:30 | RT.EKG_ITS ---
APPROVED REPORT Exam: Resting ECG Reason for Exam: difficulty breathing Patient Location: E HR:116 bpm ECG Measurements Heart Rate 116 AXIS CA [id number] P [id number] QRSd 91 QRS 34 QT 321 T 2 QTc 446 Conclusion Atrial fibrillation...V-rate 91-150, irreg A-activity Ventricular premature complex...V complex w/ short R-R interval motion artifact, no stemi
--- NOTE | 2023-01-04 15:56 | ED.GENADUL_ITS ---
Discharge Plan Disposition Patient Disposition: Home Condition: Poor Discharge Details Clinical Impression: Brain TIA Primary Care Provider: Kingsley Handy ED Provider: Jacki Mazariegos Home Meds and New Rx's Prescriptions: Continued Prostate Control 24-86-92-100 mg capsule 1 cap PO DAILY Eliquis 5 mg tablet 5 mg PO BID atorvastatin 40 mg tablet 40 mg PO QHS metoprolol tartrate 50 mg tablet 50 mg PO BID lisinopril 10 mg tablet 10 mg PO DAILY triamcinolone acetonide 0.1 % cream 1 applic topical BID Centrum Silver Men 300-600-300 mcg tablet 1 tab PO DAILY cholecalciferol (vitamin D3) 50 mcg (2,000 unit) capsule 50 mcg PO DAILY omega-3 fatty acids [Fish Oil Concentrate] 1,000 mg capsule 1,000 mg PO DAILY tamsulosin 0.4 mg capsule See Rx Instructions .ROUTE .COMPLEX Qty: 90 4RF Dose Instruction: TAKE 1 CAPSULE BY MOUTH DAILY Rx Instructions: TAKE 1 CAPSULE BY MOUTH DAILY polyethylene glycol 3350 17 gram Powder In Packet 17 g PO DAILY PRN PRN (Reason: Constipation) Qty: 0 0RF finasteride 5 mg tablet 5 mg PO DAILY Qty: 14 0RF Discharge Instructions Instructions: Transient Ischemic Attack (ED), Self Care Measures After a Stroke (ED) Additional Instructions: I am concerned that you had a transischemic attack or a mini stroke. As we discussed, this is likely associated with you having stopped your apixaban in prep for your upcoming procedure. We discussed inpatient management but she would prefer to be able to go home. As you are going home, make sure you are taking your apixaban as previously prescribed. Please closely monitor your symptoms. These events do increase your risk of more significant stroke in the future. If you have any recurrence of your symptoms such as facial drooping, slurred speech, weakness, headache or other new/worsening symptom please seek care immediately once again. Please follow-up with your primary care as soon as possible, call on Friday to schedule follow-up appointment. Referrals: Kingsley Handy [Primary Care Provider] - Discharge Data Discharge Date/Time-TO BE ENTERED AT DEPARTURE: 01/04/23 19:59 Medical Decision Making Patient is a pleasant 77-year-old male prior with past medical history pertinent for atrial fibrillation, CAD, HLD, HTN, JOLENE, obesity, prediabetes, chronically anticoagulated on apixaban, presenting today with chief complaint of slurred speech. Patient reports that he is anticoagulated on apixaban but stopped that this morning today as he has upcoming procedure on his forehead for cancerous lesion. He states that around 10 AM he began noting intermittent slurred speech and states that this only last a few seconds and then self resolves. Is also been feeling more tremulous than typical. Also states that he has been having some intermittent weakness that he does have difficulty further describing. He denies any chest pain associated with this. No shortness of breath. Has not had episodes like this historically. Denies any headache. Does state that he had an episode of blurred vision. On exam, patient appears anxious but nontoxic. He is hypertensive but not severely so. VS otherwise WNL. When he had fist arrived he reported having had a few seconds of slurred speech but when I speak with the patient, I have no difficulty understanding him. He is quite clear and well spoken but clearly upset about the events of the day. I do not note any focal neurologic deficits at this time. Lungs are clear, irregularly irregular heart sounds. Hx of afib. Concerned primarily for TIA, likely having multiple events. With his stopping of the anticoagulant recently, continuing to be in a.fib, likely associated with this source. Will move forward with CT scan. Will evaluate for potential bleed although the transient nature, changing in symptoms and lack of LEVY has me less concerned for this. He is out of the window for thrombolysis. I also see no indication for this at this time. CT scan without hemorrhage. Labs reviewed, no significant abnormality. Will move forward with CTA, MRI not currently available. ANTERIOR CIRCULATION: Right internal carotid artery: Atherosclerotic calcification of the RIGHT cavernous carotid artery resulting in mild stenosis. No aneurysm. Right middle cerebral artery: No occlusion or significant stenosis. No aneurysm.? Right anterior cerebral artery: No occlusion or significant stenosis. No aneurysm.? Left internal carotid artery: Atherosclerotic calcification of the LEFT cavernous carotid artery resulting in mild stenosis. No aneurysm. Left middle cerebral artery: No occlusion or significant stenosis. No aneurysm. ? Left anterior cerebral artery: No occlusion or significant stenosis. No aneurysm.? POSTERIOR CIRCULATION: Right vertebral artery: No occlusion or significant stenosis. No aneurysm.? Left vertebral artery: No occlusion or significant stenosis. No aneurysm.? Basilar artery: No occlusion or significant stenosis. No aneurysm. Right posterior cerebral artery: origin of the RIGHT posterior cerebral artery arising from the RIGHT internal carotid artery. There is no aneurysm. Hypoplastic or aplastic P1 segment of the RIGHT posterior cerebral artery. Left posterior cerebral artery: No occlusion or significant stenosis. No aneurysm.? Brain: No definite mass, mass effect, or midline shift. Cerebral ventricles: No ventriculomegaly. Bones/joints: Unremarkable. No acute fracture. Soft tissues: Unremarkable. IMPRESSION: No flow-limiting stenosis. FINDINGS: Right common carotid artery: No stenosis. No dissection or occlusion. Right internal carotid artery: See Other arteries finding. Right external carotid artery: No occlusion or stenosis of the origin.? Left common carotid artery: Calcification LEFT common carotid artery most pronounced the bifurcation resulting in mild stenosis. Line calcification of the proximal LEFT internal carotid artery resulting 30% stenosis. Left internal carotid artery: See Left common carotid artery finding. Left external carotid artery: No occlusion or stenosis of the origin.? Right vertebral artery: No stenosis. No dissection or occlusion. Left vertebral artery: No stenosis. No dissection or occlusion. Aorta: The brachiocephalic vessels arising from the aortic arch have a normal 3 vessel branching pattern. Thyroid gland unremarkable as visualized. Line aero digestive tract unremarkable as visualized. Other arteries: Calcification of the RIGHT common artery bifurcation resulting mild stenosis. Line calcification proximal RIGHT internal carotid artery resulting approximately 20% stenosis. 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 Lymph nodes: Nonenlarged mediastinal lymph nodes measuring less than 1 cm in short axis median sternotomy. Soft tissues: Normal. No significant soft tissue swelling. Bones/joints: Extensive degenerative changes of the cervical spine reversal of the cervical lordosis. No acute osseous findings. Lungs: Motion artifact degrades evaluation of the lung images however, no gross consolidation. Other findings: Calcification origin RIGHT external resulting mild stenosis. Codominant vertebral arteries. No stenosis, dissection, or occlusion IMPRESSION: 1. ? No hemodynamically stenosis. 2. ? Additional incidental/nonemergent findings as discussed above. Discussed with patient. He states that since being initially evaluated, he has had no return of his symptoms. He is resting comfortably and chatting with his . Given length of symptoms and that he has had no CP or SOB, I do not see need for repeat troponin. Patient and are requesting discharge. They state they have family at home visiting and would like to go home. We discussed that typically we admit people for observation after presumed TIA. However, as kenna is typically anticoagulated, held it for procedure and we have likely cause, I do feel that after risk/benefit discussion, including him possibly deteriorating at home, we have decided to d/c to home. He is aware that he may return at any time and should return emergently with any return or increase in symptoms. Discussed with hospitalist as well about these recommendations. After this discussion, will also begin on antiplatelet- have asked patient to start on low dose ASA as well as restarting the apixaban. has already cancelled appointment for upcoming procedure. They will f/u with PCP as soon as possible. Nephew driving, is home and will monitor for symptoms. All of their questions and concerns were addressed, they are in agreement with this plan. HPI General Date/Time Provider Initiated Documentation: 01/04/23 15:41 . Limitations to Documentation: no limitations . Information obtained by: patient, family (), RN notes reviewed and old records reviewed . History of Present Illness 77 year old M presents to the emergency department with the chief complaint of intermittent slurred speech, weakness, described as moderate, Quality is described as other (denies any pain currently), and is localized to the face (change in speech, transient l eft sided facial weakness). Patient started experiencing this hour(s) (1000, over 6hrs prior to arrival) and it has been intermittent (lasts for a few seconds each time). No relieving factors improve symptom(s), No exacerbating factors reported . Patient notes weakness (area of weakness has been migratory and transient); denies confusion, chest pain, fever/chills, headaches, loss of appetite, malaise, nausea/vomiting, rash, shortness of breath and syncope. Patient did receive the following treatments prior to arrival, none Related Data Home Medications Medication Instructions Recorded Confirmed apixaban 5 mg tablet (Eliquis) 5 mg PO BID 09/05/21 12/31/22 atorvastatin 40 mg tablet 40 mg PO QHS 09/05/21 12/31/22 cholecalciferol (vitamin D3) 50 50 mcg PO DAILY 09/05/21 12/31/22 mcg (2,000 unit) capsule lisinopril 10 mg tablet 10 mg PO DAILY 09/05/21 12/31/22 metoprolol tartrate 50 mg tablet 50 mg PO BID 09/05/21 12/31/22 eztsimxe-yix-mdhbp acid 300 1 tab PO DAILY 09/05/21 12/31/22 mcg-lycopene 600 mcg-lutein 300 mcg tablet (Centrum Silver Men) omega-3 fatty acids 1,000 mg 1,000 mg PO DAILY 09/05/21 12/31/22 capsule (Fish Oil Concentrate) saw palm 50 mg-pyg 20 mg-nettl 25 1 cap PO DAILY 09/05/21 12/31/22 mg-pump 100 bm-jilc-vp-Zn-Cu capsule (Prostate Control) triamcinolone acetonide 0.1 % 1 applic topical BID 09/05/21 12/31/22 topical cream polyethylene glycol 3350 17 gram 17 g PO DAILY PRN PRN Constipation 04/27/22 12/31/22 oral powder packet #0 ea finasteride 5 mg tablet 5 mg PO DAILY #14 tabs 08/12/22 12/31/22 tamsulosin 0.4 mg capsule See Rx Instructions .Route 08/26/22 12/31/22 .COMPLEX #90 caps Previous Rx's Medication Instructions Recorded polyethylene glycol 3350 17 gram 17 g PO DAILY PRN PRN Constipation 04/27/22 oral powder packet #0 ea finasteride 5 mg tablet 5 mg PO DAILY #14 tabs 08/12/22 tamsulosin 0.4 mg capsule See Rx Instructions .Route 08/26/22 .COMPLEX #90 caps Allergies Allergy/AdvReac Type Severity Reaction Status Date / Time No Known Allergies Allergy Verified 12/31/22 09:34 General Stated Complaint: CVA/TIA PRASHANT: 2 Review of Systems Constitutional Constitutional: Reports as per HPI, Denies chills, Denies fever(s) and Denies frequent falls Eyes Eyes: Reports as per HPI, Denies blurry vision and Denies change in vision ENT Ears, Nose, Mouth, and Throat: Denies vertigo and Denies neck pain Cardiovascular Cardiovascular: Reports as per HPI, Denies chest pain, Denies lightheadedness, Denies radiating jaw, neck or arm pain and Denies dyspnea Respiratory Respiratory: Reports as per HPI, Denies cough and Denies dyspnea Gastrointestinal Gastrointestinal: Reports as per HPI, Denies abdominal pain, Denies change in bowel habits, Denies nausea and Denies vomiting Genitourinary Genitourinary: Reports system reviewed and no additional complaints, except as documented (denies change in urinary habits) Musculoskeletal Musculoskeletal: Reports as per HPI, Denies back pain, Denies myalgias, Denies neck pain and Denies numbness Integumentary/Breasts Skin/Breast: Reports as per HPI and Denies rash Neurologic Neurologic: Reports as per HPI, Denies behavioral changes, Denies confusion, Denies vertigo, Denies frequent falls, Denies numbness and Denies sensory deficit Psychiatric Psychiatric: Denies behavioral changes and Denies confusion PFSH All Active Problems (Updated 01/04/23 @ 19:44 by MARISA Sherman) Brain TIA (Acute) Skin lesion of face (Acute) Hematuria (Acute) Family history of prostate cancer (Acute) Acute UTI (Acute) Urothelial carcinoma (Acute) Medical History Actinic keratoses Afib Angina at rest Arthritis of both knees Bladder mass CAD (coronary artery disease) Chronic anticoagulation Heavy alcohol consumption Hematospermia HLD (hyperlipidemia) HTN (hypertension) Obesity JOLENE (obstructive sleep apnea) Prediabetes Shoulder impingement syndrome Torn meniscus Ulnar neuropathy Surgical History History of appendectomy S/P CABG x 4 [facility] 12/20/15 RH Status post cystoscopy bladder cystoscopy Social History Smoking/Tobacco Use Status: Former Tobacco Use Quit Date: 10/20/61 Smoking risk assessment performed?: Yes Alcohol Intake: current Alcohol Intake frequency: 3 or more drinks per day Alcohol type: beer Drug use: Rarely Substance use type: marijuana Details: 6 pack/night Do you feel safe at home: Yes Do you feel safe in your relationship?: Yes Exam Const General: cooperative, healthy appearing, comfortable, no acute distress, well developed, well groomed and anxious Nutritional Appearance: average body habitus and well nourished Orientation: alert, awake and oriented x3 HENMT Head: normal to inspection, no palpable skull fracture, normocephalic and atraumatic Ears: hearing grossly normal bilaterally, external ears normal and TM's normal bilaterally General nose exam: external nose normal Mouth: oral mucosae normal and moist mucous membranes Throat: posterior oropharynx normal Eyes General: appearance normal, both eyes and all related structures Alignment and Position: alignment normal Periorbital: periorbital findings normal Eyelids: eyelids normal Sclera: sclerae normal Cornea: corneas normal Pupils: PERRL EOM: EOM intact bilaterally Neck Neck: normal visual inspection, full ROM, no lymphadenopathy and no meningeal signs Resp Effort & Inspection: normal respiratory effort, able to speak in complete sentences and no respiratory distress Auscultation: clear to auscultation bilaterally, no rales, no rhonchi and no wheezes Cardio Rate: regular rate Rhythm: regular rhythm Heart Sounds: S1 normal and S2 normal GI Inspection: normal to inspection and non-distended Palpation: soft, no hepatosplenomegaly, not firm, no guarding, not rigid and nontender Percussion: normal to percussion Auscultation: normal bowel sounds Back/Spine/Pelvis Cervical Spine: normal cervical lordosis and cervical ROM normal Skin General skin exam: no rashes or lesions noted Neuro General: patient alert, patient awake and patient oriented x3 Cranial Nerves: CN's II-XI intact bilaterally Cognition: normal cognition Speech: speech normal Motor: muscle tone normal throughout, strength 5/5 throughout, no pronator drift, no movement abnormalities noted and no fasciculations Sensory Exam: no sensory deficits noted Coordination: shmeoy-me-cenk test normal and pynz-yp-hfyo test normal Extrem General: normal to inspection, capillary refill normal, no pedal edema and no calf tenderness Psych Appearance: grossly normal and well kempt Mental Status: mental status grossly normal Speech and Movement: speech and movement normal Course Vital Signs Vital signs: Vital Signs Temperature 37.1 C 01/04/23 15:43 Pulse 74 01/04/23 15:43 Respiratory Rate 18 01/04/23 15:43 Blood Pressure 146/110 H 01/04/23 15:43 Pulse Oximetry 97 01/04/23 15:43 Temperature 37.1 C 01/04/23 15:43 Temperature Source Oral 01/04/23 15:43 Pulse 74 01/04/23 15:43 Respiratory Rate 18 01/04/23 15:43 Blood Pressure 146/110 H 01/04/23 15:43 Pulse Oximetry 97 01/04/23 15:43 Oxygen Delivery Method Room Air 01/04/23 15:43 Oxygen Flow Rate 0 01/04/23 15:43
--- NOTE | 2023-01-04 16:00 | DI.CT_ITS ---
Exam(s) CT HEAD - STROKE PROTOCOL EXAM: CT HEAD - STROKE PROTOCOL CLINICAL HISTORY: slurred speech, intermittent weakness. TECHNIQUE: Imaging Protocol: Axial computed tomography images with coronal and sagittal reformatted images were created and reviewed COMPARISON: CT CT HEAD CERVICAL SPINE WO from 04/24/2022 FINDINGS: Ventricles and Extra axial spaces: Normal in size and morphology for the patient's age. Hemorrhage: None. Cerebral parenchyma: No acute territorial infarct is present. There are areas of decreased attenuati on in the white matter most consistent with small vessel ischemic disease. Midline shift: None. Brainstem/Cerebellum: Normal. Calvarium: Normal. Visualized Paranasal sinuses/Mastoids: Clear. Soft Tissues: Unremarkable. IMPRESSION: No acute intracranial process. RADIATION DOSE DELIVERED: 833.74mGy.cm Total DLP DATA REPOSITORY: All CT scans at this facility are submitted to the National Radiology Data Registry (NRDR) Dose Index Registry (DIR) with the [employer] (ACR). RADIATION OPTIMIZATION: All CT scans at this facility use at least one of these dose optimization te chniques: automated exposure control; mA and/or kV adjustment per patient size (includes targeted exa ms where dose is matched to clinical indication); or iterative reconstruction.
--- NOTE | 2023-01-04 16:00 | DI.RAD_ITS ---
Exam(s) XR CHEST 2V PA LATERAL EXAM: XR CHEST 2V PA LATERAL CLINICAL HISTORY: CVA TECHNIQUE: 2D digital imaging was performed of the chest. Two images were obtained. PA and lateral views were obtained. COMPARISON: CR,XR XR CHEST 2V PA LATERAL from 04/24/2022 FINDINGS: MEDIASTINUM: Normal. HEART: Cardiomegaly. PULMONARY VASCULATURE: Normal. LUNGS: Clear. PLEURAL SPACE: No pleural effusion or pneumothorax. BONE:Within normal limits for the patient's age. Sternal wires are in place. Degenerative changes a re seen in the shoulders bilaterally. OTHER FINDINGS:Normal. IMPRESSION: No acute pulmonary findings. DATA REPOSITORY: RADIATION DOSE DELIVERED:
[2023-01-04 16:17] LABS: Abs Immature Grans 0.01 10^3/uL (0.0-0.06); Absolute Basophil Count 0.05 10^3/uL (0.0-0.2); Absolute Eosinophil Count 0.16 10^3/uL (0.0-0.7); Absolute Lymphocyte Count 1.38 10^3/uL (1.2-3.4); Absolute Monocyte Count 0.77 10^3/uL (0.1-0.8); Absolute Neutrophil Count 4.72 10^3/uL (1.2-6.7); Basophils % 0.7; Eosinophils % 2.3; HCT 41.4 % (40.0-50.0); HGB 13.7 g/dL (13.5-17.5); Immature Grans % 0.1; Lymphocytes % 19.5; MCH 32.4 pg (27.0-33.0); MCHC 33.1 % (32.0-36.0); MCV 98 fL (80-95); MPV 10.3 fL (8.0-11.0); Monocytes % 10.9; Neutrophils % 66.5; Platelet Count 163 10^3/uL (130-400); RBC 4.23 10^6/uL (4.36-5.78); RDW 13.9 % (11.8-14.1); RDW-SD 50.7 fL; WBC 7.09 10^3/uL (4.4-10.8)
[2023-01-04 16:30] LABS: INR 1.2 (0.9-1.1); PTT Activated 30.3 sec (21.5-31.9)
--- NOTE | 2023-01-04 16:30 | DI.CT_ITS ---
Exam(s) CT BRAIN NECK CTA EXAM: CT BRAIN NECK CTA CLINICAL HISTORY: intermittent slurred speech. TECHNIQUE: Imaging Protocol: Axial CT angiography was performed with multi-slice acquisition and mu lti-planar and/or 3D reconstructions. CONTRAST MATERIAL: Intravenous: Omnipaque 350 contrast volume:100 mL COMPARISON: CT CT HEAD CERVICAL SPINE WO from 04/24/[address] HEAD - STROKE PROTOCOL from 01/04/2023 FINDINGS: The examination is limited due to patient motion artifact. CT Head w: Ventricles and Extra axial spaces: Normal in size and morphology for the patient's age. Hemorrhage: None. Cerebral parenchyma: There is no evidence of an acute territorial infarct. There are areas of decrea sed attenuation in the white matter consistent with small vessel ischemic disease. Midline shift: None. Brainstem/Cerebellum: Normal. Calvarium: Normal. Visualized Paranasal sinuses/Mastoids: Clear. Soft Tissues: Unremarkable. Enhancement: Unremarkable. CTA Neck W: Common Carotid: Right: No dissection, occlusion or significant stenosis. Left: No dissection, occlusion or significant stenosis. Atherosclerosis is present. External Carotid: Right: No occlusion or significant stenosis. Left: No occlusion or significant stenosis. Internal Carotid: Right: No dissection, occlusion or significant stenosis. Atherosclerosis is present. Left: No dissection, occlusion or significant stenosis. Atherosclerosis is present. Vertebral Artery: Right: No dissection, occlusion or significant stenosis. Left: No dissection, occlusion or significant stenosis. Lung Apices: Normal. Bones: Within normal limits for the patient's age. There is reversal of the normal cervical lordosis in the lower cervical spine. Soft Tissues: Normal. Thyroid gland: Unremarkable. CTA Brain W: Internal Carotid Arteries: There is atherosclerosis bilaterally in the internal carotid arteries. No aneurysm, occlusion or significant stenosis. Anterior Cerebral Arteries: Right: No aneurysm, occlusion or significant stenosis. Left: No aneurysm, occlusion or significant stenosis. Middle Cerebral Arteries: Right: No aneurysm, occlusion or significant stenosis. Left: No aneurysm, occlusion or significant stenosis. Posterior Cerebral Arteries: Right: No aneurysm, occlusion or significant stenosis. Left: No aneurysm, occlusion or significant stenosis. Vertebral Arteries: Right: No aneurysm, occlusion or significant stenosis. Left: No aneurysm, occlusion or significant stenosis. Basilar Artery: No aneurysm, occlusion or significant stenosis. IMPRESSION: 1. No large vessel occlusion or significant stenosis on the CT angiography of the head. 2. No acute intracranial process. 3. No occlusion or significant stenosis on the CT angiography of the neck. RADIATION DOSE DELIVERED: 1,264.79mGy.cm Total DLP DATA REPOSITORY: All CT scans at this facility are submitted to the National Radiology Data Registry (NRDR) Dose Index Registry (DIR) with the [employer] (ACR). RADIATION OPTIMIZATION: All CT scans at this facility use at least one of these dose optimization te chniques: automated exposure control; mA and/or kV adjustment per patient size (includes targeted exa ms where dose is matched to clinical indication); or iterative reconstruction.
[2023-01-04 16:35] LABS: ALT 23 U/L (16-63); AST 23 U/L (15-37); Alkaline Phosphatase 115 U/L (46-116); Anion Gap 8.8 mmol/L (3-11); BUN 11 mg/dL (7-18); Bilirubin, Total 1.6 mg/dL (0.2-1.0); CO2 27.2 mmol/L (21.0-32.0); Chloride 101 mmol/L (98-107); Estimated GFR 76.56 (mL/min/1.73m2); Glucose 154 mg/dL (74-106); Magnesium 1.7 mg/dL (1.8-2.4); Potassium 4.3 mmol/L (3.5-5.1); Sodium 137 mmol/L (136-145); Troponin I < 50 ng/L (<or=60)
--- NOTE | 2023-01-04 16:43 | DI.VRAD_ITS ---
PROCEDURE INFORMATION: Exam: CT Head Without Contrast Exam date and time: 01/04/2023 4:26 PM Age: 77 years old Clinical indication: Stroke-like symptoms; Speech disturbance; Other: Intermitent weakness; Additional info: Slurred speech, intermittent weakness TECHNIQUE: Imaging protocol: Computed tomography of the head without contrast. Other technique: STROKE PROTOCOL was implemented. COMPARISON: CT HEAD CERVICAL SPINE WO 04/24/2022 6:49 AM FINDINGS: Brain: No intracranial hemorrhage. Mild periventricular and subcortical white matter hypoattenuation, nonspecific but consistent with chronic microvascular ischemic disease. Normal gonzalez-white differentiation. No large acute territorial infarct. No extra-axial collections. Mass or midline shift. No cerebral edema. Prominent extra-axial space in the LEFT lateral posterior fossa may represent an arachnoid cyst with mild mass effect upon the LEFT cerebellar hemisphere. Intracranial arterial calcification is present. Cerebral ventricles: The ventricles are normal in position and mildly enlarged. There is commensurate cortical sulcal prominence. The findings are consistent with age appropriate cerebral atrophy. No hydrocephalus. Paranasal sinuses: The visualized paranasal sinuses are well-aerated. There are no air fluid levels to suggest acute sinusitis. Mastoid air cells: The tympanomastoid air cells are normally aerated as visualized. Orbital cavities: The platinum lenses are absent. The orbits are otherwise unremarkable as visualized. Focal hyperattenuating structure in the LEFT supra orbital soft tissues unchanged since previous exam likely calcification or radiopaque foreign body. Bones/joints: No acute fracture. No suspicious osseous lesions. Soft tissues: The soft tissues are unremarkable. IMPRESSION: 1. No acute intracranial findings. 2. Additional stable incidental/nonemergent findings as discussed above. 3. As a negative CT scan does not exclude an acute stroke, if there is persistent concern for an acute infarct, followup MRI of the brain with diffusion weighted images (if there are no contraindications to MRI) or CT angiogram of the head and neck with perfusion imaging could be performed. Alternatively CT scan of the brain within 24 hours is recommended. ASSESSMENT: ASPECTS ([place] Stroke Program Early CT Score) is 10. Dictated and Authenticated by: Argentina Dejesus MD. Ordering:BLANKA Echeverria MD
--- NOTE | 2023-01-04 16:45 | DI.VRAD_ITS ---
PROCEDURE INFORMATION: Exam: XR Chest Exam date and time: 01/04/2023 4:30 PM Age: 77 years old Clinical indication: Other: CVA; Prior surgery; Surgery date: 6+ months; Additional info: Slurred speech, intermittent weakness TECHNIQUE: Imaging protocol: Radiologic exam of the chest. Views: 2 views. COMPARISON: CR XR CHEST 2V PA LATERAL 04/24/2022 7:01 AM FINDINGS: Lungs: There is no pulmonary consolidation or mass. Pleural spaces: There is no evidence of pleural effusion or pneumothorax. Heart/Mediastinum: Mild cardiomegaly. Vasculature: Tortuous calcified thoracic aorta. Bones/joints: Post sternotomy changes. Marked degenerative changes of the glenohumeral joints bilaterally. Possible ossific loose bodies LEFT shoulder. Degenerative changes of the thoracic spine. IMPRESSION: 1. No acute cardiopulmonary disease. Stable mild cardiomegaly. 2. Additional incidental/nonemergent findings as discussed above. Dictated and Authenticated by: Argentina Dejesus MD. Ordering:BLANKA Echeverria MD
[2023-01-04] MEDS: Normal Saline - Diluent 50 ML VIAL IJ (17:19)
[2023-01-04] MEDS: Omnipaque 350 MG/ML 100 ML BTL IJ (17:20)
[2023-01-04] MEDS: Normal Saline Flush 10 ML SYR IVP (17:20)
--- NOTE | 2023-01-04 17:41 | DI.VRAD_ITS ---
PROCEDURE INFORMATION: Exam: CTA Head With Contrast, Arteriography Exam date and time: 01/04/2023 5:09 PM Age: 77 years old Clinical indication: Other: Intermittent slurred speech; Additional info: Slurred speech, intermittent weakness TECHNIQUE: Imaging protocol: Computed tomographic angiography of the head with contrast. Exam focused on the arteries. 3D rendering (Not supervised by radiologist): MIP and/or 3D reconstructed images were created by the technologist. Contrast material: OMNIPAQUE 350; Contrast volume: 100 ml; Contrast route: INTRAVENOUS (IV); COMPARISON: CT HEAD - STROKE PROTOCOL 01/04/2023 4:26 PM FINDINGS: ANTERIOR CIRCULATION: Right internal carotid artery: Atherosclerotic calcification of the RIGHT cavernous carotid artery resulting in mild stenosis. No aneurysm. Right middle cerebral artery: No occlusion or significant stenosis. No aneurysm. Right anterior cerebral artery: No occlusion or significant stenosis. No aneurysm. Left internal carotid artery: Atherosclerotic calcification of the LEFT cavernous carotid artery resulting in mild stenosis. No aneurysm. Left middle cerebral artery: No occlusion or significant stenosis. No aneurysm. Left anterior cerebral artery: No occlusion or significant stenosis. No aneurysm. POSTERIOR CIRCULATION: Right vertebral artery: No occlusion or significant stenosis. No aneurysm. Left vertebral artery: No occlusion or significant stenosis. No aneurysm. Basilar artery: No occlusion or significant stenosis. No aneurysm. Right posterior cerebral artery: origin of the RIGHT posterior cerebral artery arising from the RIGHT internal carotid artery. There is no aneurysm. Hypoplastic or aplastic P1 segment of the RIGHT posterior cerebral artery. Left posterior cerebral artery: No occlusion or significant stenosis. No aneurysm. Brain: No definite mass, mass effect, or midline shift. Cerebral ventricles: No ventriculomegaly. Bones/joints: Unremarkable. No acute fracture. Soft tissues: Unremarkable. IMPRESSION: No flow-limiting stenosis. PROCEDURE INFORMATION: Exam: CTA Neck With Contrast Exam date and time: 01/04/2023 5:09 PM Age: 77 years old Clinical indication: Other: Intermittent slurred speech; Additional info: Slurred speech, intermittent weakness TECHNIQUE: Imaging protocol: Computed tomographic angiography of the neck with contrast. 3D rendering (Not supervised by radiologist): MIP and/or 3D reconstructed images were created by the technologist. Contrast material: OMNIPAQUE 350; Contrast volume: 100 ml; Contrast route: INTRAVENOUS (IV); COMPARISON: CT HEAD CERVICAL SPINE WO 04/24/2022 6:49 AM FINDINGS: Right common carotid artery: No stenosis. No dissection or occlusion. Right internal carotid artery: See Other arteries finding. Right external carotid artery: No occlusion or stenosis of the origin. Left common carotid artery: Calcification LEFT common carotid artery most pronounced the bifurcation resulting in mild stenosis. Line calcification of the proximal LEFT internal carotid artery resulting 30% stenosis. Left internal carotid artery: See Left common carotid artery finding. Left external carotid artery: No occlusion or stenosis of the origin. Right vertebral artery: No stenosis. No dissection or occlusion. Left vertebral artery: No stenosis. No dissection or occlusion. Aorta: The brachiocephalic vessels arising from the aortic arch have a normal 3 vessel branching pattern. Thyroid gland unremarkable as visualized. Line aero digestive tract unremarkable as visualized. Other arteries: Calcification of the RIGHT common artery bifurcation resulting mild stenosis. Line calcification proximal RIGHT internal carotid artery resulting approximately 20% stenosis. 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 Lymph nodes: Nonenlarged mediastinal lymph nodes measuring less than 1 cm in short axis median sternotomy. Soft tissues: Normal. No significant soft tissue swelling. Bones/joints: Extensive degenerative changes of the cervical spine reversal of the cervical lordosis. No acute osseous findings. Lungs: Motion artifact degrades evaluation of the lung images however, no gross consolidation. Other findings: Calcification origin RIGHT external resulting mild stenosis. Codominant vertebral arteries. No stenosis, dissection, or occlusion IMPRESSION: 1. No hemodynamically stenosis. 2. Additional incidental/nonemergent findings as discussed above. REFERENCES: NASCET CRITERIA. The degree of stenosis in the cervical segment of the internal carotid artery is based on NASCET criteria. Normal is no stenosis. Mild is less than 50% stenosis. Moderate is 50-69% stenosis. Severe is 70% to 99% stenosis. Total occlusion is no detectable patent lumen. Dictated and Authenticated by: Argentina Dejesus MD. Ordering:BLANKA Echeverria MD
[2023-01-04] MEDS: Apixaban 5 MG TAB PO (17:49)
[2023-01-04 18:28] LABS: Bilirubin Negative (Negative); Blood Negative (Negative); Clarity Clear (Clear); Glucose Negative (Negative); Ketones Negative (Negative); Leukocyte Esterase Negative (Negative); Nitrite Negative (Negative)
== END 2023-01-04 19:59 | disposition home or self-care (01) ==
PROVIDERS: Emergency Provider Physician Assistant; PCP Internal Medicine
DX: G45.9 Transient cerebral ischemic attack, unspecified (principal); I10 Essential (primary) hypertension; I25.10 Atherosclerotic heart disease of native coronary artery without angina pectoris; I48.91 Unspecified atrial fibrillation; Z79.01 Long term (current) use of anticoagulants; Z95.1 Presence of aortocoronary bypass graft
CPT/HCPCS: 70496; 70498; 80053; 93005; 99285; 70450; 71046; 81003; 83735; 84484; 85025; 85610; 85730; 93010; J3490

== ENCOUNTER 2023-01-08 01:19 | Outpatient (CLI) | payer MEDICARE, BC, SELFPAY ==
--- NOTE | 2023-01-08 | DI.MRI_ITS ---
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 COMPARISON: CT CT BRAIN NECK CTA from 01/04/2023 FINDINGS: VENTRICLES AND EXTRA AXIAL SPACES: Normal in size and morphology for the patient's age. MIDLINE SHIFT: None. CEREBRAL PARENCHYMA: No focus of restricted diffusion to suggest acute infarct. No space-occupying le sameer identified. There are foci seen in the white matter on the FLAIR and T2 weighted images most con sistent with small vessel ischemic disease. HEMORRHAGE: None. BRAINSTEM/CEREBELLUM: Normal. CALVARIUM: Normal. VISUALIZED PARANASAL SINUSES/MASTOIDS:Clear. [place]: Normal flow void. PITUITARY GLAND: Unremarkable. OTHER FINDINGS: None. IMPRESSION: 1. Cerebral atrophy and small vessel ischemic disease. 2. No evidence of an acute territorial infarct. DATA REPOSITORY:
== END 2023-01-08 01:39 ==
LOC: DI 01:21
PROVIDERS: PCP Internal Medicine; Visit Provider Internal Medicine
DX: I69.951 Hemiplegia and hemiparesis following unspecified cerebrovascular disease affecting right dominant side (principal); G31.89 Other specified degenerative diseases of nervous system; I67.89 Other cerebrovascular disease
CPT/HCPCS: 70551

== ENCOUNTER → 2023-01-14 12:50 | Outpatient (BNVA) | payer MEDICARE, BC, SELFPAY | PROVIDERS: PCP Internal Medicine; Referring Provider Internal Medicine; Visit Provider Urology | DX: Z08 Encounter for follow-up examination after completed treatment for malignant neoplasm (principal); Z85.51 Personal history of malignant neoplasm of bladder; C68.9 Malignant neoplasm of urinary organ, unspecified | CPT/HCPCS: 52000; 81003 ==

== ENCOUNTER 2023-01-14 17:58 | Outpatient (REF) | payer MEDICARE, BC, SELFPAY ==
[2023-01-14 23:03] LABS: PSA, Diagnostic 6.3 ng/mL (<=6.5)
== END 2023-01-14 17:59 | disposition home or self-care (01) ==
LOC: LBN 17:58
PROVIDERS: PCP Internal Medicine; Visit Provider Urology
DX: C61 Malignant neoplasm of prostate (principal)
CPT/HCPCS: 84153

== ENCOUNTER 2023-03-03 16:29 | Outpatient (REF) | payer MEDICARE, BC, SELFPAY ==
[2023-03-03 20:03] LABS: Bilirubin Small (Negative); Blood Negative (Negative); Clarity Clear (Clear); Glucose Negative (Negative); Ketones Trace mg/dL (Negative); Leukocyte Esterase Negative (Negative); Nitrite Negative (Negative); Specific Gravity 1.025 (1.005-1.025)
== END 2023-03-03 16:30 | disposition home or self-care (01) ==
LOC: NCHCN 16:29
PROVIDERS: PCP Internal Medicine; Visit Provider Nurse Practitioner Family
DX: N39.0 Urinary tract infection, site not specified (principal)
CPT/HCPCS: 81003

== ENCOUNTER → 2023-04-15 13:35 | Outpatient (BNVA) | payer MEDICARE, BC, SELFPAY | PROVIDERS: PCP Internal Medicine; Referring Provider Internal Medicine; Visit Provider Psychiatry & Neurology Neurology | DX: Z09 Encounter for follow-up examination after completed treatment for conditions other than malignant neoplasm (principal); Z86.73 Personal history of transient ischemic attack (TIA), and cerebral infarction without residual deficits; I48.91 Unspecified atrial fibrillation; Z79.01 Long term (current) use of anticoagulants; I10 Essential (primary) hypertension | CPT/HCPCS: 99204 ==

== ENCOUNTER 2023-05-27 10:51 | Outpatient (REF) | payer MEDICARE, BC, SELFPAY ==
--- NOTE | 2023-05-27 11:15 | SKI_PTH ---
PATIENT: Parag Cervantes LOC: [facility] U#:[id number] AGE/SX: 77/M ROOM: RE05/27/[address]: Corina Caruso MD : 1945 BED: DIS: 05/27/2023 SPEC #: [id number] RECD: 05/27/23 12:57 STATUS: CRIS REChristy #: [id number] DONTE: 05/27/23 11:[address]: Corina Caruso DEPT: Surgical Specimen RECD BY: Bela Hayes ENTERED: 05/27/23 12:58 SP TYPE: MELITA GARCIA DR: Kingsley Handy Tissues: 1 - SKIN BIOPSY(SHAVE/PUNCH) Procedures: SKIN LEVEL 4 Comments: [id number]
== END 2023-05-27 10:52 | disposition home or self-care (01) ==
LOC: LBN 10:51
PROVIDERS: PCP Internal Medicine; Visit Provider Surgery
DX: C44.612 Basal cell carcinoma of skin of right upper limb, including shoulder (principal)
CPT/HCPCS: 88305

== ENCOUNTER → 2023-05-27 10:51 | Outpatient (BNVA) | payer MEDICARE, BC, SELFPAY | PROVIDERS: PCP Internal Medicine; Referring Provider Internal Medicine; Visit Provider Surgery | DX: C44.319 Basal cell carcinoma of skin of other parts of face (principal) | CPT/HCPCS: 11642; 99212 ==

== ENCOUNTER → 2023-06-03 10:56 | Outpatient (BNVA) | payer MEDICARE, BC, SELFPAY | PROVIDERS: PCP Internal Medicine; Referring Provider Internal Medicine; Visit Provider Surgery | DX: Z48.817 Encounter for surgical aftercare following surgery on the skin and subcutaneous tissue (principal); C44.319 Basal cell carcinoma of skin of other parts of face | CPT/HCPCS: 99212 ==

== ENCOUNTER 2023-07-08 03:30 | Outpatient (CLI) | payer MEDICARE, BC, SELFPAY ==
[2023-07-08 16:29] LABS: ALT 24 U/L (16-63); AST 21 U/L (15-37); Albumin 3.5 g/dL (3.4-5.0); Alkaline Phosphatase 102 U/L (46-116); Anion Gap 6.5 mmol/L (3-11); BUN 18 mg/dL (7-18); Bilirubin, Total 1.4 mg/dL (0.2-1.0); CO2 30.5 mmol/L (21.0-32.0); CREATININE 0.9 mg/dL (0.70-1.30); Calcium 9.4 mg/dL (8.5-10.1); Calculated LDL 46 mg/dL (<100); Chloride 102 mmol/L (98-107); Cholesterol 125 mg/dL (<200); Estimated GFR 86.88 (mL/min/1.73m2); Glucose 132 mg/dL (74-106); HDL Cholesterol 70 mg/dL (40-60); NT-proBNP 1038 pg/mL (<300); Potassium 4.1 mmol/L (3.5-5.1); Sodium 139 mmol/L (136-145); Total Protein 7.5 g/dL (6.4-8.2); Triglyceride 48 mg/dL (<150)
[2023-07-09 19:20] LABS: PSA, Diagnostic 7.6 ng/mL (<=6.5)
== END 2023-07-08 03:31 | disposition home or self-care (01) ==
LOC: LBO 03:30
PROVIDERS: PCP Internal Medicine; Visit Provider Urology
DX: I10 Essential (primary) hypertension; R06.00 Dyspnea, unspecified; I25.10 Atherosclerotic heart disease of native coronary artery without angina pectoris; Z95.1 Presence of aortocoronary bypass graft
CPT/HCPCS: 36415; 80053; 80061; 83880; 84153

== ENCOUNTER → 2023-07-15 12:51 | Outpatient (BNVA) | payer MEDICARE, BC, SELFPAY | PROVIDERS: PCP Internal Medicine; Visit Provider Urology | DX: C67.9 Malignant neoplasm of bladder, unspecified (principal); C61 Malignant neoplasm of prostate | CPT/HCPCS: 81003; 99213 ==

== ENCOUNTER 2023-07-15 13:06 | Outpatient (REF) | payer MEDICARE, BC, SELFPAY ==
--- NOTE | 2023-07-15 13:00 | PAPNONF_PTH ---
PATIENT: Parag Cervantes LOC: [facility] U#:[id number] AGE/SX: 77/M ROOM: RE07/15/[address]: Renaldo Morgan MD : 1945 BED: DIS: 07/15/2023 SPEC #: [id number] RECD: 07/15/23 18:28 STATUS: CRIS REChristy #: [id number] DONTE: 07/15/23 13:[address]: Renaldo Morgan DEPT: [facility] Cytology RECD BY: Bela Hayes ENTERED: 07/15/23 18:28 SP TYPE: ELMER GARCIA DR: Kingsley Handy Tissues: 1 - BODY FLUID CYTO(SPUTUM/URINE)[facility] Procedures: BODY FLUID CYTO(URINE/SPUTUM) Comments: [id number] (TV = 40 ml, 30 ml CYTOLYT ADDED) (REFRIGERATED)
== END 2023-07-15 13:07 | disposition home or self-care (01) ==
LOC: LBN 13:06
PROVIDERS: PCP Internal Medicine; Visit Provider Urology
DX: C67.9 Malignant neoplasm of bladder, unspecified (principal)
CPT/HCPCS: 88104

== ENCOUNTER 2024-01-06 04:37 | Outpatient (CLI) | payer MEDICARE, BC, SELFPAY ==
[2024-01-06 18:14] LABS: PSA, Diagnostic 13.1 ng/mL (<=6.5)
== END 2024-01-06 04:38 | disposition home or self-care (01) ==
LOC: LBO 04:37
PROVIDERS: PCP Internal Medicine; Visit Provider Urology
DX: C61 Malignant neoplasm of prostate (principal)
CPT/HCPCS: 36415; 84153

== ENCOUNTER → 2024-02-17 15:11 | Outpatient (BNVA) | payer MEDICARE, BC, SELFPAY | PROVIDERS: PCP Internal Medicine; Referring Provider Internal Medicine; Visit Provider Urology | DX: R31.9 Hematuria, unspecified (principal); C67.9 Malignant neoplasm of bladder, unspecified; C61 Malignant neoplasm of prostate | CPT/HCPCS: 81003; 99213 ==

== ENCOUNTER 2024-02-17 15:50 | Outpatient (REF) | payer MEDICARE, BC, SELFPAY ==
--- NOTE | 2024-02-17 15:45 | PAPNONF_PTH ---
PATIENT: Parag Cervantes LOC: [facility] U#:[id number] AGE/SX: 78/M ROOM: RE02/17/[address]: Renaldo Morgan MD : 1945 BED: DIS: 02/17/2024 SPEC #: [id number] RECD: 02/17/24 18:13 STATUS: CRIS REQ #: [id number] DONTE: 02/17/24 15:[address]: Renaldo Morgan DEPT: [facility] Cytology RECD BY: Bela Hayes ENTERED: 02/17/24 18:13 SP TYPE: ELMER GARCIA DR: Kingsley Handy Tissues: 1 - BODY FLUID CYTO(SPUTUM/URINE)[facility] Procedures: BODY FLUID CYTO(URINE/SPUTUM) Comments: [id number] (TV = 60 ml, 30 ml CYTOLYT ADDED) (REFRIGERATED)
== END 2024-02-17 15:51 | disposition home or self-care (01) ==
LOC: LBN 15:50
PROVIDERS: PCP Internal Medicine; Visit Provider Urology
DX: C61 Malignant neoplasm of prostate (principal); R31.9 Hematuria, unspecified
CPT/HCPCS: 88104

== ENCOUNTER 2024-04-19 15:29 | Outpatient (REF) | payer MEDICARE, BC, SELFPAY ==
[2024-04-19 19:03] LABS: HCT 38.1 % (40.0-50.0); HGB 13.3 g/dL (13.5-17.5); MCH 33.6 pg (27.0-33.0); MCHC 34.9 % (32.0-36.0); MCV 96 fL (80-95); MPV 10.3 fL (8.0-11.0); Platelet Count 178 10^3/uL (130-400); RBC 3.96 10^6/uL (4.36-5.78); RDW 12.6 % (11.8-14.1); RDW-SD 44.3 fL; WBC 5.11 10^3/uL (4.4-10.8)
[2024-04-19 19:22] LABS: ALT 30 U/L (16-63); AST 26 U/L (15-37); Albumin 3.4 g/dL (3.4-5.0); Alkaline Phosphatase 122 U/L (46-116); Anion Gap 7.4 mmol/L (3-11); BUN 16 mg/dL (7-18); Bilirubin, Total 0.92 mg/dL (0.2-1.0); CO2 26.6 mmol/L (21.0-32.0); Calcium 8.7 mg/dL (8.5-10.1); Chloride 102 mmol/L (98-107); Estimated GFR 76.08 (mL/min/1.73m2); Glucose 121 mg/dL (74-106); Potassium 4.9 mmol/L (3.5-5.1); Sodium 136 mmol/L (136-145); Total Protein 7.5 g/dL (6.4-8.2)
== END 2024-04-19 15:30 | disposition home or self-care (01) ==
LOC: NCHCN 15:29
PROVIDERS: PCP Internal Medicine; Visit Provider Internal Medicine
DX: I50.30 Unspecified diastolic (congestive) heart failure (principal)
CPT/HCPCS: 80053; 85027

== ENCOUNTER 2024-08-10 02:00 | Outpatient (CLI) | payer MEDICARE, BC, SELFPAY | END 2024-08-10 02:01 | disposition home or self-care (01) | LOC: LBO 02:01 | PROVIDERS: PCP Internal Medicine; Visit Provider Urology | DX: C61 Malignant neoplasm of prostate (principal) | CPT/HCPCS: 36415; 84153 ==

== ENCOUNTER → 2024-08-17 13:48 | Outpatient (BNVA) | payer MEDICARE, BC, SELFPAY | PROVIDERS: PCP Internal Medicine; Visit Provider Urology | DX: C67.9 Malignant neoplasm of bladder, unspecified (principal); C61 Malignant neoplasm of prostate | CPT/HCPCS: 81003; 99213 ==

== ENCOUNTER 2025-03-17 02:40 | Outpatient (CLI) | payer MEDICARE, BC, SELFPAY ==
--- NOTE | 2025-03-17 | DI.CT_ITS ---
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 TECHNIQUE: Multi planar reconstructions were performed. CONTRAST MATERIAL: None COMPARISON: CT CT ABDOMEN PELVIS WO/W from 09/27/2021 FINDINGS: CHEST: LUNGS: There is a 3 millimeter nodule in the posterior basal segment of the right lower lobe which is unchanged from the uppermost images of an abdominal CT scan performed 09/27/2021. There is also a 4 millimeter nodule in the left lower lobe which also appears unchanged from that study.. There is a 2-3 millimeter nodule in the right middle lobe and another in the right upper lobe. There are no confluent infiltrates nor pleural effusions. MEDIASTINUM: There is no obvious hilar nor mediastinal adenopathy. CARDIAC: There are sternotomy wires and cardiomegaly. No pericardial effusion.Caliber of the thoraci c aorta is within normal limits. VISUALIZED UPPER ABDOMEN:No adrenal masses. OSSEOUS: No significant osseous lesions.Sternal fusion plates. This in addition to sternal wires. A dvanced degenerative changes both glenohumeral joints. No compression fractures. No significant oss eous lesions. IMPRESSION: 1. Small bilateral lung nodules which are probably benign. The 3 millimeter nodules in the lower lob es appear unchanged from the uppermost images of an abdominal CT scan performed in September 2021. 2. No infiltrates nor pleural effusions nor intrathoracic adenopathy. 3. Cardiomegaly. Sternotomy. No pericardial effusion. No pleural effusions. RADIATION DOSE DELIVERED: 1,144.93mGy.cm Total DLP DATA REPOSITORY: All CT scans at this facility are submitted to the National Radiology Data Registry (NRDR) Dose Index Registry (DIR) with the [employer] (ACR). RADIATION OPTIMIZATION: All CT scans at this facility use at least one of these dose optimization te chniques: automated exposure control; mA and/or kV adjustment per patient size (includes targeted exa ms where dose is matched to clinical indication); or iterative reconstruction.
== END 2025-03-17 03:00 ==
LOC: DI 02:40
PROVIDERS: PCP Internal Medicine; Visit Provider Internal Medicine
DX: J98.4 Other disorders of lung (principal); I51.7 Cardiomegaly
CPT/HCPCS: 71250